=== PATIENT | female | born 1975 | race Caucasian/White ===

== ENCOUNTER 2020-04-20 11:13 | Outpatient (REF) | payer SELFPAY ==
--- NOTE | 2020-04-20 | MM_ITS ---
EXAMINATION: MM DIAGNOSTIC DIGITAL BREAST TOMOSYNTHESIS, BILATERAL US DIAGNOSTIC ULTRASOUND BREAST, RIGHT CLINICAL INFORMATION: 44-year-old with recent history right breast pain and imaging and transient redness. Symptoms have markedly improved following recent course of antibiotics. Family history breast cancer, mother, grandmother, aunt. The lifetime risk of breast cancer based on the Tyrer-Cuzick Model is 19%. COMPARISON: Mammography: 02/01/2018, 05/14/2013 (baseline) TECHNIQUE: Digital breast tomosynthesis is performed in both the craniocaudal and mediolateral oblique views along with computer-aided detection (CAD). Synthesized 2D images are generated from the tomosynthesis. Additional right CC view is provided. Ultrasound right breast is targeted to the areas of clinical concern. Patient is able to point to the areas of recent concern at time of imaging. Grayscale imaging and color Doppler are performed without and with harmonics. FINDINGS: There are scattered areas of fibroglandular density (ACR BI-RADS breast composition Category b). Parenchymal pattern is similar to prior studies. There is no developing density or interval mass or architectural abnormality. No skin thickening or coarsening of the Chaz's ligaments. No focal duct ectasia. No abnormal calcifications. The axilla are unremarkable. Ultrasound demonstrates no cystic or solid mass, architectural abnormality, or focal duct ectasia. No skin thickening or edema tracking in the soft tissue planes. Results are discussed with the patient at time of visit. MM/MM tomosynthesis diagnostic BI IMPRESSION: No mammographic evidence of malignancy or inflammatory changes. Unremarkable targeted right breast ultrasound. ASSESSMENT: BI-RADS 1: Negative RECOMMENDATION: 1. Patient should be managed based on the clinical impression. 2. Otherwise, routine annual screening mammography. This patient's information was entered into a reminder system with a target due date for their next mammogram.
== END 2020-04-20 11:14 | disposition home or self-care (01) ==
LOC: HO.MAMMO 11:13
PROVIDERS: PCP Family Medicine; Visit Provider Registered Nurse Community Health
DX: N64.4 Mastodynia (principal)
CPT/HCPCS: 76642; 77062; 77066

== ENCOUNTER 2020-10-19 13:06 | Emergency (ER) | payer MEDICAID, SELFPAY ==
[2020-10-19] VITALS (9 sets, daily range): BP systolic 107–128; BP diastolic 50–77; PULSE 69–90; RESP 14–18; TEMP 36.9–37.1; O2SAT 99–100; BMI 34.3
--- NOTE | 2020-10-19 13:39 | ED.RECABL ---
HPI - Recheck/Abnormal Lab/Rx General Chief Complaint: Recheck/Abnormal Lab/Rx Stated Complaint: BLOOD TRANSFUSION Time Seen by Provider: 10/19/20 13:30 Source: patient Mode of arrival: ambulatory Limitations: no limitations History of Present Illness HPI narrative: 44 yo female with past medical history of GENESIS secondary to heavy vaginal bleeding here with low blood counts. Patient was at her PCP yesterday and had annual labs drawn which showed a hgb 6.5. Not available here. H.o multiple blood transfusions last in April. Followed by INVESTIGATOR [employer]ARC[employer] for heavy vaginal bleeding. No current vaginal bleeding. Denies weakness, dizziness, chest pain or SOB. Does feel tired but states I have 8 kids so thats not abnormal. Here seeking blood transfusion. Patient tells me she normally received 2 units of blood and is discharged home. Related Data Allergies Allergy/AdvReac Type Severity Reaction Status Date / Time No Known Allergies Allergy Unverified 02/12/20 15:10 Review of Systems Review of Systems: Yes all other systems are reviewed and are negative Constitutional: Constitutional: Reports no additional constitutional complaints, Denies body ache(s), Denies chills, Denies fever(s), Denies headache(s), Reports lethargy and Denies weakness Eyes: Eyes: Reports no additional eye complaints and Denies change in vision ENT: Reports system reviewed and no additional complaints, except as documented, Denies dizziness, Denies headache(s), Denies nasal congestion, Denies nasal discharge and Denies neck pain Cardiovascular: Cardiovascular: Reports no additional cardiovascular complaints, Denies chest pain, Denies leg edema and Denies dyspnea Respiratory: Respiratory: Reports no additional respiratory complaints, Denies cough and Denies dyspnea Gastrointestinal: Gastrointestinal: Reports no additional gastrointestinal complaints, Denies abdominal pain, Denies diarrhea, Denies nausea and Denies vomiting Genitourinary: Genitourinary: Reports no additional female genitourinary complaints and Denies urinary incontinence Musculoskeletal: Musculoskeletal: Reports no additional musculoskeletal complaints, Denies back pain, Denies arthralgias, Denies joint swelling, Denies neck pain, Denies numbness and Denies tingling Integumentary/Breasts: Skin/Breast: Reports system reviewed and no additional complaints, except as docu and Denies rash Neurologic: Reports system reviewed and no additional complaints, except as documented, Denies Abnormal speech present, Denies dizziness, Denies headache(s), Denies numbness, Denies tingling and Denies weakness PMFSH Past Medical History Medical History Anemia Social History Social History Alcohol intake: never Smoking Status: Never smoker Use of substances other than those prescribed or required for medical reasons: No Advance Directives: No Advance Directives Information Provided: No Patient : No Physical Exam Vital Signs: Vital Signs: Last Vital Signs Temp 98.4 F 10/19/20 16:47 Pulse 73 10/19/20 16:47 Resp 16 10/19/20 16:47 BP 113/70 10/19/20 16:47 Pulse Ox 100 10/19/20 15:58 Body Mass Index 34.3 Const: General: cooperative, healthy appearing, comfortable and no acute distress Orientation/consciousness: patient oriented x3 Limitations: no limitations HENMT: Head: Yes normal to inspection Ears: hearing grossly normal bilaterally General nose exam: Normal external nose present Face and sinus: Yes normal facial exam Mouth: Normal oral and palatal mucosa present Throat: Yes posterior oropharynx normal Eyes: General: appearance normal, both eyes and all related structures Conjunctivae: conjunctival abnormal (pale conjunctivae ) bilateral Pupils: Equal, round and reactive pupils present Neck: Neck: Yes normal visual inspection Chest: Chest palpation & inspection: normal inspection of the chest Resp: Effort & Inspection: normal respiratory effort Auscultation: clear to auscultation bilaterally Cardio: Rate: regular rate Rhythm: regular rhythm Peripheral pulses: Peripheral pulses 2+ throughout GI: Inspection: Yes normal to inspection Palpation (GI): Soft to palpation and nontender Auscultation: normal bowel sounds Back/Spine/Pelvis: Thoracic/Lumbar Spine: thoracic and lumbar spine normal to inspection Skin: General skin exam: no rashes or lesions noted Neuro: General: patient oriented x3, no focal motor deficits and normal sensation to monofilament Cranial nerves: Yes Equal, round and reactive pupils present Cognition (Neuro): normal cognition Speech: No Abnormal speech present Gait exam (Neuro): Normal gait present Motor exam (neuro): 5/5 motor strength present throughout Extrem: General: Yes normal to inspection Course Course Course Narrative: 44 yo female with past medical history of chronic anemia secondary to vag bleeding here with complaints of annual labs done yesterday which showed hgb 6.5. No current bleeding. Asymptomatic with exception of fatigue. Will repeat labs, UA, ur preg. 1430-hgb 6.3. Patient consented for PRBC. 2 units PRBC ordered. Recommended checking pelvic exam but the patient declined this. She denies any active vaginal bleeding. She tells me she does have heavy periods and this has been the reason for her anemia in the past. She will follow-up with her powder line repairer.. Offered admission for the patient but she declined this. 1700-sign out to Mayur MCLEAN pending blood, repeat CBC and discharge home MDM - Recheck/Abnormal Lab/Rx Medical Records Attestation: I reviewed the patient's medical records. Lab Data Attestation: I reviewed the patient's lab results. Result diagrams: 10/19/20 14:05 10/19/20 14:05 Labs: Lab Results 10/19/20 10/19/20 10/19/20 Range/Units 14:05 14:05 14:05 WBC 4.1 L (4.8-10.8) X10*3/uL RBC 3.75 L (4.20-5.50) X10*6/uL Hgb 6.3 L* (12.0-16.0) g/dl Hct 24.4 L (37-47) % MCV 65.1 L (80-98) fL MCH 16.8 L (27.0-33.0) pg MCHC 25.8 L (31.0-35.0) g/dl RDW 18.6 H (11.0-16.0) % Plt Count 246 (160-400) X10*3/uL MPV 8.7 L (9.4-12.3) fL Immature Gran % (Auto) 0.2 (0.0-0.4) % Neut % (Auto) 48.9 (45-73) % Lymph % (Auto) 38.6 (20-40) % Roberts % (Auto) 9.9 (2-11) % Eos % (Auto) 1.2 (0-4) % Baso % (Auto) 1.2 (0-2) % Lymph # (Auto) 1.6 (1.2-4.9) X10*3/uL Roberts # (Auto) 0.4 (0.1-1.2) X10*3/uL Eos # (Auto) 0.1 (0.0-0.4) X10*3/uL Baso # (Auto) 0.1 (0.0-0.2) X10*3/uL Abs Immat Gran (auto) 0.01 (0.00-0.03) X10*3/uL Absolute Neuts (auto) 2.0 (2.0-8.3) X10*3/uL Absolute Nucleated RBC 0.000 (0.0-0.012) X10*3/uL Nucleated RBC % (auto) 0.0 (0.0-0.2) /100WBC PT 12.6 (10.8-13.0) SEC INR 1.1 (0.9-1.1) Sodium 134 L (135-145) mmol/L Potassium 3.7 (3.3-5.1) mmol/L Chloride 104 (96-108) mmol/L Carbon Dioxide 24 (22-29) mmol/L Anion Gap 10 L (12-20) BUN 13 (9-16) mg/dL Creatinine 0.68 (0.5-1.4) mg/dL Estim Creat Clear Calc 113.3 Estimated GFR > 60 Random Glucose 148 H (60-115) mg/dL Calcium 8.5 (8.4-10.2) mg/dL Blood Type Antibody Screen Crossmatch 10/19/20 Range/Units 14:42 WBC (4.8-10.8) X10*3/uL RBC (4.20-5.50) X10*6/uL Hgb (12.0-16.0) g/dl Hct (37-47) % MCV (80-98) fL MCH (27.0-33.0) pg MCHC (31.0-35.0) g/dl RDW (11.0-16.0) % Plt Count (160-400) X10*3/uL MPV (9.4-12.3) fL Immature Gran % (Auto) (0.0-0.4) % Neut % (Auto) (45-73) % Lymph % (Auto) (20-40) % Roberts % (Auto) (2-11) % Eos % (Auto) (0-4) % Baso % (Auto) (0-2) % Lymph # (Auto) (1.2-4.9) X10*3/uL Roberts # (Auto) (0.1-1.2) X10*3/uL Eos # (Auto) (0.0-0.4) X10*3/uL Baso # (Auto) (0.0-0.2) X10*3/uL Abs Immat Gran (auto) (0.00-0.03) X10*3/uL Absolute Neuts (auto) (2.0-8.3) X10*3/uL Absolute Nucleated RBC (0.0-0.012) X10*3/uL Nucleated RBC % (auto) (0.0-0.2) /100WBC PT (10.8-13.0) SEC INR (0.9-1.1) Sodium (135-145) mmol/L Potassium (3.3-5.1) mmol/L Chloride (96-108) mmol/L Carbon Dioxide (22-29) mmol/L Anion Gap (12-20) BUN (9-16) mg/dL Creatinine (0.5-1.4) mg/dL Estim Creat Clear Calc Estimated GFR Random Glucose (60-115) mg/dL Calcium (8.4-10.2) mg/dL Blood Type O Positive Antibody Screen NEGATIVE Crossmatch See Detail Discharge Plan Discharge Clinical Impression: GENESIS (iron deficiency anemia) Qualifiers: Iron deficiency anemia type: chronic blood loss Qualified Code(s): D50.0 - Iron deficiency anemia secondary to blood loss (chronic) Patient Disposition: Home, Self-Care Instructions: Iron Deficiency Anemia (ED) Additional Instructions: Continue your iron supplements Follow-up with your powder line repairer in regard to her vaginal bleeding Referrals: Leesa Mcintosh MD [Primary Care Provider] - 2 days
[2020-10-19 14:09] LABS: MANUAL DIFF FLAG NO
[2020-10-19 14:13] LABS: Basophils Absolute Auto 0.1 X10*3/uL (0.0-0.2); Basophils Percent Auto 1.2 % (0-2); Eosinophils Absolute Auto 0.1 X10*3/uL (0.0-0.4); Eosinophils Percent Auto 1.2 % (0-4); Hematocrit 24.4 % (37-47); Imm Gran Abs Auto 0.01 X10*3/uL (0.00-0.03); Imm Gran Pct Auto 0.2 % (0.0-0.4); Lymphocytes Absolute Auto 1.6 X10*3/uL (1.2-4.9); Lymphocytes Percent Auto 38.6 % (20-40); Mean Corpuscular HGB Conc 25.8 g/dl (31.0-35.0); Mean Corpuscular Hemoglobin 16.8 pg (27.0-33.0); Mean Corpuscular Volume 65.1 fL (80-98); Mean Platelet Volume 8.7 fL (9.4-12.3); Monocytes Absolute Auto 0.4 X10*3/uL (0.1-1.2); Monocytes Percent Auto 9.9 % (2-11); Neutrophils Percent Auto 48.9 % (45-73); Platelet Count 246 X10*3/uL (160-400); Red Blood Count 3.75 X10*6/uL (4.20-5.50); Red Cell Distribution Width 18.6 % (11.0-16.0); White Blood Count 4.1 X10*3/uL (4.8-10.8)
[2020-10-19 14:21] LABS: INTERNATIONAL NORM RATIO 1.1 (0.9-1.1); Prothrombin Time 12.6 SEC (10.8-13.0)
[2020-10-19 14:25] LABS: Hemoglobin 6.3 g/dl (12.0-16.0)
[2020-10-19 14:32] LABS: Anion Gap 10 (12-20); Blood Urea Nitrogen 13 mg/dL (9-16); Calcium 8.5 mg/dL (8.4-10.2); Carbon Dioxide 24 mmol/L (22-29); Chloride 104 mmol/L (96-108); Creatinine Clr Calc Pharmacy 113.3; Estimated Glomerular Filt Rate > 60; Glucose Random 148 mg/dL (60-115); Potassium 3.7 mmol/L (3.3-5.1); Sodium 134 mmol/L (135-145)
[2020-10-19 17:59] LABS: Glucose Urine UA NEG (NEG); Leukocyte Esterase Urine NEG (NEG); Nitrite Urine NEG (NEG); Specific Gravity - Urine 1.015 (1.005-1.025); Urine Blood NEG (NEG); Urine Ketones NEG (NEG); Urine Protein NEG (NEG-TRACE)
[2020-10-19 18:00] LABS: Appearance Urine CLEAR; Color Urine YELLOW
[2020-10-19 18:02] LABS: UPreg QC Valid YES; Urine Pregnancy NEGATIVE (NEGATIVE)
[2020-10-19 19:24] LABS: Hematocrit 31.2 % (37-47); Mean Corpuscular HGB Conc 28.8 g/dl (31.0-35.0); Mean Corpuscular Hemoglobin 20.7 pg (27.0-33.0); Mean Corpuscular Volume 71.7 fL (80-98); Mean Platelet Volume 9.1 fL (9.4-12.3); Platelet Count 224 X10*3/uL (160-400); Red Blood Count 4.35 X10*6/uL (4.20-5.50); Red Cell Distribution Width 24.5 % (11.0-16.0); White Blood Count 4.5 X10*3/uL (4.8-10.8)
== END 2020-10-19 20:08 | disposition home or self-care (01) ==
PROVIDERS: Nurse Practitioner Family; Emergency Provider Emergency Medicine; PCP Family Medicine
DX: D50.0 Iron deficiency anemia secondary to blood loss (chronic) (principal); N93.9 Abnormal uterine and vaginal bleeding, unspecified
CPT/HCPCS: 36415; 36430; 80048; 81003; 81025; 85025; 85027; 85610; 86850; 86900; 86901; 86923; 99284; 99285; P9016

== ENCOUNTER 2021-02-18 08:35 | Outpatient (REF) | payer MEDICAID, SELFPAY | END 2021-02-18 08:36 | disposition home or self-care (01) | LOC: HO.MDS 08:35 | PROVIDERS: PCP Family Medicine; Visit Provider Internal Medicine Medical Oncology | DX: D50.9 Iron deficiency anemia, unspecified (principal) | CPT/HCPCS: 96365; J2916 ==

== ENCOUNTER 2021-03-11 08:34 | Outpatient (REF) | payer MEDICAID, SELFPAY | END 2021-03-11 08:35 | disposition home or self-care (01) | LOC: HO.MDS 08:34 | PROVIDERS: PCP Internal Medicine; Visit Provider Internal Medicine Medical Oncology | DX: D50.9 Iron deficiency anemia, unspecified (principal) | CPT/HCPCS: 96365; J2916 ==

== ENCOUNTER 2021-05-27 08:46 | Outpatient (REF) | payer MEDICAID, SELFPAY ==
[2021-05-27 10:12] LABS: Binax Internal Control QC Valid; Binax Lot number: 9864; Binax Now Covid-19 Ag Negative (Negative)
== END 2021-05-27 08:47 | disposition home or self-care (01) ==
LOC: HO.LAB 08:46
PROVIDERS: Visit Provider Internal Medicine
DX: Z20.822 Contact with and (suspected) exposure to COVID-19 (principal)
CPT/HCPCS: 36415; C9803

== ENCOUNTER 2022-02-03 22:44 | Emergency (ER) | payer MEDICAID, SELFPAY ==
[2022-02-03 22:47] VITALS: BP 115/66; PULSE 78; RESP 18; TEMP 36.6; O2SAT 100; BMI 33.6
[2022-02-03 23:02] LABS: MANUAL DIFF FLAG NO
[2022-02-03 23:04] LABS: Basophils Percent Auto 0.8 % (0-2); Eosinophils Percent Auto 1.1 % (0-4); Imm Gran Abs Auto 0.01 X10*3/uL (0.00-0.03); Imm Gran Pct Auto 0.3 % (0.0-0.4); Lymphocytes Absolute Auto 1.3 X10*3/uL (1.2-4.9); Lymphocytes Percent Auto 34.7 % (20-40); Mean Corpuscular HGB Conc 24.5 g/dl (31.0-35.0); Mean Corpuscular Hemoglobin 15.1 pg (27.0-33.0); Mean Platelet Volume 8.7 fL (9.4-12.3); Monocytes Absolute Auto 0.4 X10*3/uL (0.1-1.2); Monocytes Percent Auto 11.3 % (2-11); Neutrophils Percent Auto 51.8 % (45-73); Platelet Count 305 X10*3/uL (160-400); Red Blood Count 3.57 X10*6/uL (4.20-5.50); Red Cell Distribution Width 19.9 % (11.0-16.0); White Blood Count 3.8 X10*3/uL (4.8-10.8)
[2022-02-03 23:08] LABS: Mean Corpuscular Volume 61.6 fL (80.0-98.0)
[2022-02-03 23:09] LABS: Hemoglobin 5.4 g/dl (12.0-16.0)
[2022-02-03 23:31] LABS: Alanine Aminotransferase 11 U/L (0-31); Albumin Level 4.3 g/dL (3.5-5.0); Alkaline Phosphatase 81 U/L (39-117); Anion Gap 16 (12-20); Aspartate Amino Transferase 19 U/L (5-31); Bilirubin Total 0.4 mg/dL (0.0-1.0); Blood Urea Nitrogen 11 mg/dL (9-16); Calcium 8.6 mg/dL (8.4-10.2); Carbon Dioxide 20 mmol/L (22-29); Chloride 106 mmol/L (96-108); Creatinine Clr Calc Pharmacy 116.7; Estimated Glomerular Filt Rate > 60; Glucose Random 107 mg/dL (60-115); Potassium 4.4 mmol/L (3.3-5.1); Sodium 138 mmol/L (135-145); Total Protein 7.6 g/dL (6.5-8.0)
--- NOTE | 2022-02-03 23:38 | ED_ITS ---
HPI - Recheck/Abnormal Lab/Rx General Chief Complaint: Recheck/Abnormal Lab/Rx Stated Complaint: need blood transfusion per DR. Mcintosh Time Seen by Provider: 02/03/22 22:51 Source: patient Mode of arrival: ambulatory Limitations: no limitations History of Present Illness HPI narrative: Patient comes to the emergency room complaining of low hemoglobin level. Patient states that she has been feeling very tired lately, no dizziness, no chest pain or shortness of breath. Patient states that when she started feeling tired, she goes to her PCP to get her hemoglobin checked because it usually means her hemoglobin is on the lower side. Patient was told that her hemoglobin is low and needed a transfusion. Patient has had multiple transfusions in the past. Other than fatigue, patient has no other symptoms. Patient states that she gets iron transfusions twice a year. Patient has history of heavy menstrual periods, patient is not currently menstruating. Reviewing patient's previous notes, seems that celiac disease was suspected at some point. Patient was never evaluated for celiac disease. Related Data Home Medications Medication Instructions Recorded Confirmed ferrous sulfate 325 mg (65 mg 325 mg PO DAILY 10/22/20 10/22/20 iron) tablet (Iron (ferrous sulfate)) Allergies Allergy/AdvReac Type Severity Reaction Status Date / Time No Known Allergies Allergy Unverified 02/12/20 15:10 Review of Systems Review of Systems: , Constitutional : No Weight loss, No Fever, No Chills, No Night Sweats, complaining of Fatigue, No Malaise ENT/Mouth : No Hearing loss, No Ear Pain, No Nasal Congestion, No Sinus Pain, No Hoarseness, No sore throat, No Rhinorrhea, No Swallowing Difficulty Eyes: No Eye Pain, No Swelling, No Redness, No Foreign Body, No Discharge, No Vision Changes Cardiovascular : No Chest Pain, No SOB, No Dyspnea on Exertion, No Orthopnea, No Edema, No Palpitations Respiratory : No Cough, No Sputum, No Wheezing, No Smoke Exposure, No Dyspnea Gastrointestinal : No Nausea, No Vomiting, No Diarrhea, No Constipation, No abdominal Pain, No Hematochezia, No Melena Genitourinary : no irregular bleeding, No Dysuria, No Urinary Frequency, No Hematuria, No Urinary Incontinence, No Urgency, No Flank Pain, No Urinary Flow Changes, No Hesitancy Musculoskeletal : No joint pain, No Myalgias, No Joint Swelling Skin : No Skin Lesions, No rash Neuro : No Weakness, No Numbness, No Paresthesias, No Loss of Consciousness, No Dizziness, No Headache Psych : No Anxiety/Panic, No Depression, No SI/HI/AH/VH, No Social Issues, Heme/Lymph: No Bruising, No Bleeding,No Lymphadenopathy Endocrine : No Polyuria, No Polydipsia, No Temperature Intolerance [facility] Past Medical History Medical History Anemia Family History Family History (Updated 10/22/20 @ 15:41 by Eda Christianson) Mother Breast cancer Maternal Aunt Breast cancer Maternal Grandmother Breast cancer Maternal Grandfather Skin cancer Social History Social History (Updated 10/22/20 @ 15:40 by Eda Christianson) Alcohol intake: never Patient Tobacco Use Status: Never used Tobacco Advance Directives: No Advance Directives Information Provided: No Physical Exam Vital Signs: Vital Signs: Last Vital Signs Temp 98.3 F 02/04/22 00:40 Pulse 76 02/04/22 00:40 Resp 19 02/04/22 00:40 BP 111/54 L 02/04/22 00:40 Pulse Ox 100 02/03/22 22:47 O2 Del Method 02/03/22 22:47 BMI result Body Mass Index 33.6 Const: Other: Appearance: Alert. Oriented X3. No acute distress. Eyes: Pupils equal, round and reactive to light. Pale conjunctiva ENT: Pharynx normal. Neck: Normal inspection. Neck supple. No lymph nodes noted. No crepitus CVS: Normal heart rate and rhythm. Pulses normal. Normal S1 and S2 Respiratory: No respiratory distress. Breath sounds normal. No Wheezing. No rales Abdomen: Soft and nontender. No rigidity. No distention. Skin: Skin warm and dry. Pale skin color. Normal skin turgor. Extremities: No lower extremity edema. No Lacerations. No Rash Neuro: Oriented X 3. No motor deficit. No sensory deficit. Moving all extremities. No slurred speech. CN 2 through 12 grossly intact Psych: calm, cooperative, normal affect Course Course Course Narrative: Patient agrees to have a blood transfusion. Patient signed the consent, no in patient's chart. Patient will likely need 3 units of blood. 01:50, patient tolerating well the blood transfusion, so far they are still on the 1st unit of blood. H&H pending after the last unit of blood. Sign-out given to Dr. Platt MDM - Recheck/Abnormal Lab/Rx Lab Data Result diagrams: 02/03/22 22:56 02/03/22 22:56 Labs: Lab Results 02/03/22 02/03/22 02/03/22 Range/Units 22:56 22:56 22:56 WBC 3.8 L (4.8-10.8) X10*3/uL RBC 3.57 L (4.20-5.50) X10*6/uL Hgb 5.4 L* (12.0-16.0) g/dl Hct 22.0 L (37.0-47.0) % MCV 61.6 L (80.0-98.0) fL MCH 15.1 L (27.0-33.0) pg MCHC 24.5 L (31.0-35.0) g/dl RDW 19.9 H (11.0-16.0) % Plt Count 305 (160-400) X10*3/uL MPV 8.7 L (9.4-12.3) fL Immature Gran % (Auto) 0.3 (0.0-0.4) % Neut % (Auto) 51.8 (45-73) % Lymph % (Auto) 34.7 (20-40) % Storey % (Auto) 11.3 H (2-11) % Eos % (Auto) 1.1 (0-4) % Baso % (Auto) 0.8 (0-2) % Lymph # (Auto) 1.3 (1.2-4.9) X10*3/uL Storey # (Auto) 0.4 (0.1-1.2) X10*3/uL Eos # (Auto) 0.0 (0.0-0.4) X10*3/uL Baso # (Auto) 0.0 (0.0-0.2) X10*3/uL Abs Immat Gran (auto) 0.01 (0.00-0.03) X10*3/uL Absolute Neuts (auto) 2.0 (2.0-8.3) x10*3/uL Absolute Nucleated RBC 0.000 (0.0-0.012) X10*3/uL Nucleated RBC % (auto) 0.0 (0.0-0.2) /100WBC Sodium 138 (135-145) mmol/L Potassium 4.4 (3.3-5.1) mmol/L Chloride 106 (96-108) mmol/L Carbon Dioxide 20 L (22-29) mmol/L Anion Gap 16 (12-20) BUN 11 (9-16) mg/dL Creatinine 0.64 (0.5-1.4) mg/dL Estim Creat Clear Calc 116.7 Estimated GFR > 60 Random Glucose 107 (60-115) mg/dL Calcium 8.6 (8.4-10.2) mg/dL Total Bilirubin 0.4 (0.0-1.0) mg/dL AST 19 (5-31) U/L ALT 11 (0-31) U/L Alkaline Phosphatase 81 (39-117) U/L Total Protein 7.6 (6.5-8.0) g/dL Albumin 4.3 (3.5-5.0) g/dL Blood Type O Positive Antibody Screen NEGATIVE Crossmatch See Detail Critical Care Time Critical Care Time Critical Care Time: Yes Total Critical Care Time: 60 Attestation: I have personally provided critical care time. Time includes review of lab data, radiology results, discussion with consultants, and monitoring for potential decompensation. Intervention performed as documented. Discharge Plan Discharge Clinical Impression: Iron deficiency anemia Patient Disposition: Still a Patient Prescriptions: No Action ferrous sulfate [Iron (ferrous sulfate)] 325 mg (65 mg iron) Tablet 325 mg PO DAILY
[2022-02-04] VITALS (12 sets, daily range): BP systolic 109–130; BP diastolic 54–84; PULSE 69–87; RESP 12–19; TEMP 36.6–37.2; O2SAT 98–100
--- NOTE | 2022-02-04 00:44 | PC.NURSE ---
Pt blood transfusion started, 2nd set vital signs similar to 1st, no S&S of reaction, no resp distress, rash/hives/itchiness, call light within reach, this RN continues to monitor.
--- NOTE | 2022-02-04 02:58 | PC.NURSE ---
Blood was hung 20 minutes after scheduled time, blood was in cooler bag and Lab was called and they verified that blood was safe to hang.
[2022-02-04 08:04] LABS: Hematocrit 32.5 % (37.0-47.0); Hemoglobin 9.3 g/dl (12.0-16.0)
== END 2022-02-04 09:22 | disposition home or self-care (01) ==
PROVIDERS: Emergency Provider Emergency Medicine; PCP Family Medicine
DX: D50.9 Iron deficiency anemia, unspecified (principal); Z79.899 Other long term (current) drug therapy
CPT/HCPCS: 36415; 36430; 80053; 85014; 85018; 85025; 86850; 86900; 86901; 86923; 99284; 99285; P9016

== ENCOUNTER 2022-10-04 10:05 | Emergency (ER) | payer MEDICAID, SELFPAY ==
[2022-10-04 10:51] VITALS: BP 131/74; PULSE 78; RESP 16; TEMP 36.3; O2SAT 100; BMI 35.4
[2022-10-04 11:31] LABS: MANUAL DIFF FLAG NO
[2022-10-04 11:36] LABS: Basophils Percent Auto 1.1 % (0-2); Eosinophils Percent Auto 1.1 % (0-4); Hematocrit 33.3 % (37.0-47.0); Hemoglobin 9.4 g/dl (12.0-16.0); Imm Gran Abs Auto 0.01 X10*3/uL (0.00-0.03); Imm Gran Pct Auto 0.3 % (0.0-0.4); Lymphocytes Absolute Auto 1.4 X10*3/uL (1.2-4.9); Lymphocytes Percent Auto 37.6 % (20-40); Mean Corpuscular HGB Conc 28.2 g/dl (31.0-35.0); Mean Corpuscular Hemoglobin 19.5 pg (27.0-33.0); Mean Corpuscular Volume 69.2 fL (80.0-98.0); Mean Platelet Volume 8.5 fL (9.4-12.3); Monocytes Absolute Auto 0.5 X10*3/uL (0.1-1.2); Monocytes Percent Auto 13.1 % (2-11); Neutrophils Absolute Auto 1.8 x10*3/uL (2.0-8.3); Neutrophils Percent Auto 46.8 % (45-73); Platelet Count 298 X10*3/uL (160-400); Red Blood Count 4.81 X10*6/uL (4.20-5.50); Red Cell Distribution Width 17.3 % (11.0-16.0); White Blood Count 3.8 X10*3/uL (4.8-10.8)
[2022-10-04 11:50] LABS: IDNOW Serial# BCCEAD1C; Influenza A Negative (Negative); Influenza B2 Negative (Negative)
--- NOTE | 2022-10-04 12:01 | ED.GENADULT ---
HPI - General Adult General Chief complaint: General Medical Stated complaint: Low Iron Time Seen by Provider: 10/04/22 12:00 Source: patient Mode of arrival: ambulatory Limitations: no limitations History of Present Illness HPI narrative: 46-year-old female with a history of iron deficiency anemia here with complaints of several days of generalized weakness, body aches, feeling lightheaded. Patient was referred in to have her hemoglobin checked as she has been quite anemic in the past. She does report that she has had some intermittent spotting for the last few months but is on control pills and feels like her menses is not as heavy as it has been before. She denies any abdominal pain, vomiting, diarrhea, chest pain, difficulty breathing, headache, fevers, URI symptoms, urinary symptoms. Related Data Home Medications Medication Instructions Recorded Confirmed ferrous sulfate 325 mg (65 mg 325 mg PO DAILY 10/22/20 10/22/20 iron) tablet (Iron (ferrous sulfate)) Allergies Allergy/AdvReac Type Severity Reaction Status Date / Time No Known Allergies Allergy Unverified 02/12/20 15:10 Review of Systems Review of Systems: Yes all other systems are reviewed and are negative Constitutional: Constitutional: Reports no additional constitutional complaints, Reports body ache(s), Denies chills, Denies fever(s), Denies headache(s) and Reports weakness Eyes: Eyes: Reports no additional eye complaints and Denies change in vision ENT: Reports system reviewed and no additional complaints, except as documented, Denies dizziness, Denies headache(s), Denies nasal congestion, Denies nasal discharge and Denies neck pain Cardiovascular: Cardiovascular: Reports no additional cardiovascular complaints, Denies chest pain, Denies leg edema and Denies dyspnea Respiratory: Respiratory: Reports no additional respiratory complaints, Denies cough and Denies dyspnea Gastrointestinal: Gastrointestinal: Reports no additional gastrointestinal complaints, Denies abdominal pain, Denies diarrhea, Denies nausea and Denies vomiting Genitourinary: Genitourinary: Reports no additional female genitourinary complaints and Denies urinary incontinence Musculoskeletal: Musculoskeletal: Reports no additional musculoskeletal complaints, Denies back pain, Denies arthralgias, Denies joint swelling, Denies neck pain, Denies numbness and Denies tingling Integumentary/Breasts: Skin/Breast: Reports system reviewed and no additional complaints, except as docu and Denies rash Neurologic: Reports system reviewed and no additional complaints, except as documented, Denies dizziness, Denies headache(s), Denies numbness, Denies tingling and Reports weakness PMFSH Past Medical History Attestation statement: The following information was validated with the patient. Source: old records reviewed and nursing notes reviewed Medical History Anemia Family History Family History Mother Breast cancer Maternal Aunt Breast cancer Maternal Grandmother Breast cancer Maternal Grandfather Skin cancer Social History Social History Alcohol intake: never Patient Tobacco Use Status: Never used Tobacco Advance Directives: No Advance Directives Information Provided: Yes Physical Exam ED Vital Signs: Vital Signs - 24 hr 10/04/22 10:51 10/04/22 12:21 10/04/22 12:23 Temperature 97.4 F Pulse Rate 78 71 76 Respiratory Rate 16 Blood Pressure 131/74 113/72 120/68 Pulse Oximetry 100 Oxygen Delivery Method Room Air 10/04/22 12:25 Temperature Pulse Rate 74 Respiratory Rate Blood Pressure 126/74 Pulse Oximetry Oxygen Delivery Method BMI result Body Mass Index 35.4 Const General: cooperative, healthy appearing, comfortable and no acute distress Orientation/consciousness: patient oriented x3 Limitations: no limitations HENMT Head: Yes normal to inspection Ears: hearing grossly normal bilaterally and TM's normal bilaterally General nose exam: Normal external nose present Face and sinus: Yes normal facial exam Throat: Yes posterior oropharynx normal, Yes tonsils normal and Yes uvula midline Eyes General: appearance normal, both eyes and all related structures Pupils: Equal, round and reactive pupils present Neck Neck: Yes normal visual inspection, Yes full ROM, Yes no lymphadenopathy and Yes no meningeal signs Chest Chest palpation & inspection: normal inspection of the chest Resp Effort & Inspection: normal respiratory effort Auscultation: clear to auscultation bilaterally Cardio Rate: regular rate Rhythm: regular rhythm Peripheral pulses: Peripheral pulses 2+ throughout GI Inspection: Yes normal to inspection Palpation (GI): Soft to palpation and nontender Auscultation: normal bowel sounds Back/Spine/Pelvis Thoracic/Lumbar Spine: thoracic and lumbar spine normal to inspection Skin General skin exam: no rashes or lesions noted Neuro General: patient oriented x3, moves all extremities and no meningeal signs Cranial nerves: Yes Equal, round and reactive pupils present Cognition (Neuro): normal cognition Gait exam (Neuro): Normal gait present Extrem General: Yes normal to inspection, Yes no pedal edema and Yes no calf tenderness Course Course Course Narrative: Labs show mild iron deficiency anemia unchanged from previous. Additional labs, orthostatics, EKG and UA are all negative. Patient is well-appearing. I recommend she follow up with primary care doctor outpatient. Reviewed worrisome signs and symptoms when to return to the emergency room. Comfortable plan for discharge home Medical Decision Making Medical Decision Making [facility] Narrative: 46-year-old female here with several days of generalized weakness, body aches and feeling lightheaded. Patient was concerned that her hemoglobin was low. Patient had labs from triage as well as flu testing which was all unremarkable. She does have some mild are deficiency anemia but her hemoglobin is quite stable today. Therefore I will obtain EKG, orthostatics, COVID testing, UA and urine . Differential Diagnosis Differential Diagnoses: The differential diagnosis associated with the presentation includes Anemia, electrolyte abnormality, orthostatic hypotension, viral syndrome, Lab Data [facility] Lab Attestation statement: I reviewed the patient's lab results. 10/04/22 11:26 10/04/22 11:26 Labs: Lab Results 10/04/22 10/04/22 10/04/22 Range/Units 11:26 11:26 11:26 WBC 3.8 L (4.8-10.8) X10*3/uL RBC 4.81 D (4.20-5.50) X10*6/uL Hgb 9.4 L (12.0-16.0) g/dl Hct 33.3 L (37.0-47.0) % MCV 69.2 L (80.0-98.0) fL MCH 19.5 L (27.0-33.0) pg MCHC 28.2 L (31.0-35.0) g/dl RDW 17.3 H (11.0-16.0) % Plt Count 298 (160-400) X10*3/uL MPV 8.5 L (9.4-12.3) fL Immature Gran % (Auto) 0.3 (0.0-0.4) % Neut % (Auto) 46.8 (45-73) % Lymph % (Auto) 37.6 (20-40) % [place] % (Auto) 13.1 H (2-11) % Eos % (Auto) 1.1 (0-4) % Baso % (Auto) 1.1 (0-2) % Lymph # (Auto) 1.4 (1.2-4.9) X10*3/uL [place] # (Auto) 0.5 (0.1-1.2) X10*3/uL Eos # (Auto) 0.0 (0.0-0.4) X10*3/uL Baso # (Auto) 0.0 (0.0-0.2) X10*3/uL Abs Immat Gran (auto) 0.01 (0.00-0.03) X10*3/uL Absolute Neuts (auto) 1.8 L (2.0-8.3) x10*3/uL Absolute Nucleated RBC 0.000 (0.0-0.012) X10*3/uL Nucleated RBC % (auto) 0.0 (0.0-0.2) /100WBC Sodium 139 (135-145) mmol/L Potassium 4.6 (3.3-5.1) mmol/L Chloride 108 (96-108) mmol/L Carbon Dioxide 24 (22-29) mmol/L Anion Gap 12 (12-20) BUN 8 L (9-16) mg/dL Creatinine 0.66 (0.5-1.4) mg/dL Estim Creat Clear Calc 116.3 Estimated GFR > 60 Random Glucose 96 (60-115) mg/dL Calcium 8.9 (8.4-10.2) mg/dL Total Bilirubin 0.4 (0.0-1.0) mg/dL AST 13 (5-31) U/L ALT 10 (0-31) U/L Alkaline Phosphatase 60 (39-117) U/L Total Protein 6.9 (6.5-8.0) g/dL Albumin 3.5 (3.5-5.0) g/dL TSH 0.78 (0.32-4.0) uIU/mL Urine Color Urine Appearance Urine pH (5.0-9.0) Ur Specific [place] (1.005-1.025) Urine Protein (Neg-Trace) mg/dL Urine Glucose (UA) (Negative) mg/dL Urine Ketones (Negative) mg/dL Urine Blood (Negative) Urine Nitrite (Negative) Ur Leukocyte Esterase (Negative) Urine Test (NEGATIVE) COVID-19 (ANAMIKA) (Negative) COVID-19 Clin Com Influenza Type A (KENNEDI) Negative (Negative) Influenza Type B (KENNEDI) Negative (Negative) Influenza A & B Note See Note 10/04/22 10/04/22 10/04/22 Range/Units 12:25 13:50 13:50 WBC (4.8-10.8) X10*3/uL RBC (4.20-5.50) X10*6/uL Hgb (12.0-16.0) g/dl Hct (37.0-47.0) % MCV (80.0-98.0) fL MCH (27.0-33.0) pg MCHC (31.0-35.0) g/dl RDW (11.0-16.0) % Plt Count (160-400) X10*3/uL MPV (9.4-12.3) fL Immature Gran % (Auto) (0.0-0.4) % Neut % (Auto) (45-73) % Lymph % (Auto) (20-40) % [place] % (Auto) (2-11) % Eos % (Auto) (0-4) % Baso % (Auto) (0-2) % Lymph # (Auto) (1.2-4.9) X10*3/uL [place] # (Auto) (0.1-1.2) X10*3/uL Eos # (Auto) (0.0-0.4) X10*3/uL Baso # (Auto) (0.0-0.2) X10*3/uL Abs Immat Gran (auto) (0.00-0.03) X10*3/uL Absolute Neuts (auto) (2.0-8.3) x10*3/uL Absolute Nucleated RBC (0.0-0.012) X10*3/uL Nucleated RBC % (auto) (0.0-0.2) /100WBC Sodium (135-145) mmol/L Potassium (3.3-5.1) mmol/L Chloride (96-108) mmol/L Carbon Dioxide (22-29) mmol/L Anion Gap (12-20) BUN (9-16) mg/dL Creatinine (0.5-1.4) mg/dL Estim Creat Clear Calc Estimated GFR Random Glucose (60-115) mg/dL Calcium (8.4-10.2) mg/dL Total Bilirubin (0.0-1.0) mg/dL AST (5-31) U/L ALT (0-31) U/L Alkaline Phosphatase (39-117) U/L Total Protein (6.5-8.0) g/dL Albumin (3.5-5.0) g/dL TSH (0.32-4.0) uIU/mL Urine Color Yellow Urine Appearance Clear Urine pH 6.5 (5.0-9.0) Ur Specific [place] 1.025 (1.005-1.025) Urine Protein Negative (Neg-Trace) mg/dL Urine Glucose (UA) Negative (Negative) mg/dL Urine Ketones Negative (Negative) mg/dL Urine Blood Negative (Negative) Urine Nitrite Negative (Negative) Ur Leukocyte Esterase Negative (Negative) Urine Test NEGATIVE (NEGATIVE) COVID-19 (ANAMIKA) Negative (Negative) COVID-19 Clin Com See Note Influenza Type A (KENNEDI) (Negative) Influenza Type B (KENNEDI) (Negative) Influenza A & B Note Independent Interpretation I performed an independent interpretation of an: EKG Interpretation: I independently reviewed the EKG which was normal sinus rhythm with a rate of 69, normal MI, normal QRS, normal QT, T-wave inversions in leads V1 which is unchanged from previous EKG 2018. There is also a Q-wave in lead 3 which is unchanged from EKg 2018 Discharge Plan Discharge Clinical Impression: Iron deficiency anemia Patient Disposition: Home, Self-Care Instructions: Anemia (ED) Additional Instructions: Your hemoglobin today is 9.4, hematocrit 33.3 Your additional labs are all okay. Your EKG is normal Please follow-up with her outpatient provider Prescriptions: No Action ferrous sulfate [Iron (ferrous sulfate)] 325 mg (65 mg iron) Tablet 325 mg PO DAILY Referrals: Leesa Mcintosh MD [Primary Care Provider] - 1 week Interventions: ED Discharge Assessment Last Done: 10/04/22 13:54 Discharge Date/Time: 10/04/22 13:55
[2022-10-04 12:06] LABS: Alanine Aminotransferase 10 U/L (0-31); Albumin Level 3.5 g/dL (3.5-5.0); Alkaline Phosphatase 60 U/L (39-117); Anion Gap 12 (12-20); Aspartate Amino Transferase 13 U/L (5-31); Bilirubin Total 0.4 mg/dL (0.0-1.0); Blood Urea Nitrogen 8 mg/dL (9-16); Calcium 8.9 mg/dL (8.4-10.2); Carbon Dioxide 24 mmol/L (22-29); Chloride 108 mmol/L (96-108); Creatinine Clr Calc Pharmacy 116.3; Estimated Glomerular Filt Rate > 60; Glucose Random 96 mg/dL (60-115); Potassium 4.6 mmol/L (3.3-5.1); Sodium 139 mmol/L (135-145); Total Protein 6.9 g/dL (6.5-8.0)
--- NOTE | 2022-10-04 12:10 | ECG_ITS ---
Test Reason : dizziness Blood Pressure : / mmHG Vent. Rate : 069 BPM Atrial Rate : 069 BPM P-R Int : 122 ms QRS Dur : 082 ms QT Int : 390 ms P-R-T Axes : 075 028 031 degrees QTc Int : 417 ms Normal sinus rhythm Low voltage QRS Borderline ECG When compared with ECG of 09-MAY-2018 09:27, No significant change was found Referred By: Tiffany Villarreal Electronically Signed By:EZEKEIL TIMMONS
[2022-10-04 12:21] VITALS: BP 113/72; PULSE 71
[2022-10-04 12:23] VITALS: BP 120/68; PULSE 76
[2022-10-04 12:25] VITALS: BP 126/74; PULSE 74
[2022-10-04 12:46] LABS: COVID-19 Test Negative (Negative); IDNOW Serial# BCCEAD1C
[2022-10-04 13:00] LABS: TSH reflex Free T4 0.78 uIU/mL (0.32-4.0)
[2022-10-04 14:00] LABS: Appearance Urine Clear; Color Urine Yellow; Glucose Urine UA Negative (Negative); Leukocyte Esterase Urine Negative (Negative); Nitrite Urine Negative (Negative); PH 6.5 (5.0-9.0); Specific Gravity - Urine 1.025 (1.005-1.025); Urine Blood Negative (Negative); Urine Ketones Negative (Negative); Urine Protein Negative (Neg-Trace)
[2022-10-04 14:02] LABS: UPreg QC Valid YES; Urine Pregnancy NEGATIVE (NEGATIVE)
== END 2022-10-04 13:55 | disposition home or self-care (01) ==
PROVIDERS: Nurse Practitioner Family; Emergency Provider Emergency Medicine Emergency Medical Services; PCP Family Medicine
DX: D50.9 Iron deficiency anemia, unspecified (principal); Z20.822 Contact with and (suspected) exposure to COVID-19; R53.1 Weakness
CPT/HCPCS: 80053; 81003; 81025; 84443; 85025; 87502; 87635; 93005; 99283

== ENCOUNTER 2023-04-25 16:59 | Outpatient (REF) | payer MEDICAID, SELFPAY ==
[2023-04-25 17:34] LABS: MANUAL DIFF FLAG NO
[2023-04-25 17:47] LABS: Basophils Percent Auto 0.9 % (0-2); Eosinophils Absolute Auto 0.1 X10*3/uL (0.0-0.4); Eosinophils Percent Auto 1.1 % (0-4); Imm Gran Abs Auto 0.02 X10*3/uL (0.00-0.03); Imm Gran Pct Auto 0.4 % (0.0-0.4); Lymphocytes Absolute Auto 1.5 X10*3/uL (1.2-4.9); Lymphocytes Percent Auto 33.3 % (20-40); Mean Corpuscular HGB Conc 25.2 g/dl (31.0-35.0); Mean Platelet Volume 9.2 fL (9.4-12.3); Monocytes Absolute Auto 0.6 X10*3/uL (0.1-1.2); Monocytes Percent Auto 13.7 % (2-11); Neutrophils Absolute Auto 2.3 x10*3/uL (2.0-8.3); Neutrophils Percent Auto 50.6 % (45-73); Platelet Count 325 X10*3/uL (160-400); Red Blood Count 3.63 X10*6/uL (4.20-5.50); Red Cell Distribution Width 19.3 % (11.0-16.0); White Blood Count 4.6 X10*3/uL (4.8-10.8)
[2023-04-25 18:07] LABS: Mean Corpuscular Volume 63.4 fL (80.0-98.0)
[2023-04-25 18:09] LABS: Cholesterol 119 mg/dL (<200); HDL Cholesterol 39 mg/dL (>40); Hemoglobin 5.8 g/dl (12.0-16.0); Iron 15 mcg/dL (30-160); LDL Cholesterol Calculated 63 mg/dL (<100); Percent Iron Saturation 4 % (15-50); Total Iron Binding Capacity 416 mcg/dL (228-428); Triglycerides 87 mg/dL (<150); Unsaturated Iron Binding 401 ug/dL
[2023-04-25 18:26] LABS: Ferritin < 2 ng/mL (10-250); TSH reflex Free T4 0.66 uIU/mL (0.32-4.0)
[2023-04-25 18:35] LABS: Vitamin B12 484 pg/mL (200-900)
[2023-04-26 09:27] LABS: HIV AB/AG Nonreactive (Nonreactive); HIV Num 1 0.05 S/CO (0.00-0.99); ~HepC Num1 0.18 S/CO (0.00-0.79); ~Hepatitis C Antibody Nonreactive (Nonreactive)
== END 2023-04-25 17:00 | disposition home or self-care (01) ==
LOC: HO.HHCL 16:59
PROVIDERS: Visit Provider Family Medicine
DX: Z11.3 Encounter for screening for infections with a predominantly sexual mode of transmission (principal); Z13.220 Encounter for screening for lipoid disorders; Z11.4 Encounter for screening for human immunodeficiency virus [HIV]; D50.9 Iron deficiency anemia, unspecified
CPT/HCPCS: 36415; 80061; 82607; 82728; 82746; 83540; 84443; 85025; 86803; 87389

== ENCOUNTER 2023-04-26 10:01 | Emergency (ER) | payer MEDICAID, SELFPAY ==
[2023-04-26] VITALS (8 sets, daily range): BP systolic 104–145; BP diastolic 51–79; PULSE 72–89; RESP 16–18; TEMP 36.4–36.8; O2SAT 97–100; BMI 34.6
[2023-04-26 11:16] LABS: MANUAL DIFF FLAG NO
--- NOTE | 2023-04-26 11:16 | ED.GENADULT ---
HPI - General Adult General Chief complaint: Recheck/Abnormal Lab/Rx Stated complaint: abnormal labs Time Seen by Provider: 04/26/23 11:04 Source: patient Mode of arrival: ambulatory Limitations: no limitations History of Present Illness HPI narrative: Patient is a 47-year-old female with history of chronic anemia presenting to the emergency department stating that she had labs drawn at PCP office yesterday, was contacted today stating she needed to come to the emergency department for a blood transfusion. States hemoglobin is 5.8. Denies chest pain, palpitations, shortness of breath. Denies dizziness, lightheadedness, syncope. Denies headache or vision changes. States that she was at the PCP office with her child and the child mention to PCP that patient went to bed much earlier than normal the day before and requested that the patient's H&H be tested. She denies feeling fatigued at this time. Denies any hematuria, hematochezia, melena. Denies any abdominal pain. MD complaint: abnormal labs Onset (ago): day(s) Associated symptoms: denies other symptoms Treatments prior to arrival: none Related Data Home Medications Medication Instructions Recorded Confirmed ferrous sulfate 325 mg (65 mg 325 mg PO DAILY 10/22/20 10/22/20 iron) tablet (Iron (ferrous sulfate)) Allergies Allergy/AdvReac Type Severity Reaction Status Date / Time No Known Allergies Allergy Verified 04/26/23 10:20 Review of Systems Review of Systems: As per HPI Yes all other systems are reviewed and are negative Constitutional: Constitutional: Reports as per HPI PMFSH Past Medical History Medical History Anemia Family History Family History Mother Breast cancer Maternal Aunt Breast cancer Maternal Grandmother Breast cancer Maternal Grandfather Skin cancer Social History Social History Alcohol intake: never Patient Tobacco Use Status: Never used Tobacco Advance Directives: No Physical Exam ED Vital Signs: Vital Signs - 24 hr 04/26/23 10:20 04/26/23 13:18 04/26/23 13:42 Temperature 97.5 F 98.0 F 97.8 F Pulse Rate 85 84 85 Respiratory Rate 18 16 16 Blood Pressure 106/51 L 104/59 L 107/62 Pulse Oximetry 100 Oxygen Delivery Method Room Air 04/26/23 16:50 04/26/23 17:11 04/26/23 17:15 Temperature 97.7 F 98.3 F 98.3 F Pulse Rate 78 72 72 Respiratory Rate 16 16 16 Blood Pressure 108/69 105/62 106/64 Pulse Oximetry 97 Oxygen Delivery Method Room Air 04/26/23 17:27 04/26/23 17:27 Temperature 98.1 F 98.1 F Pulse Rate 74 74 Respiratory Rate 16 16 Blood Pressure 111/61 111/61 Pulse Oximetry Oxygen Delivery Method BMI result Body Mass Index 34.6 Vital signs have been reviewed and appear to be correct. Blood pressure normal. Heart rate normal. Respiratory rate normal. Temperature normal. Oxygen saturation normal. Const General: cooperative, healthy appearing and no acute distress Orientation/consciousness: oriented to person, oriented to place, oriented to time and patient oriented x3 Limitations: no limitations HENMT Head: Yes normocephalic and Yes atraumatic Ears: external ears normal General nose exam: Normal external nose present Face and sinus: Yes face symmetric Mouth: oropharynx normal and moist mucous membranes Throat: Yes uvula midline Eyes Pupils: Equal, round and reactive pupils present Neck Neck: Yes normal visual inspection and Yes supple Resp Effort & Inspection: normal respiratory effort and able to speak in complete sentences Auscultation: clear to auscultation bilaterally Cardio Rate: regular rate Rhythm: regular rhythm Heart sounds: S1 normal heart sound present and S2 normal heart sound present GI Palpation (GI): Soft to palpation and nontender Auscultation: normoactive bowel sounds General: Yes no CVA tenderness Back/Spine/Pelvis Back: no CVA tenderness Skin General skin exam: elasticity normal and turgor normal Neuro General: oriented to person, oriented to place, oriented to time, patient oriented x3, moves all extremities, no focal motor deficits and CN's II-XI intact bilaterally Cranial nerves: Yes Equal, round and reactive pupils present Cognition (Neuro): normal cognition Extrem General: Yes full ROM, Yes no pedal edema and Yes no calf tenderness Psych Mental Status: mental status grossly normal Affect: normal affect Thought process: Normal thought process present Course Reevaluation(s) Reevaluation #1: Patient has received 2 units of RBCs, denies any new symptoms or complaints. Hemodynamically stable. Patient to be discharged with instructions to follow up with PCP within two days for repeat labs. Return precautions discussed at bedside. Patient verbalized understanding of and agreement with plan. Time: 20:41 Medications Administered Discontinued Medications Generic Name Dose Route Start Last Admin Trade Name Cindy PRN Reason Stop Dose Admin Sodium Chloride 100 mls @ 100 mls/hr 04/26/23 11:58 04/26/23 16:35 Ns IV 04/26/23 12:57 Infused ONCE ONE Infusion Sodium Chloride 100 mls @ 100 mls/hr 04/26/23 11:58 04/26/23 13:32 Ns IV 04/26/23 12:57 100 mls/hr ONCE ONE Administration Medical Decision Making Medical Decision Making [facility] Narrative: Patient is a 47-year-old female with history of chronic anemia presenting to the emergency department stating that she had labs drawn at PCP office yesterday, was contacted today stating she needed to come to the emergency department for a blood transfusion. On exam patient is awake, A+Ox3, VS WNL, afebrile, normal neurological exam without focal deficits, physical exam findings as above. Given reported symptoms and physical exam findings, initial differential includes chronic anemia, fatigue, dehydration. Labs notable for anemia with H&H of 6.0/23.8. Results discussed with patient and discussed possible admission. Patient states that she is agreeable to transfusion of 2 units PRBCs but does not want to be admitted. Given that patient is normotensive, not tachycardic, currently asymptomatic, feel this is reasonable. Two units PRBCs ordered. Please refer to course for remaining clinical decision making. Differential Diagnosis Differential Diagnoses: The differential diagnosis associated with the presentation includes As per [facility] Admission/Observation Consideration of admission/observation: Escalation of care including admission/observation considered Offered admission which patient declined. Lab Data [facility] Lab Attestation statement: I reviewed the patient's lab results. As per [facility] 04/26/23 11:09 04/26/23 11:09 Labs: Lab Results 04/26/23 Range/Units 11:09 WBC 4.4 L (4.8-10.8) X10*3/uL RBC 3.75 L (4.20-5.50) X10*6/uL Hgb 6.0 L* (12.0-16.0) g/dl Hct 23.8 L (37.0-47.0) % MCV 63.5 L (80.0-98.0) fL MCH 16.0 L (27.0-33.0) pg MCHC 25.2 L (31.0-35.0) g/dl RDW 19.0 H (11.0-16.0) % Plt Count 314 (160-400) X10*3/uL MPV 9.1 L (9.4-12.3) fL Immature Gran % (Auto) 0.2 (0.0-0.4) % Neut % (Auto) 51.9 (45-73) % Lymph % (Auto) 31.8 (20-40) % [place] % (Auto) 14.3 H (2-11) % Eos % (Auto) 0.9 (0-4) % Baso % (Auto) 0.9 (0-2) % Lymph # (Auto) 1.4 (1.2-4.9) X10*3/uL [place] # (Auto) 0.6 (0.1-1.2) X10*3/uL Eos # (Auto) 0.0 (0.0-0.4) X10*3/uL Baso # (Auto) 0.0 (0.0-0.2) X10*3/uL Abs Immat Gran (auto) 0.01 (0.00-0.03) X10*3/uL Absolute Neuts (auto) 2.3 (2.0-8.3) x10*3/uL Absolute Nucleated RBC 0.000 (0.0-0.012) X10*3/uL Nucleated RBC % (auto) 0.0 (0.0-0.2) /100WBC Sodium 136 (135-145) mmol/L Potassium 4.1 (3.3-5.1) mmol/L Chloride 108 (96-108) mmol/L Carbon Dioxide 21 L (22-29) mmol/L Anion Gap 11 L (12-20) BUN 9 (9-16) mg/dL Creatinine 0.53 (0.5-1.4) mg/dL Estim Creat Clear Calc 141.4 Estimated GFR > 60 Random Glucose 93 (60-115) mg/dL Calcium 8.6 (8.4-10.2) mg/dL Blood Type O Positive Antibody Screen NEGATIVE Crossmatch See Detail External Record Review External record reviewed: Inpatient record, Office record and Outpatient record Chronic Conditions Patient?s care impacted by: Other (anemia) Critical Care Time Critical Care Time Critical Care Time: Yes Total Critical Care Time: 45 Attestation: I have personally provided critical care time exclusive of time spent on separately billable procedures. Time includes review of lab data, radiology results, discussion with consultants, and monitoring for potential decompensation. Intervention performed as documented. Discharge Plan Discharge Clinical Impression: Chronic anemia Patient Disposition: Home, Self-Care Instructions: Anemia (ED) Additional Instructions: You were evaluated in the emergency department today for abnormal labs. Your hemoglobin and hematocrit were low. You were given 2 units of red blood cells in the emergency department today. Please follow up with your primary care provider within 2 days for recheck of labs. Return to the emergency department if you develop chest pain, palpitations, shortness of breath, dizziness, lightheadedness, blood in your urine or stool, dark tarry stool, fainting or any other concerning symptoms. Prescriptions: No Action ferrous sulfate [Iron (ferrous sulfate)] 325 mg (65 mg iron) Tablet 325 mg PO DAILY
--- NOTE | 2023-04-26 11:16 | PC.NURSE ---
history of chronic anemia per patient, lab work yesterday showed low hemoglobin and was told to come in today. patient asymptomatic and offering no complaints at this time. IV established, labs drawn and sent.
[2023-04-26 11:18] LABS: Basophils Percent Auto 0.9 % (0-2); Eosinophils Percent Auto 0.9 % (0-4); Hematocrit 23.8 % (37.0-47.0); Imm Gran Abs Auto 0.01 X10*3/uL (0.00-0.03); Imm Gran Pct Auto 0.2 % (0.0-0.4); Lymphocytes Absolute Auto 1.4 X10*3/uL (1.2-4.9); Lymphocytes Percent Auto 31.8 % (20-40); Mean Corpuscular HGB Conc 25.2 g/dl (31.0-35.0); Mean Platelet Volume 9.1 fL (9.4-12.3); Monocytes Absolute Auto 0.6 X10*3/uL (0.1-1.2); Monocytes Percent Auto 14.3 % (2-11); Neutrophils Absolute Auto 2.3 x10*3/uL (2.0-8.3); Neutrophils Percent Auto 51.9 % (45-73); Platelet Count 314 X10*3/uL (160-400); Red Blood Count 3.75 X10*6/uL (4.20-5.50); White Blood Count 4.4 X10*3/uL (4.8-10.8)
[2023-04-26 11:33] LABS: Anion Gap 11 (12-20); Blood Urea Nitrogen 9 mg/dL (9-16); Calcium 8.6 mg/dL (8.4-10.2); Carbon Dioxide 21 mmol/L (22-29); Chloride 108 mmol/L (96-108); Creatinine Clr Calc Pharmacy 141.4; Estimated Glomerular Filt Rate > 60; Glucose Random 93 mg/dL (60-115); Potassium 4.1 mmol/L (3.3-5.1); Sodium 136 mmol/L (135-145)
[2023-04-26 11:41] LABS: Mean Corpuscular Volume 63.5 fL (80.0-98.0)
--- NOTE | 2023-04-26 13:27 | PC.NURSE ---
Addendum entered by Zoraida Lira 04/26/23 13:41: continues to show no signs/symptoms of distress within first 15 minutes of infusion, tolerating well. continues to rest comfortably in room with even and unlabored respirations. Original Note: first unit of blood infusing at this time. patient with bilateral iv in each AC
--- NOTE | 2023-04-26 17:16 | PC.NURSE ---
second liter of blood infusing, continues to offer no complaints at this time
--- NOTE | 2023-04-26 19:35 | PC.NURSE ---
this rn assumed care of pt. pt receiving blood transfusion at this time, pt tolerating well.
--- NOTE | 2023-04-26 20:47 | PC.NURSE ---
pt blood completed at this time, saline open and flowing. pt denies SOB and chest pain. pt states she feels well
== END 2023-04-26 21:31 | disposition home or self-care (01) ==
PROVIDERS: Emergency Provider Emergency Medicine Emergency Medical Services; PCP Family Medicine
DX: D64.9 Anemia, unspecified (principal); Z79.899 Other long term (current) drug therapy
CPT/HCPCS: 36415; 36430; 80048; 85025; 86850; 86900; 86901; 86923; 96360; 96361; 99284; 99285; P9016

== ENCOUNTER 2023-08-31 07:36 | Emergency (ER) | payer MEDICAID, SELFPAY ==
[2023-08-31 07:44] VITALS: BP 121/70; PULSE 70; RESP 16; TEMP 36.3; O2SAT 98; BMI 14947.4
[2023-08-31 08:27] LABS: MANUAL DIFF FLAG NO
[2023-08-31 08:32] LABS: Basophils Percent Auto 0.6 % (0-2); Eosinophils Absolute Auto 0.1 X10*3/uL (0.0-0.4); Eosinophils Percent Auto 1.3 % (0-4); Hemoglobin 7.2 g/dl (12.0-16.0); Imm Gran Abs Auto 0.01 X10*3/uL (0.00-0.03); Imm Gran Pct Auto 0.2 % (0.0-0.4); Lymphocytes Absolute Auto 1.2 X10*3/uL (1.2-4.9); Mean Corpuscular HGB Conc 26.7 g/dl (31.0-35.0); Mean Platelet Volume 9.3 fL (9.4-12.3); Monocytes Absolute Auto 0.3 X10*3/uL (0.1-1.2); Neutrophils Percent Auto 64.9 % (45-73); Platelet Count 214 X10*3/uL (160-400); Red Blood Count 4.24 X10*6/uL (4.20-5.50); Red Cell Distribution Width 18.2 % (11.0-16.0); White Blood Count 4.7 X10*3/uL (4.8-10.8)
[2023-08-31 08:33] LABS: Mean Corpuscular Volume 63.7 fL (80.0-98.0)
[2023-08-31 08:41] LABS: Alanine Aminotransferase 9 U/L (0-31); Albumin Level 3.8 g/dL (3.5-5.0); Alkaline Phosphatase 75 U/L (39-117); Anion Gap 11 (12-20); Aspartate Amino Transferase 16 U/L (5-31); Bilirubin Total 0.4 mg/dL (0.0-1.0); Blood Urea Nitrogen 11 mg/dL (9-16); Calcium 8.5 mg/dL (8.4-10.2); Carbon Dioxide 23 mmol/L (22-29); Chloride 110 mmol/L (96-108); Estimated Glomerular Filt Rate > 60; Glucose Random 101 mg/dL (60-115); Potassium 3.7 mmol/L (3.3-5.1); Sodium 140 mmol/L (135-145); Total Protein 7.1 g/dL (6.5-8.0)
--- NOTE | 2023-08-31 09:28 | ED_ITS ---
HPI - General Adult General Chief complaint: Dizziness Stated complaint: Weak Headache Cough Time Seen by Provider: 08/31/23 09:01 Source: patient Mode of arrival: ambulatory Limitations: no limitations History of Present Illness HPI narrative: patient is a 47-year-old female who presents emergency department for evaluation of fatigue, lightheadedness, intermittent headache, intermittent cough. Symptom onset over the past few weeks with progression. She does admit to having heavy menstrual periods and chronic iron-deficiency anemia. Reports that she typically receives a blood transfusion every 3-4 months. She does not recall the exact date of her last transfusion but she states it has been a few months. She reports that her children have been ill recently with upper respiratory type symptoms. denies fevers, chills, neck pain, neck stiffness, confusion, chest pain, shortness of breath, difficulty breathing, nausea, vomiting, abdominal pain. Related Data Home Medications ?Medication ?Instructions ?Recorded ?Confirmed ferrous sulfate 325 mg (65 mg 325 mg PO DAILY 10/22/20 10/22/20 iron) tablet (Iron (ferrous sulfate)) Allergies Allergy/AdvReac Type Severity Reaction Status Date / Time No Known Allergies Allergy Verified 08/31/23 07:50 Review of Systems 2 Review of Systems: Yes all other systems are reviewed and are negative PMFSH Past Medical History Attestation statement: The following information was validated with the patient. Source: old records reviewed Medical History Anemia Family History Family History Mother Breast cancer Maternal Aunt Breast cancer Maternal Grandmother Breast cancer Maternal Grandfather Skin cancer Social History Social History Alcohol intake: never Patient Tobacco Use Status: Never used Tobacco Advance Directives: No Advance Directives Information Provided: No Physical Exam ED Vital Signs: Vital Signs - 24 hr 08/31/23 07:44 Temperature 97.4 F Pulse Rate 70 Respiratory Rate 16 Blood Pressure 121/70 Pulse Oximetry 98 Oxygen Delivery Method Room Air BMI result Body Mass Index 96014.4 Appearance: Alert.?Oriented to person, place and time. No acute distress.?Normal affect. Eyes: Pupils equal, round and reactive to light.? ENT: Pharynx normal.?? Neck: Normal inspection.? Neck supple.?? CVS: Heart sounds normal. Normal heart rate and rhythm.? Pulses normal.?? Respiratory: No respiratory distress.? Lung sounds clear to auscultation bilaterally?? Abdomen: Soft and non-tender. Normoactive bowel sounds. Skin: Skin warm and dry.? Pale for ethnicity.? Extremities: No lower extremity edema.? No calf ttp? Neuro: Moves all extremities spontaneously. Sensation intact bilaterally. Ambulates with normal steady gait. Medical Decision Making Medical Decision Making [facility] Narrative: patient is a 47-year-old female with past medical history of iron-deficiency anemia presenting to emergency department today for evaluation of weakness fatigue headaches and lightheadedness intermittently. No focal neurological deficits. Reports symptoms have been experienced in the past with her anemia, but she would also like to exclude any viral type illnesses. Upon review of her labs today she does have a microcytic anemia however hemoglobin and hematocrit of 7.2/27.0. Patient was made aware of this, advised that she should follow-up closely outpatient with her diesel engine tester and schedule routine outpatient transfusion, at this time do not feel that she requires emergent transfusion of PRBCs. CMP is overall unremarkable. Viral panel reveals Negative findings. TSH within normal range. Stable for discharge home, discussed worrisome signs and symptoms that would warrant re-evaluation in the emergency department. Differential Diagnosis Differential Diagnoses: The differential diagnosis associated with the presentation includes ( anemia, viral syndrome, thyroid dysfunction. not consistent with meningitis) Admission/Observation Consideration of admission/observation: Escalation of care including admission/observation considered ( see narrative above) Lab Data MDM Lab Attestation statement: I reviewed the patient's lab results. ( see narrative above) 08/31/23 08:22 08/31/23 08:22 Labs: Lab Results 08/31/23 08/31/23 Range/Units 08:22 09:12 WBC 4.7 L (4.8-10.8) X10*3/uL RBC 4.24 (4.20-5.50) X10*6/uL Hgb 7.2 L (12.0-16.0) g/dl Hct 27.0 L (37.0-47.0) % MCV 63.7 L (80.0-98.0) fL MCH 17.0 L (27.0-33.0) pg MCHC 26.7 L (31.0-35.0) g/dl RDW 18.2 H (11.0-16.0) % Plt Count 214 D (160-400) X10*3/uL MPV 9.3 L (9.4-12.3) fL Immature Gran % (Auto) 0.2 (0.0-0.4) % Neut % (Auto) 64.9 (45-73) % Lymph % (Auto) 26.0 (20-40) % [place] % (Auto) 7.0 (2-11) % Eos % (Auto) 1.3 (0-4) % Baso % (Auto) 0.6 (0-2) % Lymph # (Auto) 1.2 (1.2-4.9) X10*3/uL [place] # (Auto) 0.3 (0.1-1.2) X10*3/uL Eos # (Auto) 0.1 (0.0-0.4) X10*3/uL Baso # (Auto) 0.0 (0.0-0.2) X10*3/uL Abs Immat Gran (auto) 0.01 (0.00-0.03) X10*3/uL Absolute Neuts (auto) 3.0 (2.0-8.3) x10*3/uL Absolute Nucleated RBC 0.000 (0.0-0.012) X10*3/uL Nucleated RBC % (auto) 0.0 (0.0-0.2) /100WBC Sodium 140 (135-145) mmol/L Potassium 3.7 (3.3-5.1) mmol/L Chloride 110 H (96-108) mmol/L Carbon Dioxide 23 (22-29) mmol/L Anion Gap 11 L (12-20) BUN 11 (9-16) mg/dL Creatinine 0.60 (0.5-1.4) mg/dL Estim Creat Clear Calc -31.0 Estimated GFR > 60 Random Glucose 101 (60-115) mg/dL Calcium 8.5 (8.4-10.2) mg/dL Total Bilirubin 0.4 (0.0-1.0) mg/dL AST 16 (5-31) U/L ALT 9 (0-31) U/L Alkaline Phosphatase 75 (39-117) U/L Total Protein 7.1 (6.5-8.0) g/dL Albumin 3.8 (3.5-5.0) g/dL TSH 0.49 (0.32-4.0) uIU/mL Influenza Type A (PCR) NEGATIVE (Negative) Influenza Type B (PCR) NEGATIVE (Negative) RSV RNA Qual (PCR) NEGATIVE (Negative) SARS-CoV-2 RNA (RT-PCR) NEGATIVE (Negative) External Record Review External record reviewed: Outpatient record Discharge Plan Discharge Clinical Impression: Iron deficiency anemia Patient Disposition: Home, Self-Care Additional Instructions: as discussed continue taking your iron supplementation daily as recommended. Follow-up closely with your diesel engine tester. Return back to emergency department any new or worsening symptoms or concerns. Prescriptions: No Action ferrous sulfate [Iron (ferrous sulfate)] 325 mg (65 mg iron) Tablet 325 mg PO DAILY Referrals: Leesa Mcintosh MD [Primary Care Provider] - Print Language: Persian
[2023-08-31 09:59] LABS: Influenza A PCR NEGATIVE (Negative); Influenza B PCR NEGATIVE (Negative); Resp Syncy Virus RNA Qual PCR NEGATIVE (Negative); SARS COV2 PCR INHOUSE NEGATIVE (Negative)
--- NOTE | 2023-08-31 10:14 | PC.NURSE ---
pt has been sitting upright in bed in no distress while in tx area. pt has been speaking in full clear sentences and moving all ext = and briskly. awaiting lab results.
[2023-08-31 10:28] LABS: TSH reflex Free T4 0.49 uIU/mL (0.32-4.0)
[2023-08-31 10:55] VITALS: BP 120/83; PULSE 74; RESP 16; TEMP 36.9; O2SAT 98
== END 2023-08-31 10:56 | disposition home or self-care (01) ==
PROVIDERS: Nurse Practitioner Family; Emergency Provider Emergency Medicine; PCP Family Medicine
DX: D50.9 Iron deficiency anemia, unspecified (principal)
CPT/HCPCS: 0241U; 36415; 80053; 84443; 85025; 99282; 99283

== ENCOUNTER → 2023-11-21 11:00 | Outpatient (BNV) | payer MEDICAID, SELFPAY | PROVIDERS: PCP Family Medicine; Visit Provider Radiology Diagnostic Radiology | DX: Z12.31 Encounter for screening mammogram for malignant neoplasm of breast (principal) | CPT/HCPCS: 77063; 77067 ==

== ENCOUNTER 2023-11-21 11:01 | Outpatient (REF) | payer MEDICAID, SELFPAY | END 2023-11-21 11:02 | disposition home or self-care (01) | LOC: HO.MAMMO 11:01 | PROVIDERS: PCP Family Medicine; Visit Provider Family Medicine | DX: Z12.31 Encounter for screening mammogram for malignant neoplasm of breast (principal) | CPT/HCPCS: 77063; 77067 ==

== ENCOUNTER 2023-12-03 12:01 | Outpatient (REF) | payer MEDICAID, SELFPAY ==
[2023-12-03 13:50] LABS: MANUAL DIFF FLAG NO
[2023-12-03 14:07] LABS: Basophils Percent Auto 1.2 % (0-2); Eosinophils Percent Auto 0.6 % (0-4); Hematocrit 23.5 % (37.0-47.0); Lymphocytes Absolute Auto 1.3 X10*3/uL (1.2-4.9); Lymphocytes Percent Auto 38.7 % (20-40); Mean Corpuscular HGB Conc 25.5 g/dl (31.0-35.0); Mean Platelet Volume 9.5 fL (9.4-12.3); Monocytes Absolute Auto 0.5 X10*3/uL (0.1-1.2); Monocytes Percent Auto 15.2 % (2-11); Neutrophils Absolute Auto 1.4 x10*3/uL (2.0-8.3); Neutrophils Percent Auto 44.3 % (45-73); Platelet Count 282 X10*3/uL (160-400); Red Blood Count 3.74 X10*6/uL (4.20-5.50); White Blood Count 3.2 X10*3/uL (4.8-10.8)
[2023-12-03 14:37] LABS: Mean Corpuscular Volume 62.8 fL (80.0-98.0)
[2023-12-03 15:06] LABS: Iron 16 mcg/dL (30-160); Percent Iron Saturation 4 % (15-50); Total Iron Binding Capacity 402 mcg/dL (228-428); Unsaturated Iron Binding 386 ug/dL
[2023-12-03 15:16] LABS: Vitamin B12 524 pg/mL (200-900)
== END 2023-12-03 12:02 | disposition home or self-care (01) ==
LOC: HO.HHCL 12:01
PROVIDERS: Visit Provider Family Medicine
DX: D50.9 Iron deficiency anemia, unspecified (principal)
CPT/HCPCS: 36415; 82607; 83540; 85025

== ENCOUNTER 2023-12-04 06:57 | Emergency (ER) | payer MEDICAID, SELFPAY ==
[2023-12-04] VITALS (14 sets, daily range): BP systolic 101–110; BP diastolic 54–70; PULSE 64–83; RESP 14–19; TEMP 36.6–37; O2SAT 100; BMI 33.1
[2023-12-04 07:37] LABS: Hematocrit 23.4 % (37.0-47.0); Mean Corpuscular HGB Conc 25.6 g/dl (31.0-35.0); Mean Corpuscular Hemoglobin 15.9 pg (27.0-33.0); Mean Platelet Volume 9.1 fL (9.4-12.3); Platelet Count 249 X10*3/uL (160-400); Red Blood Count 3.78 X10*6/uL (4.20-5.50); Red Cell Distribution Width 18.6 % (11.0-16.0)
[2023-12-04 07:38] LABS: Mean Corpuscular Volume 61.9 fL (80.0-98.0); White Blood Count 2.5 X10*3/uL (4.8-10.8)
[2023-12-04 07:51] LABS: Anion Gap 8 (12-20); Blood Urea Nitrogen 7 mg/dL (9-16); Calcium 8.9 mg/dL (8.4-10.2); Carbon Dioxide 22 mmol/L (22-29); Chloride 111 mmol/L (96-108); Creatinine Clr Calc Pharmacy 116.9; Estimated Glomerular Filt Rate > 60; Glucose Random 97 mg/dL (60-115); Potassium 4.4 mmol/L (3.3-5.1); Sodium 137 mmol/L (135-145)
--- NOTE | 2023-12-04 08:00 | ED.RECABL ---
HPI - Recheck/Abnormal Lab/Rx General Chief Complaint: Recheck/Abnormal Lab/Rx Stated Complaint: blood transfusion Time Seen by Provider: 12/04/23 07:43 Source: patient Mode of arrival: ambulatory Limitations: no limitations History of Present Illness ED Provider: Marcus HOYT HPI narrative: 48 year old female hx of iron deficiency anemia requiring iron transfusions in the past and blood transfusions presents w/ fatigue , and concerns she needs a blood transfusion as her PCP told her that her hemaglobin was 6.0 and she needed one. Reports last transfusion was a few months ago and last iron infusion was about a year ago which she did not tolerate well due to joint pain and swelling. Patient reports overall she is feeling well at times she gets lightheaded if she changes positions rapidly, and she has been sleeping more than usual. She reports she has iron pills but does not take them regularly. Denies chest pain, shortness breath, fevers, chills, recent illness, vaginal bleeding, rectal bleeding headache, vision changes, dizziness. Related Data Home Medications ?Medication ?Instructions ?Recorded ?Confirmed ferrous sulfate 325 mg (65 mg 325 mg PO DAILY 10/22/20 10/22/20 iron) tablet (Iron (ferrous sulfate)) Allergies Allergy/AdvReac Type Severity Reaction Status Date / Time No Known Allergies Allergy Verified 12/04/23 07:21 Review of Systems Review of Systems: Yes all other systems are reviewed and are negative PMFSH Past Medical History Attestation statement: The following information was validated with the patient. Source: old records reviewed and nursing notes reviewed Medical History Anemia Family History Family History Mother Breast cancer Maternal Aunt Breast cancer Maternal Grandmother Breast cancer Maternal Grandfather Skin cancer Social History Social History Alcohol intake: never Patient Tobacco Use Status: Never used Tobacco Physical Exam Vital Signs: Vital Signs: Last Vital Signs Temp 98.1 F 12/04/23 10:50 Pulse 75 12/04/23 10:50 Resp 19 12/04/23 10:50 BP 109/60 12/04/23 10:50 Pulse Ox 100 12/04/23 10:50 O2 Del Method Room Air 12/04/23 10:50 BMI result Body Mass Index 33.1 vss Appearance: Alert.? Oriented X3.? No acute distress.? Head: Normocephalic, atraumatic, no step-offs or deformities Eyes: Pupils equal, round and reactive to light.? Neck: Normal inspection.? Neck supple.? CVS: Normal heart rate and rhythm.? Pulses normal.? Respiratory: No respiratory distress.? Breath sounds normal.? Abdomen: Soft and nontender.? Skin: Skin warm and dry.? Normal skin color.? Normal skin turgor.? Extremities: No lower extremity edema.? No calf ttp. 5/5 strength to bilateral upper and lower extremities Neuro: Oriented X 3.? No motor deficit.? No sensory deficit. CN 2-12 intact Rectal exam: refused for this reason unable to obtain OBS Course Reevaluation(s) Reevaluation #1: CBC with baseline leukopenia and with a microcytic anemia that appears to be lower than patient's baseline. Patient's chemistry unremarkable. Patient refusing occult blood per rectum sample. She states she has had multiple in the past all of which have been negative. I did obtain verbal and written consent for blood transfusion. 2 units of packed red blood cells are ordered. Will repeat labs after she receives blood. Time: 08:09 Reevaluation #2: Patient doing well with blood. Repeat labs pending. Time: 10:37 Reevaluation #3: Orthostatic vital signs negative. Patient feeling better. Repeat hemoglobin 7.1. This is after the 1st unit of blood. This is around patient's baseline. No signs of hemodynamic instability. Patient to be discharged home advised to follow up with PCP. Educated patient on diagnosis and treatment plan, answered all question, patient verbalizes understanding. At this time patient will be discharged home, advised to return with new or worsening symptoms. Educated on worrisome signs and symptoms and when to return. At this time I feel comfortable discharge home. Time: 12:04 Medications Administered Discontinued Medications Generic Name Dose Route Start Last Admin Trade Name Freq PRN Reason Stop Dose Admin Sodium Chloride 100 mls @ 100 mls/hr 12/04/23 08:04 12/04/23 10:18 Ns IV 12/04/23 09:03 Infused ONCE ONE Infusion Medical Decision Making Medical Decision Making [facility] Narrative: 48 year old female presents w/ concerns that she needs a transfusion, per PCP low H&H PE benign. Rectal refused. Likely chronic anemia needing a transfusion. Unlikley lower or upper gi bleed. No signs of hemodynamic instability. Plan- labs, type and screen, OBS ( ordered but patient refusing) Differential Diagnosis Differential Diagnoses: The differential diagnosis associated with the presentation includes Likely chronic anemia needing a transfusion. Unlikley lower or upper gi bleed. No signs of hemodynamic instability. Admission/Observation Consideration of admission/observation: Escalation of care including admission/observation considered possible Lab Data [facility] Lab Attestation statement: I reviewed the patient's lab results. 12/04/23 11:39 12/04/23 07:29 Labs: Lab Results 12/04/23 12/04/23 Range/Units 07:29 11:39 WBC 2.5 L 3.9 L (4.8-10.8) X10*3/uL RBC 3.78 L 4.04 L (4.20-5.50) X10*6/uL Hgb 6.0 L* 7.1 L (12.0-16.0) g/dl Hct 23.4 L 26.1 L (37.0-47.0) % MCV 61.9 L 64.6 L (80.0-98.0) fL MCH 15.9 L 17.6 L (27.0-33.0) pg MCHC 25.6 L 27.2 L (31.0-35.0) g/dl RDW 18.6 H 21.2 H (11.0-16.0) % Plt Count 249 245 (160-400) X10*3/uL MPV 9.1 L 8.7 L (9.4-12.3) fL Immature Gran % (Auto) Cancelled 0.3 Neut % (Auto) Cancelled 46.4 Lymph % (Auto) Cancelled 36.6 [place] % (Auto) Cancelled 14.1 H Eos % (Auto) Cancelled 1.3 Baso % (Auto) Cancelled 1.3 Lymph # (Auto) Cancelled 1.4 [place] # (Auto) Cancelled 0.6 Eos # (Auto) Cancelled 0.1 Baso # (Auto) Cancelled 0.1 Abs Immat Gran (auto) Cancelled 0.01 Absolute Neuts (auto) Cancelled 1.8 L Absolute Nucleated RBC 0.000 0.000 (0.0-0.012) X10*3/uL Nucleated RBC % (auto) 0.0 0.0 (0.0-0.2) /100WBC Neutrophils % (Manual) 31 L (45-73) % Band Neutrophils % 1 L (3-5) % Lymphocytes % (Manual) 45 H (20-40) % Atypical Lymphs % (Man) 1 (0-6) % Monocytes % (Manual) 19 H (2-11) % Eosinophils % (Manual) 2 (0-4) % Basophils % (Manual) 1 (0-2) % Abs Neuts (Manual) 0.8 L (2.0-8.3) X10*3/uL Lymphocytes # (Manual) 1.1 L (1.2-4.9) X10*3/uL Monocytes # (Manual) 0.5 (0.1-1.2) X10*3/uL Eosinophils # (Manual) 0.1 (0.0-0.4) X10*3/uL Toxic Vacuolation PRESENT Platelet Estimate NORMAL (NORMAL) Plt Morphology Comment NORMAL RBC Morphology NOTED Hypochromasia 2+ (15-30) /OIF Microcytosis 2+ (15-30) /OIF Ovalocytes 1+ (5-14) /OIF Stomatocytes 1+ (5-14) /OIF Smear Path Review SEE NOTE Sodium 137 (135-145) mmol/L Potassium 4.4 (3.3-5.1) mmol/L Chloride 111 H (96-108) mmol/L Carbon Dioxide 22 (22-29) mmol/L Anion Gap 8 L (12-20) BUN 7 L (9-16) mg/dL Creatinine 0.62 (0.5-1.4) mg/dL Estim Creat Clear Calc 116.9 Estimated GFR > 60 Random Glucose 97 (60-115) mg/dL Calcium 8.9 (8.4-10.2) mg/dL Blood Type O Positive Antibody Screen NEGATIVE Crossmatch See Detail External Record Review External record reviewed: Inpatient record, Office record, Outpatient record, Prior outpatient labs, Prior outpatient radiology, Primary care record and Outside ED record Chronic Conditions Patient?s care impacted by: Other (iron deficiency anemia ) Critical Care Time Critical Care Time Critical Care Time: Yes Total Critical Care Time: 35 Attestation: I attest to this time spent taking care of the patient, obtaining history, physical, reviewing labs, transfusion and monitoring Discharge Plan Discharge Clinical Impression: Iron deficiency anemia Patient Disposition: Home, Self-Care Instructions: Anemia (ED) Additional Instructions: Take your medications as prescribed. If you were prescribed antibiotics today, it is important that you take your medication to their entirety, do not skip any doses, do not finish them early. Follow-up with your primary care provider this week. Return to the emergency department with new or worsening symptoms. Such as fevers, chills, chest pain, shortness of breath, nausea, vomiting, dizziness, headache, vision changes, lethargy In case of emergency call 911 Please continue to take your iron pills as prescribed. Follow up with PCP for repeat labs in 2-3 days. Prescriptions: No Action ferrous sulfate [Iron (ferrous sulfate)] 325 mg (65 mg iron) Tablet 325 mg PO DAILY Referrals: [facility] [place] Oncology/Hematology [Provider Group] - 2 days Leesa Mcintosh MD [Primary Care Provider] - 2 days Stand Alone Forms: Work/School Release Print Language: Armenian
[2023-12-04 08:17] LABS: Atypical Lymphs Percent Manual 1 % (0-6); Band Neutrophils Percent 1 % (3-5); Basophils Percent Manual 1 % (0-2); Eosinophils Absolute Manual 0.1 X10*3/uL (0.0-0.4); Eosinophils Percent Manual 2 % (0-4); Lymphocytes Absolute Manual 1.1 X10*3/uL (1.2-4.9); Lymphocytes Percent Manual 45 % (20-40); Monocytes Absolute Manual 0.5 X10*3/uL (0.1-1.2); Monocytes Percent Manual 19 % (2-11); Neutrophils Absolute Manual 0.8 X10*3/uL (2.0-8.3); Neutrophils Percent Manual 31 % (45-73)
[2023-12-04 08:18] LABS: Microcytosis 2+ (15-30) /OIF; Platelet Estimate NORMAL (NORMAL); Platelet Morphology Comment NORMAL; RBC Morphology NOTED
[2023-12-04 08:19] LABS: Hypochromasia 2+ (15-30) /OIF; Ovalocytes 1+ (5-14) /OIF; Stomatocytes 1+ (5-14) /OIF; Toxic Vacuolation PRESENT
--- NOTE | 2023-12-04 09:39 | PC.NURSE ---
Addendum entered by Melissa Blanchard 12/04/23 09:41: NSR on monitor. Breathing even/unlabored Original Note: IV 20g to right AC established, PRBC started per order. VSS. Pt offers no complaints other than feeling sl more tired than usual. Skin is midly pale, warm and dry.
[2023-12-04 11:42] LABS: MANUAL DIFF FLAG NO
[2023-12-04 11:47] LABS: Basophils Absolute Auto 0.1 X10*3/uL (0.0-0.2); Basophils Percent Auto 1.3 % (0-2); Eosinophils Absolute Auto 0.1 X10*3/uL (0.0-0.4); Eosinophils Percent Auto 1.3 % (0-4); Hematocrit 26.1 % (37.0-47.0); Hemoglobin 7.1 g/dl (12.0-16.0); Imm Gran Abs Auto 0.01 X10*3/uL (0.00-0.03); Imm Gran Pct Auto 0.3 % (0.0-0.4); Lymphocytes Absolute Auto 1.4 X10*3/uL (1.2-4.9); Lymphocytes Percent Auto 36.6 % (20-40); Mean Corpuscular HGB Conc 27.2 g/dl (31.0-35.0); Mean Corpuscular Hemoglobin 17.6 pg (27.0-33.0); Mean Platelet Volume 8.7 fL (9.4-12.3); Monocytes Absolute Auto 0.6 X10*3/uL (0.1-1.2); Monocytes Percent Auto 14.1 % (2-11); Neutrophils Absolute Auto 1.8 x10*3/uL (2.0-8.3); Neutrophils Percent Auto 46.4 % (45-73); Platelet Count 245 X10*3/uL (160-400); Red Blood Count 4.04 X10*6/uL (4.20-5.50); Red Cell Distribution Width 21.2 % (11.0-16.0); White Blood Count 3.9 X10*3/uL (4.8-10.8)
[2023-12-04 11:50] LABS: Mean Corpuscular Volume 64.6 fL (80.0-98.0)
[2023-12-04 12:24] LABS: Iron 9 mcg/dL (30-160); Percent Iron Saturation 2 % (15-50); Total Iron Binding Capacity 378 mcg/dL (228-428); Unsaturated Iron Binding 369 ug/dL
--- NOTE | 2023-12-04 12:28 | PC.NURSE ---
Second transfusion initiated. VSS, will re-asses VS at 12:37p. Pt with no complaints at this time.
== END 2023-12-04 15:14 | disposition home or self-care (01) ==
PROVIDERS: Physician Assistant; Emergency Provider Emergency Medicine; PCP Family Medicine
DX: D50.9 Iron deficiency anemia, unspecified (principal); R42 Dizziness and giddiness; D72.819 Decreased white blood cell count, unspecified
CPT/HCPCS: 36415; 36430; 80048; 83540; 85007; 85025; 85027; 86850; 86900; 86901; 86923; 96360; 96361; 99284; 99285; P9016

== ENCOUNTER → 2023-12-17 08:01 | Outpatient (REF) | payer MEDICAID, SELFPAY ==
--- NOTE | 2023-12-17 08:05 | CA_ITS ---
Transthoracic Echocardiogram Patient (Last, First, Middle): Tana Barriga, Gender: Female Date of : 1975 Age: 48 Procedure Date: 12/17/2023 Procedure Type: Transthoracic Echocardiogram Location: OP Height: 160.02 cm Weight: 86.18 kg BSA: 1.89 m2 Heart Rate: 65 bpm BP: 110 / 70 mmHg Steam Pipe Fitter: JOSE Referring MD: Leesa Mcintosh MD Symptoms: MURMUR Z86.79 Study Quality: Fair ECG Rhythm: Sinus Conclusions: - The left ventricular systolic function is normal. The calculated ejection fraction is 68% by biplane method. - No obvious valvular pathology seen on this study. Findings Left Ventricle Normal left ventricular cavity size. There is normal left ventricular wall thickness. The left ventricular systolic function is normal. The calculated ejection fraction is 68% by biplane method. There is no evidence of regional wall motion abnormalities. Diastolic function is normal for age. Right Ventricle Normal right ventricular cavity size and systolic function. Atria Both atria are normal in size. Aortic Valve There is a normal trileaflet aortic valve. There is no aortic valve stenosis. There is trace (trivial) aortic valve regurgitation. Mitral Valve The mitral valve appears normal. There is trace mitral valve regurgitation. There is no mitral valve stenosis. Pulmonic Valve The pulmonic valve is likely normal. Tricuspid Valve Normal tricuspid valve structure. There is trace tricuspid valve regurgitation. There is no evidence of pulmonary hypertension. Great Vessels The asc aorta is normal in size. Venous The inferior vena cava is normal in size and collapses greater than 50% with inspiration. Pericardium/Pleural There is no evidence of pericardial effusion. Prior Study Comparison No prior study available for comparison. Recommendations, Care & Conclusions No obvious valvular pathology seen on this study. Measurements 2D Linear Measurements IVSd: 0.72 0.6-0.9/0.6-1.0 cm LVIDd: 4.29 3.9-5.3/4.2-5.9 cm LVIDd Index: 2.27 2.4-3.2/2.2-3.1 cm/m2 LVIDs: 2.54 2.0-3.6 cm LVPWd: 0.89 0.7-1.1 cm LA Diam: 3.20 2.7-3.8/3.0-4.0 cm LAIDs Index: 1.69 1.5-2.3 cm/m2 LV Mass: 131.48 67-162/88-224 g LV Mass Index: 69.57 43-95/49-115 g/m2 LVOT Diam: 1.80 3.0+(-)1.3 cm 2D Systolic Function EF 4C: 70.10 >55% EF 2C: 64.60 >55% EF BiP: 67.60 >55% Mitral Valve MV Pk E: 1.05 MV PK A: 0.80 MV Decel Time: 187.00 E/A: 1.30 E'Lateral: 12.30 E'Medial: 9.25 E/E' Med: 11.40 E/E' Lat: 8.50 PHT: 55.00 MVA PHT: 4.00 Decel [place]: 5.60 Aortic Valve AoV Pk Abe: 1.73 AoV Mn Abe: 1.12 AoV VTI: 0.39 AoV Pk Grad: 12.00 Aov Mn Grad: 6.00 DIMITRI Cont.VTI: 2.20 LVOT LVOT Pk Abe: 1.71 LVOT Mn Abe: 1.03 LVOT VTI: 0.34 LVOT Pk Grad: 12.00 LVOT Mn Grad: 5.00 LVOT Diam: 1.80 LVOT Area: 2.54 Diastolic Function MV Pk E: 1.05 MV Pk A: 0.80 E/A: 1.30 E'Medial: 9.25 E/E' Med: 11.40 E' Laterial: 12.30 E/E' Lat: 8.50 Right Ventricle TAPSE (mm): 25.20 TVS' Abe: 13.30 Tricuspid Valve TR Pk Abe: 2.10 TR Pk Grad: 18.00 RA Press: 3.00 RVSP: 21.00 Great Vessels Aorta Sinus of Valsalva: 2.80 2.0-3.5 cm Ao Asc: 2.90 2.1-3.4 cm Pulmonary Valve PV Pk Abe: 0.96 Peak PV Grad: 4.00 Updated in Other Vendor System with Status of Final Rupesh Blankenship MD electronically signed on 12/17/2023 10:38:06 AM with status of Final
== END ==
LOC: HO.CARD 08:01
PROVIDERS: PCP Family Medicine; Visit Provider Family Medicine
DX: Z86.79 Personal history of other diseases of the circulatory system (principal)
CPT/HCPCS: 93306

== ENCOUNTER → 2023-12-17 08:05 | Outpatient (BNV) | payer MEDICAID, SELFPAY | PROVIDERS: PCP Family Medicine; Visit Provider Internal Medicine | DX: I35.1 Nonrheumatic aortic (valve) insufficiency (principal); R01.1 Cardiac murmur, unspecified | CPT/HCPCS: 93306 ==

== ENCOUNTER → 2024-01-31 14:00 | Outpatient (RCR) | payer MEDICAID, SELFPAY ==
--- NOTE | 2020-10-22 15:48 | P.PNHO_ITS ---
Medical Summary - Medical Summary Date of Service: 10/22/20 Chief complaint: Follow-up for: Iron deficiency anemia. Medical Summary: DIAGNOSIS: IRON DEFICIENCY ANEMIA. CURRENT THERAPY: BLOOD TRANSFUSION on Sunday. In April 2020. Previously on April. She received Ferrlecit between 04/28/19 through 06/30/2019. Interval History Interval history: This is a 44 year-old lady, here for a follow-up visit, after a long hiatus. She tells me she had a physical and labs done, last week. Her hemoglobin was noted to be down to 6.5. She received 2 units of blood, on Sunday. Hemoglobin was 6.3 then. She had actually not been feeling too tired. She has dizziness no headache. She denies shortness of breath. Denies chest pain. No abdominal pain nausea vomiting heartburn indigestion. Bowels are working without any gross blood in it. She enjoys a good appetite. She has gained weight. Her periods are really heavy. They occur every month however last 7 days, with heavy blood clots the 1st 3 days. She is in good spirits. Rest of the review of systems is unremarkable. Review of Systems - Constitutional Reports system reviewed and no additional complaints, except as documented - Eyes Reports system reviewed and no additional complaints, except as documented - ENT Reports system reviewed and no additional complaints, except as documented - Cardiovascular Reports system reviewed and no additional complaints, except as documented - Respiratory Reports no additional respiratory complaints - Gastrointestinal Reports system reviewed and no additional complaints, except as documented - Genitourinary Reports no additional female genitourinary complaints - Musculoskeletal Reports system reviewed and no additional complaints, except as documented - Integumentary/Breasts Skin/Breast: Reports no additional skin complaints - Neurologic Reports system reviewed and no additional complaints, except as documented - Psychiatric Reports system reviewed and no additional complaints, except as documented - Endocrine Reports no additional endocrine complaints - Hematologic/Lymphatic Reports system reviewed and no additional complaints, except as documented - Allergic/Immunologic Reports system reviewed and no additional complaints, except as documented PMFSH Medical History: Medical History (Last Reviewed 10/19/20 @ 13:46 by Tiffany Davis NP) Anemia Functional capacity: independent ambulation Patient : No Family History: Family History (Last Updated 10/22/20 @ 15:41 by Eda Christianson) Mother Breast cancer Maternal Aunt Breast cancer Maternal Grandmother Breast cancer Maternal Grandfather Skin cancer Social History: Social History (Last Updated 10/22/20 @ 15:40 by Eda Christianson) Alcohol History: Alcohol intake: never Alcohol History Details: Alcohol intake frequency: does not drink Tobacco History: Patient Tobacco Use Status: Never used Tobacco Substance Use History: Use of substances other than those prescribed or required for medical reasons : No Nutrition Assessment: Patient : No Oncology Screenings - ECOG Performance Status ECOG Performance Status: 0 Home Medications and Allergies Home Medications Medication Instructions Recorded Confirmed Type ferrous sulfate [Iron (ferrous 325 mg PO DAILY 10/22/20 10/22/20 History sulfate)] Allergies Allergy/AdvReac Type Severity Reaction Status Date / Time No Known Allergies Allergy Unverified 02/12/20 15:10 Exam - Constitutional Present: no acute distress - Routine HEENT Exam Head: Present: normal inspection Eye: Present: normal appearance ENT: Present: mucous membranes moist - Routine Neck Exam Present: full ROM - Routine Respiratory Exam Present: CTAB - Routine Cardiovascular Exam Cardiovascular: Present: RRR, S1, S2 - Routine Abdominal Exam Present: soft, nontender - Routine Rectal Exam Patient deferred: digital exam - Routine Extremities Exam Present: nontender - Routine Back/Spine/Pelvis Exam Back/Spine: Present: full ROM - Routine Skin Exam Present: intact - Routine Neurological Exam Present: alert, oriented X3 - Routine Psychiatric Exam Present: normal affect Data - Labs CBC & Chem 7: 10/22/20 15:47 10/22/20 15:47 Progress Note: A/P (1) Iron deficiency anemia Status: Acute Assessment and plan: This is a pleasant 44 year-old lady, with a history of microcytic anemia. Her iron studies revealed iron deficiency anemia. She does have a heavy period. So anemia is most likely related to chronic blood loss. DIFFERENTIAL DIAGNOSIS: 2. Iron deficiency related to malabsorption, from something like celiac disease. 3. Hemolytic anemia: Could be congenital, i.e Thalassemia, however previous normal MCVs, rules it out. 4. ACD. I proceeded with further evaluation. Her iron studies from 05/15: 12/498/2/<1. l checked B12 folate levels: 399/17.1. Checked celiac profile, to rule out multiple mineral malabsorptions related to celiac disease, this was normal. l checked a hemolytic screen: Retic: 0.9. She received a blood transfusion on Sunday. Prior to that was in April. Her hemoglobin has come up to 9.1, after the transfusion, however it has not normalized, so will arrange for IV Ferrlecit. PLAN: I will arrange for IV Ferrlecit once a week. Will set up an appointment with salesperson sewing machines to cure her underlying problem. She will return in 3 months for a follow up. Thanks, CC: Dr. Mcintosh. Dr. Horan. - Time Spent With Patient Total time spent is greater than 50% in coordination of care (as documented) at patient's floor/unit and/or counseling patient: 25 - 35 minutes
--- NOTE | 2020-10-22 15:48 | MHC.HEMONCMA ---
Pt presents to f/u on anemia. History reviewed and labs drawn.
[2020-10-22 15:49] LABS: MANUAL DIFF FLAG NO
[2020-10-22 15:57] LABS: Basophils Absolute Auto 0.1 X10*3/uL (0.0-0.2); Eosinophils Absolute Auto 0.1 X10*3/uL (0.0-0.4); Eosinophils Percent Auto 1.3 % (0-4); Hematocrit 31.9 % (37-47); Hemoglobin 9.1 g/dl (12.0-16.0); Imm Gran Abs Auto 0.01 X10*3/uL (0.00-0.03); Imm Gran Pct Auto 0.2 % (0.0-0.4); Lymphocytes Percent Auto 33.7 % (20-40); Mean Corpuscular HGB Conc 28.5 g/dl (31.0-35.0); Mean Corpuscular Hemoglobin 20.1 pg (27.0-33.0); Mean Corpuscular Volume 70.6 fL (80-98); Mean Platelet Volume 9.1 fL (9.4-12.3); Monocytes Absolute Auto 0.6 X10*3/uL (0.1-1.2); Monocytes Percent Auto 9.9 % (2-11); Neutrophils Absolute Auto 3.2 X10*3/uL (2.0-8.3); Neutrophils Percent Auto 53.9 % (45-73); Platelet Count 248 X10*3/uL (160-400); Red Blood Count 4.52 X10*6/uL (4.20-5.50); Red Cell Distribution Width 24.3 % (11.0-16.0)
[2020-10-22 16:21] LABS: Alanine Aminotransferase 12 U/L (0-31); Albumin Level 4.3 g/dL (3.5-5.0); Alkaline Phosphatase 78 U/L (39-117); Anion Gap 12 (12-20); Aspartate Amino Transferase 15 U/L (5-31); Bilirubin Total 0.4 mg/dL (0.0-1.0); Blood Urea Nitrogen 10 mg/dL (9-16); Carbon Dioxide 24 mmol/L (22-29); Chloride 105 mmol/L (96-108); Estimated Glomerular Filt Rate > 60; Glucose Random 86 mg/dL (60-115); Potassium 4.1 mmol/L (3.3-5.1); Sodium 137 mmol/L (135-145); Total Protein 7.3 g/dL (6.5-8.0)
[2020-10-22 16:41] LABS: Ferritin 4 ng/mL (10-250)
--- NOTE | 2020-11-23 11:18 | MHC.HEMONC ---
pt no show twice for iron. Spoke to pt - she states summer is crazy at her job and she will call when she can reschedule. Soraya in [facility] notified.
--- NOTE | 2021-02-04 11:37 | MHC.HEMONC ---
Received call from Soraya in [facility]. States pt was a no show for second time for Ferralicit infusion. Dr Rosen notified.
== END | disposition home or self-care (01) ==
LOC: HO.ONC 10-22 15:31
PROVIDERS: PCP Family Medicine; Visit Provider Internal Medicine Medical Oncology
DX: D50.9 Iron deficiency anemia, unspecified (principal)
CPT/HCPCS: 36415; 80053; 82728; 85025; 99214

== ENCOUNTER 2024-04-02 11:53 | Outpatient (REF) | payer MEDICAID, SELFPAY ==
[2024-04-02 13:18] LABS: MANUAL DIFF FLAG NO
[2024-04-02 13:25] LABS: Basophils Percent Auto 0.4 % (0-2); Eosinophils Percent Auto 0.1 % (0-4); Hematocrit 26.2 % (37.0-47.0); Hemoglobin 7.3 g/dl (12.0-16.0); Imm Gran Abs Auto 0.05 X10*3/uL (0.00-0.03); Imm Gran Pct Auto 0.5 % (0.0-0.4); Lymphocytes Absolute Auto 1.1 X10*3/uL (1.2-4.9); Lymphocytes Percent Auto 11.9 % (20-40); Mean Corpuscular HGB Conc 27.9 g/dl (31.0-35.0); Mean Corpuscular Hemoglobin 18.2 pg (27.0-33.0); Mean Corpuscular Volume 65.2 fL (80.0-98.0); Mean Platelet Volume 9.6 fL (9.4-12.3); Monocytes Absolute Auto 0.9 X10*3/uL (0.1-1.2); Monocytes Percent Auto 8.9 % (2-11); Neutrophils Absolute Auto 7.5 x10*3/uL (2.0-8.3); Neutrophils Percent Auto 78.2 % (45-73); Platelet Count 288 X10*3/uL (160-400); Red Blood Count 4.02 X10*6/uL (4.20-5.50); Red Cell Distribution Width 23.1 % (11.0-16.0); White Blood Count 9.6 X10*3/uL (4.8-10.8)
[2024-04-02 14:11] LABS: Alanine Aminotransferase 10 U/L (0-31); Albumin Level 3.9 g/dL (3.5-5.0); Alkaline Phosphatase 72 U/L (39-117); Anion Gap 13 (12-20); Aspartate Amino Transferase 19 U/L (5-31); Bilirubin Direct 0.3 mg/dL (0.0-0.5); Bilirubin Total 0.8 mg/dL (0.0-1.0); Blood Urea Nitrogen 7 mg/dL (9-16); Calcium 8.9 mg/dL (8.4-10.2); Carbon Dioxide 21 mmol/L (22-29); Chloride 105 mmol/L (96-108); Estimated Glomerular Filt Rate > 60; Glucose Random 97 mg/dL (60-115); Iron 14 mcg/dL (30-160); Percent Iron Saturation 4 % (15-50); Potassium 3.6 mmol/L (3.3-5.1); Sodium 135 mmol/L (135-145); Total Iron Binding Capacity 346 mcg/dL (228-428); Total Protein 7.8 g/dL (6.5-8.0); Unsaturated Iron Binding 332 ug/dL
[2024-04-02 14:17] LABS: Ferritin 29 ng/mL (10-250); TSH reflex Free T4 0.49 uIU/mL (0.32-4.0)
[2024-04-02 14:32] LABS: Folate 14.6 ng/mL (> or = 4.0); Vitamin B12 450 pg/mL (200-900)
== END 2024-04-02 11:54 | disposition home or self-care (01) ==
LOC: HO.HHCL 11:53
PROVIDERS: Visit Provider Family Medicine
DX: D50.9 Iron deficiency anemia, unspecified (principal)
CPT/HCPCS: 36415; 80048; 80076; 82607; 82728; 82746; 83540; 84443; 85025

== ENCOUNTER 2024-04-03 17:49 | Outpatient (REF) | payer MEDICAID, SELFPAY ==
[2024-04-04 11:43] LABS: Adenovirus PCR Not Detected (Not Detect.); Bordetella parapertussis PCR Not Detected (Not Detect.); Bordetella pertussis PCR Not Detected (Not Detect.); Chlamydia pneumoniae PCR Not Detected (Not Detect.); Coronavirus 229E PCR Not Detected (Not Detect.); Coronavirus HKU1 PCR Not Detected (Not Detect.); Coronavirus NL63 PCR Not Detected (Not Detect.); Coronavirus OC43 PCR Not Detected (Not Detect.); Human metapneumovirus PCR Not Detected (Not Detect.); Influenza A PCR Not Detected (Not Detect.); Influenza B PCR Not Detected (Not Detect.); Mycoplasma pneumoniae PCR Not Detected (Not Detect.); Parainfluenza 1 PCR Not Detected (Not Detect.); Parainfluenza 2 PCR Not Detected (Not Detect.); Parainfluenza 3 PCR Not Detected (Not Detect.); Parainfluenza 4 PCR Not Detected (Not Detect.); RSV PCR Not Detected (Not Detect.); Rhino/Enterovirus PCR Not Detected (Not Detect.)
[2024-04-04 12:05] LABS: SARS-CoV-2 PCR Not Detected (Not Detect.)
== END 2024-04-03 17:50 | disposition home or self-care (01) ==
LOC: HO.HHCLNP 17:49
PROVIDERS: Visit Provider Family Medicine
DX: J06.9 Acute upper respiratory infection, unspecified (principal)
CPT/HCPCS: 87633

== ENCOUNTER 2024-05-29 14:17 | Emergency (ER) | payer MEDICAID, SELFPAY ==
[2024-05-29] VITALS (13 sets, daily range): BP systolic 100–120; BP diastolic 51–68; PULSE 70–94; RESP 16–19; TEMP 36.4–37.1; O2SAT 98–100; BMI 32.8
--- NOTE | ~2024-05-29 | US_ITS ---
CLINICAL HISTORY: profuse vaginal bleeding. fibroids ovarian rupture US pelvis transabdominal Comparison: None Findings: Transabdominal scanning performed. Anteverted uterus is 10.4 cm length. Normal myometrium. No endometrial lesion, 13 mm thickness. Right ovary 4.2 x 3.4 x 2.4 cm. Left ovary 3.3 x 2.8 x 2.5 cm. Normal color Doppler of both ovaries. No free fluid. IMPRESSION: 1. Nonspecific endometrial prominence. If patient is postmenopausal, appropriate follow-up if patient has true dysfunctional uterine bleeding, likely in consultation with gynecology. This document has been electronically signed by: Shon Epperson MD on 05/29/2024 20:38:49
--- NOTE | 2024-05-29 14:53 | ECG_ITS ---
Test Reason : SOB Blood Pressure : / mmHG Vent. Rate : 082 BPM Atrial Rate : 082 BPM P-R Int : 126 ms QRS Dur : 086 ms QT Int : 376 ms P-R-T Axes : 054 010 025 degrees QTc Int : 439 ms Normal sinus rhythm Cannot rule out Anterior infarct , age undetermined , probably lead placement Abnormal ECG When compared with ECG of 04-OCT-2022 12:27, No significant change was found Referred By: Mayur Almeida Electronically Signed By:SUNDAY BOUCHER MD
--- NOTE | 2024-05-29 14:54 | ED.GENADULT ---
HPI - General Adult General Chief complaint: General Medical Stated complaint: blood transfusion Time Seen by Provider: 05/29/24 18:02 Source: patient, RN notes reviewed and old records reviewed Mode of arrival: ambulatory Limitations: no limitations History of Present Illness ED Provider: Marli ROBERTS narrative: 48-year-old female with past medical history significant for iron-deficiency anemia related to menstrual flow presents for evaluation of weakness and shortness of breath on exertion. Patient believes that she needs a blood transfusion due to her symptoms as she has experienced these in the past She has no pain. She reports her menstrual cycle has been present for about 4 weeks. She takes iron supplementation but did not do well with iron infusions so no longer does these. She has no other bleeding, denies any rectal bleeding, black or bloody stool She is not on any anticoagulation Related Data Home Medications ?Medication ?Instructions ?Recorded ?Confirmed ferrous sulfate 325 mg (65 mg 325 mg PO DAILY 10/22/20 10/22/20 iron) tablet (Iron (ferrous sulfate)) Previous Rx's ?Medication ?Instructions ?Recorded medroxyprogesterone 10 mg tablet 10 mg PO DAILY #30 tabs 05/29/24 (Provera) Allergies Allergy/AdvReac Type Severity Reaction Status Date / Time No Known Allergies Allergy Verified 05/29/24 14:53 Review of Systems Constitutional: Constitutional: Denies body ache(s), Denies chills, Denies fever(s), Reports lethargy and Reports weakness Eyes: Eyes: Denies blurry vision ENT: Denies vertigo Cardiovascular: Cardiovascular: Denies chest pain and Denies dyspnea Respiratory: Respiratory: Denies cough and Denies dyspnea Gastrointestinal: Gastrointestinal: Denies abdominal pain, Denies nausea and Denies vomiting Genitourinary: Comments: Heavy vaginal bleeding Musculoskeletal: Musculoskeletal: Denies back pain Integumentary/Breasts: Skin/Breast: Denies rash Neurologic: Denies vertigo and Reports weakness PMFSH Past Medical History Medical History Anemia Family History Family History Mother Breast cancer Maternal Aunt Breast cancer Maternal Grandmother Breast cancer Maternal Grandfather Skin cancer Social History Social History Alcohol intake: never Patient Tobacco Use Status: Never used Tobacco Physical Exam ED Vital Signs: Vital Signs - 24 hr 05/29/24 14:48 05/29/24 17:15 05/29/24 17:15 Temperature 98 F Pulse Rate 90 80 88 Respiratory Rate 19 Blood Pressure 100/57 L 104/62 Pulse Oximetry 99 Oxygen Delivery Method Room Air 05/29/24 17:15 05/29/24 17:16 05/29/24 18:06 Temperature 98.1 F 98.1 F Pulse Rate 94 87 73 Respiratory Rate 16 17 Blood Pressure 109/62 103/52 L 120/58 L Pulse Oximetry 100 Oxygen Delivery Method Room Air 05/29/24 18:23 05/29/24 20:13 05/29/24 20:34 Temperature 98.0 F 98.4 F 98.7 F Pulse Rate 78 70 87 Respiratory Rate 16 16 16 Blood Pressure 106/64 110/68 111/64 Pulse Oximetry 100 Oxygen Delivery Method Room Air 05/29/24 20:54 05/29/24 21:10 05/29/24 21:11 Temperature 97.5 F 98.3 F 98.3 F Pulse Rate 93 84 84 Respiratory Rate 16 16 16 Blood Pressure 115/67 101/51 L 101/57 L Pulse Oximetry Oxygen Delivery Method 05/29/24 22:11 05/29/24 23:14 05/29/24 23:17 Temperature 98.5 F 98.3 F 98.3 F Pulse Rate 91 83 83 Respiratory Rate 16 16 16 Blood Pressure 105/57 L 105/61 105/61 Pulse Oximetry 100 98 Oxygen Delivery Method Room Air Room Air BMI result Body Mass Index 32.8 Const General: healthy appearing, comfortable, no acute distress, alert and awake Nutritional Appearance: well nourished Orientation/consciousness: patient oriented x3 HENMT Head: Yes normocephalic and Yes atraumatic Eyes Eyelids: Yes eyelids normal Conjunctivae: conjunctivae normal Sclerae: sclerae normal Corneas: corneas normal Pupils: Equal, round and reactive pupils present EOM: EOMs intact bilaterally Neck Neck: Yes full ROM Resp Effort & Inspection: normal respiratory effort, able to speak in complete sentences and not labored Cardio Rate: regular rate Rhythm: regular rhythm GI Inspection: No distended Palpation (GI): Soft to palpation, not firm, nontender, no guarding and not rigid Skin General skin exam: elasticity normal Neuro General: patient oriented x3 Cranial nerves: Yes Equal, round and reactive pupils present and Yes Bilaterally intact EOM present Cognition (Neuro): normal cognition Extrem Other: Moving all extremities well without any obvious deformities Course Course Course Narrative: RME: 48-year-old female presents to ED for 4 weeks of vaginal bleeding and thinking her blood count is low. Patient has history of anemia and recurrent blood transfusion. Patient feel shortness of breath and fatigue. Patient's skin is pale labs type and screen ordered. 3:22pm: Patient's H&H 6.08/16. Patient to be brought back to the ED immediately. Blood ordered. Blood consent to be obtained by ED staff. Procedures Procedure Narrative Procedure Narrative: I was asked to assist with IV access. I was able to place a 20 gauge 2.75 in peripheral ultrasound in the left upper arm using ultrasound guidance. There was good blood return in the line flushed well postprocedure. There were no complications Medical Decision Making Medical Decision Making MDM Narrative: 48-year-old female presents for evaluation of heavy menstrual flow. She was found to be anemic with a hemoglobin of 6.3 and a hematocrit 22.2. This is a chronic issue, she is not hypotensive or tachycardic. No active bleeding. An ultrasound was ordered to evaluate for a mass versus endometriosis. Differential Diagnosis Differential Diagnoses: The differential diagnosis associated with the presentation includes Dysmenorrhea Menorrhagia Perimenopausal bleeding Dysfunctional uterine bleeding Cervical mass Endometriosis Consult Healthcare Provider Management of the patient was discussed with: Industrial Relations Representative (OBGYN) Discussed with Dr. Horan who recommends close outpatient follow-up for the patient, but she can be started on Provera #30 10 mg daily until she is evaluated by OBGYN for definitive treatment Lab Data [facility] Lab Attestation statement: I reviewed the patient's lab results. No leukocytosis. The patient has significant iron-deficiency anemia with a hemoglobin of 6.3 hematocrit 22.2. MCV of 74.5. These are below the patient's baseline blood counts. Can chemistry abnormalities warranting intervention. The patient is not 05/29/24 15:07 05/29/24 15:07 Labs: Lab Results 05/29/24 05/29/24 05/29/24 Range/Units 15:07 15:35 15:36 WBC 5.4 (4.8-10.8) X10*3/uL RBC 2.98 L D (4.20-5.50) X10*6/uL Hgb 6.3 L* (12.0-16.0) g/dl Hct 22.2 L (37.0-47.0) % MCV 74.5 L (80.0-98.0) fL MCH 21.1 L (27.0-33.0) pg MCHC 28.4 L (31.0-35.0) g/dl RDW 22.5 H (11.0-16.0) % Plt Count 237 (160-400) X10*3/uL MPV 9.6 (9.4-12.3) fL Immature Gran % (Auto) 0.2 (0.0-0.4) % Neut % (Auto) 55.0 (45-73) % Lymph % (Auto) 33.2 (20-40) % [place] % (Auto) 9.6 (2-11) % Eos % (Auto) 1.1 (0-4) % Baso % (Auto) 0.9 (0-2) % Lymph # (Auto) 1.8 (1.2-4.9) X10*3/uL [place] # (Auto) 0.5 (0.1-1.2) X10*3/uL Eos # (Auto) 0.1 (0.0-0.4) X10*3/uL Baso # (Auto) 0.1 (0.0-0.2) X10*3/uL Abs Immat Gran (auto) 0.01 (0.00-0.03) X10*3/uL Absolute Neuts (auto) 3.0 (2.0-8.3) x10*3/uL Absolute Nucleated RBC 0.000 (0.0-0.012) X10*3/uL Nucleated RBC % (auto) 0.0 (0.0-0.2) /100WBC PT 11.4 (10.9-12.4) SEC INR 1.0 (0.9-1.1) APTT 20.7 L (26.0-36.8) SEC Sodium 138 (135-145) mmol/L Potassium 3.9 (3.3-5.1) mmol/L Chloride 109 H (96-108) mmol/L Carbon Dioxide 22 (22-29) mmol/L Anion Gap 11 L (12-20) BUN 9 (9-16) mg/dL Creatinine 0.65 (0.5-1.4) mg/dL Estim Creat Clear Calc 110.9 Estimated GFR > 60 Random Glucose 103 (60-115) mg/dL Calcium 8.8 (8.4-10.2) mg/dL Total Bilirubin 0.3 (0.0-1.0) mg/dL AST 20 (5-31) U/L ALT 10 (0-31) U/L Alkaline Phosphatase 74 (39-117) U/L Troponin I High Sens < 2.7 (<3.5-17.0) ng/L Total Protein 6.9 (6.5-8.0) g/dL Albumin 3.7 (3.5-5.0) g/dL Beta HCG, Quant < 2 mIU/mL Urine Color Yellow Urine Appearance Clear Urine pH 5.0 (5.0-9.0) Ur Specific [place] 1.025 (1.005-1.025) Urine Protein Negative (Neg-Trace) mg/dL Urine Glucose (UA) Negative (Negative) mg/dL Urine Ketones Trace (Negative) mg/dL Urine Blood Moderate (2+) H (Negative) Urine Nitrite Negative (Negative) Ur Leukocyte Esterase Negative (Negative) Urine RBC 11-20 H (0-2) /HPF Urine WBC 0-5 (0-5) /HPF Ur Squamous Epith Cells 0-2 (0-2) /HPF Urine Bacteria None Seen (None Seen) Hyaline Casts 0-2 (0-2) /LPF Blood Type O Positive Antibody Screen NEGATIVE Crossmatch See Detail Radiology Impression Discussion of test interpretation with radiology: I have reviewed the radiologist's reading. Radiologist Impression: Findings: Transabdominal scanning performed. Anteverted uterus is 10.4 cm length. Normal myometrium. No endometrial lesion, 13 mm thickness. Right ovary 4.2 x 3.4 x 2.4 cm. Left ovary 3.3 x 2.8 x 2.5 cm. Normal color Doppler of both ovaries. No free fluid. IMPRESSION: 1. Nonspecific endometrial prominence. If patient is postmenopausal, appropriate follow-up if patient has true dysfunctional uterine bleeding, likely in consultation with gynecology. This document has been electronically signed by: Shon Epperson MD on 05/29/2024 20:38:49 Discharge Plan Discharge Clinical Impression: Iron deficiency anemia Patient Disposition: Home, Self-Care Instructions: Dysfunctional Uterine Bleeding (ED), Anemia (ED) Additional Instructions: You continue to have iron-deficiency anemia likely related to heavy menstrual cycle. You have a thickened endometrium on your ultrasound but no masses seen. It is important that you have very close follow-up with OBGYN. In the meantime, you may take Provera 10 mg daily to help with the dysfunctional uterine bleeding Return for new or worsening symptoms Prescriptions: New medroxyprogesterone [Provera] 10 mg tablet 10 mg PO DAILY Qty: 30 0RF No Action ferrous sulfate [Iron (ferrous sulfate)] 325 mg (65 mg iron) Tablet 325 mg PO DAILY Interventions: ED Discharge Assessment Last Done: 05/29/24 23:17 Discharge Date/Time: 05/30/24 00:22 Print Language: Slovenian
[2024-05-29 15:15] LABS: MANUAL DIFF FLAG NO
[2024-05-29 15:17] LABS: Basophils Absolute Auto 0.1 X10*3/uL (0.0-0.2); Basophils Percent Auto 0.9 % (0-2); Eosinophils Absolute Auto 0.1 X10*3/uL (0.0-0.4); Eosinophils Percent Auto 1.1 % (0-4); Hematocrit 22.2 % (37.0-47.0); Imm Gran Abs Auto 0.01 X10*3/uL (0.00-0.03); Imm Gran Pct Auto 0.2 % (0.0-0.4); Lymphocytes Absolute Auto 1.8 X10*3/uL (1.2-4.9); Lymphocytes Percent Auto 33.2 % (20-40); Mean Corpuscular HGB Conc 28.4 g/dl (31.0-35.0); Mean Corpuscular Hemoglobin 21.1 pg (27.0-33.0); Mean Corpuscular Volume 74.5 fL (80.0-98.0); Mean Platelet Volume 9.6 fL (9.4-12.3); Monocytes Absolute Auto 0.5 X10*3/uL (0.1-1.2); Monocytes Percent Auto 9.6 % (2-11); Platelet Count 237 X10*3/uL (160-400); Red Blood Count 2.98 X10*6/uL (4.20-5.50); Red Cell Distribution Width 22.5 % (11.0-16.0); White Blood Count 5.4 X10*3/uL (4.8-10.8)
[2024-05-29 15:18] LABS: Hemoglobin 6.3 g/dl (12.0-16.0)
[2024-05-29 15:33] LABS: Alanine Aminotransferase 10 U/L (0-31); Albumin Level 3.7 g/dL (3.5-5.0); Anion Gap 11 (12-20); Aspartate Amino Transferase 20 U/L (5-31); Bilirubin Total 0.3 mg/dL (0.0-1.0); Blood Urea Nitrogen 9 mg/dL (9-16); Calcium 8.8 mg/dL (8.4-10.2); Carbon Dioxide 22 mmol/L (22-29); Chloride 109 mmol/L (96-108); Creatinine Clr Calc Pharmacy 110.9; Estimated Glomerular Filt Rate > 60; Glucose Random 103 mg/dL (60-115); Potassium 3.9 mmol/L (3.3-5.1); Sodium 138 mmol/L (135-145); Total Protein 6.9 g/dL (6.5-8.0)
[2024-05-29 15:36] LABS: Prothrombin Time 11.4 SEC (10.9-12.4)
[2024-05-29 15:40] LABS: HCG Quantitative < 2 mIU/mL; Partial Thromboplastin Time 20.7 SEC (26.0-36.8); Troponin-I High Sensitivity < 2.7 ng/L (<3.5-17.0)
[2024-05-29 15:46] LABS: Appearance Urine Clear; Color Urine Yellow; Glucose Urine UA Negative (Negative); Leukocyte Esterase Urine Negative (Negative); Nitrite Urine Negative (Negative); Specific Gravity - Urine 1.025 (1.005-1.025); UMIC TRIGGER UACC YES; Urine Blood Moderate (2+) (Negative); Urine Ketones Trace mg/dL (Negative); Urine Protein Negative (Neg-Trace)
[2024-05-29 15:49] LABS: Bacteria Urine None Seen (None Seen); Hyaline Casts Urine 0-2 /LPF (0-2); Squamous Epithelial Cell Urine 0-2 /HPF (0-2); WBC Urine 0-5 /HPF (0-5)
[2024-05-29 15:50] LABS: Alkaline Phosphatase 74 U/L (39-117)
--- NOTE | 2024-05-29 19:10 | PC.NURSE ---
Sepsis alert cancelled by CARIDAD Hernandez. No sepsis fluids/abx ordered.
--- NOTE | 2024-05-29 19:28 | P.CONOB_ITS ---
AND [employer] TROLLEY - CN: HPI Data of Consult Consult date: 05/29/24 Primary Care Provider: Leesa Mcintosh MD Consult Narrative Narrative: I was consulted on Tana Barriga who is a 48 year old female with history of heavy menstrual cycles, chronic anemia, presented emergency room with weakness and exertional dyspnea, no pelvic pain or any other symptoms, no history of heavy vaginal bleeding currently. The patient has been on menstrual cycle for the last 4 weeks Patient believes that she needs a blood transfusion due to her symptoms as she has experienced these in the past and has received blood transfusions in the past. Last mammogram was in 11/18 BI-RADS 1 No recent pelvic ultrasound and no co testing results available cc:: CC: OB [facility] Past Medical History Medical History Anemia Family History Family History Mother Breast cancer Maternal Aunt Breast cancer Maternal Grandmother Breast cancer Maternal Grandfather Skin cancer Social History Social History Alcohol intake: never Patient Tobacco Use Status: Never used Tobacco Smoked in Last 30 Days: No Use of substances other than those prescribed or required for medical reasons: No Advance Directives: No Advance Directives Information Provided: No Do you have a plan to hurt others: No Plan Patient : No Meds Allergies Allergy/AdvReac Type Severity Reaction Status Date / Time No Known Allergies Allergy Verified 05/29/24 14:53 Home Medications ?Medication ?Instructions ?Recorded ?Confirmed ?Last Taken ?Type ferrous sulfate 325 mg (65 mg 325 mg PO DAILY 10/22/20 10/22/20 Unknown History iron) tablet (Iron (ferrous sulfate)) AND [employer] Physical Exam Vitals Vital signs: Temp Pulse Resp BP Pulse Ox O2 Del Method 98.0 F 78 16 106/64 100 Room Air 05/29/24 18:23 05/29/24 18:23 05/29/24 18:23 05/29/24 18:23 05/29/24 17:16 05/29/24 17:16 BMI result Body Mass Index 32.8 Additional Comments: Reported by Tavo obrien: No evidence of active vaginal bleeding AND [employer] - Results Labs 05/29/24 15:07 05/29/24 15:07 Labs: Short CBC 05/29/24 Range/Units 15:07 WBC 5.4 (4.8-10.8) X10*3/uL Hgb 6.3 L* (12.0-16.0) g/dl Hct 22.2 L (37.0-47.0) % Plt Count 237 (160-400) X10*3/uL BMP 05/29/24 15:07 Sodium 138 Potassium 3.9 Chloride 109 H Carbon Dioxide 22 BUN 9 Creatinine 0.65 Calcium 8.8 Liver Function 05/29/24 Range/Units 15:07 Total Bilirubin 0.3 (0.0-1.0) mg/dL AST 20 (5-31) U/L ALT 10 (0-31) U/L Alkaline Phosphatase 74 (39-117) U/L Albumin 3.7 (3.5-5.0) g/dL Urine 05/29/24 Range/Units 15:36 Urine Color Yellow Urine Appearance Clear Urine pH 5.0 (5.0-9.0) Ur Specific [place] 1.025 (1.005-1.025) Urine Protein Negative (Neg-Trace) mg/dL Urine Glucose (UA) Negative (Negative) mg/dL Antibody Screen Antibody Screen NEGATIVE 05/29/24 15:35 Assessment and Plan (1) Iron deficiency anemia: Status: Acute Transfuse 2 units of packed RBCs, assess the patient for hemodynamic stability and lack of evidence of active vaginal bleeding prior to discharge Iron sulfate 325 mg p.o. t.i.d. Close follow-up with the patient'is OBGYN and PCP (2) Abnormal uterine bleeding (AUB): Status: Acute Recommended to Tavo obrien the following: Pelvic ultrasound, GC/CT, Provera 10 mg p.o. q.d. #30, close follow-up with the patient is OBGYN [place] The patient needs outpatient co testing, TSH, endometrial sampling to rule out endometrial pathology including endometrial hyperplasia and/or malignancy Depending on the ultrasound finding, other options of treatment include but not limited to: Levo norgestrel IUD, endometrial ablation, hysterectomy. The patient is to come back to the emergency in case of persistence or recurrence heavy vaginal bleeding I spent a total of 20 minutes reviewing the chart, communicating with the emergency room provider and documenting in the medical record.
--- NOTE | 2024-05-29 19:50 | PC.NURSE ---
Took over care from RN Althea pt having bedside ultra sound.
--- NOTE | 2024-05-29 21:12 | PC.NURSE ---
pt oob to bathroom with a steady gait, denies any dizziness or lightheadedness, second unit of blood started, provider into discuss plan of care
--- NOTE | 2024-05-29 23:16 | PC.NURSE ---
pt completed second unit of RBC, pt tolerated well, no sign of distress, pt oob to bathroom with a steady gait, reviewed discharge instructions with pt. pt verbalized understanding.
== END 2024-05-30 00:22 | disposition home or self-care (01) ==
PROVIDERS: Physician Assistant; Emergency Provider Emergency Medicine; PCP Family Medicine
DX: D50.9 Iron deficiency anemia, unspecified (principal); N93.9 Abnormal uterine and vaginal bleeding, unspecified; R06.02 Shortness of breath; R94.31 Abnormal electrocardiogram [ECG] [EKG]; R10.2 Pelvic and perineal pain; Z79.899 Other long term (current) drug therapy
CPT/HCPCS: 36415; 36430; 76856; 80053; 81001; 84484; 84702; 85025; 85610; 85730; 86850; 86900; 86901; 86923; 93005; 99285; P9016

== ENCOUNTER → 2024-05-29 14:53 | Outpatient (BNV) | payer MEDICAID, SELFPAY | PROVIDERS: PCP Family Medicine; Visit Provider Internal Medicine Cardiovascular Disease | DX: R94.31 Abnormal electrocardiogram [ECG] [EKG] (principal) | CPT/HCPCS: 93010 ==

== ENCOUNTER → 2024-05-29 15:10 | Outpatient (BNV) | payer MEDICAID, SELFPAY | PROVIDERS: Emergency Provider Emergency Medicine; PCP Family Medicine; Visit Provider Obstetrics & Gynecology | DX: D50.9 Iron deficiency anemia, unspecified (principal); N93.9 Abnormal uterine and vaginal bleeding, unspecified | CPT/HCPCS: 99283 ==

== ENCOUNTER 2024-07-02 20:08 | Emergency (ER) | payer MEDICAID, SELFPAY ==
--- NOTE | ~2024-07-02 | XR_ITS ---
CLINICAL HISTORY: cough, weakness 2 view chest x-ray Comparison: Chest x-ray from 01/06/2016 Findings: Mild opacities partly obscure right heart border. No lobar consolidation. Mild emphysematous changes. No pneumothorax or pleural effusion. Imaged mediastinum and osseous structures appear unchanged. IMPRESSION: Mild atelectasis and/or pneumonitis of the right heart border.. This document has been electronically signed by: Jaylan Delgadillo MD on 07/02/2024 21:07:52
[2024-07-02 20:21] VITALS: BP 114/76; PULSE 80; O2SAT 100
[2024-07-02 20:28] VITALS: BP 117/93; PULSE 85; RESP 16; TEMP 36.9; O2SAT 100; BMI 33.3
--- OUTSIDE RECORDS SUMMARY | 2024-07-02 21:03 | XMS_ITS | Encounter Summary ---
Author Organization [employer] Address [address] [place] [address] Care Team Providers Care Shadowgraph Scale Operator Name Role Phone Leesa Mcintosh MD Primary Care Provider [phone] Patricio Rosen MD Unavailable [phone] Oniel Palacios MD Unavailable [phone] Encounter Details Date Type Department Care Team (Late st Contact Info) Description 05/05/2022 Abstract [facility] [address] [place] [address] Provider, MD Steven Social History Tobacco Use Types Packs/Day Years Used Date Smoking Tobacco: Never Smokeless Tobacco: Never Alcohol Use Standard Drinks/Week Comments Never 0 (1 standard drink = 0.6 oz pur e alcohol) Comments Unknown Sex and Gender Information Value Date Recorded Sex Assigned at Female 03/27/2022 10:20 AM EDT Legal Sex Female 10:20 AM EDT Gender Identity Female 03/27/2022 10:20 AM EDT Sexual Orientation Straight 03/27/2022 10 :20 AM EDT COVID-19 Exposure Response Date Recorded In the last 10 days, have yo u been in contact with someone who was confirmed or suspected to have Coronavirus/COVID-19? No / Unsure 05/05/2022 1:00 PM EST documented as of this encounter Plan of Treatment Not on file documented as of this encounter Procedures Procedure Name Priority Date/Time Associated Diagnosis Comments MAMMOGRAPHY Routine 04/20/2020 documented in this encounter Results * Mammography (04/20/2020) Mammogram normal Anatomical Region Laterality Modality Other us Historical Provider HEALTH MAINTENANCE Final Result documented in this encounter Visit Diagnoses Not on filedocumented in this encounter Care Teams Shadowgraph Scale Operator Relationship Specialty Start Date End Date Leesa Mcintosh MD [address] [place] [address] PCP - General Family Medicine 06/04/17 Patricio Rosen MD [address] [place] [id number] Hematology and Oncology 05/14/24 Oniel Palacios MD [address] [place] [address] [address] [place] [address] Gastroenterology 05/14/24 documented as of this encounter
--- OUTSIDE RECORDS SUMMARY | 2024-07-02 21:03 | XMS_ITS | Encounter Summary ---
Author Organization [employer] Address [address] [facility] [address] [place] [address] Care Team Providers Care Pharmaceutical Compounding Supervisor Name Role Phone Leesa Mcintosh MD Primary Care Provider [phone] Patricio Rosen MD Unavailable [phone] Oniel Palacios MD Unavailable [phone] Encounter Details Date Type Department Care Team (Late st Contact Info) Description 04/25/2023 Orders Only [facility] MEDICINE [address], [place] [phone] Leesa Mcintosh MD [address], [place] [phone] Iron deficiency anemia, unspecified iron deficiency anemia type (Primary Dx) Social History Tobacco Use Types Packs/Day Years [...] Orientation Straight 03/27/2022 10 :20 AM EDT documented as of this encounter Plan of Treatment Not on file documented as of this encounter Procedures Procedure Name Priority Date/Time Associated Diagnosis Comments TSH W/REFLEX TO FT4 Routine 04/25/2023 5 :09 PM EST Iron deficiency anemia, unspecified iron deficiency anemia type CBC WITH AUTO DIFFERENTIAL Routine 04/25/2023 5:09 PM EST Iron deficiency anemia, unspecified iron deficiency anemia type IRON AND TOTAL IRON BINDING CAPACITY Routine 04/25/2023 5:09 PM EST Iron deficiency anemia, unspecified iron deficiency anemia type FOLATE, SERUM Routine 04/25/2023 5:09 PM EST Iron deficiency anemia, unspecified iron deficiency anemia type FERRITIN Routine 04/25/2023 5:09 PM EST Iron deficiency anemia, unspecified iron deficiency anemia type VITAMIN B12 Routine 04/25/2023 5:09 PM EST Iron deficiency anemia, unspecified iron deficiency anemia type documented in this encounter Results * Folate, Serum (04/25/2023 5:09 PM EST) Folate 15.0 > or = 4.0 ng/mL [facility] Comment:Reference Values:> o r = 4.0 ng/mL< 4.0 ng/mL suggests folate deficiency Methotrexate, aminopterin and folinic acid(leucovorin) are chemotherapeutic agents whose molecularstructures are similar to folate; therefore, the Architectfolate assay cannot be used for patients using these drugs. Blood Venous blood specimen / Unknown 04/25/2023 5:09 PM EST 04/25/2023 5:28 PM EST Leesa Mcintosh MD LAB BLOOD ORDERABLES Final Result [facility] [address] [place] [address] [phone] * Vitamin B12 (04/25/2023 5:09 PM EST) Vitamin B12 484 200 - 900 pg/mL [facility] Comment:NORMAL 200-900 PG/ML INDETERMINATE 160-199 PG/ML DEFICIENT < 160 PG/ML Blood Venous blood specimen / Unknown 04/25/2023 5:09 PM EST 04/25/2023 5:28 PM EST Leesa Mcintosh MD LAB BLOOD ORDERABLES Final Result Performing Organization Address [facility] de Phone Number [facility] [address] [place] [phone] * TSH W/Reflex to FT4 (04/25/2023 5:09 PM EST) Pathologist [facility] TSH reflex Free T4 0.66 0.32 - 4.0 uIU/mL [facility] Blood 04/25/2023 5:09 PM EST 04/25/2023 5:28 PM EST Leesa Mcintosh MD LAB BLOOD ORDERABLES Final Result Performing Organization Address [facility] Phone Number [facility] [address] [place] [phone] * (ABNORMAL) Iron And Total Iron Binding Capacity (04/25/2023 5:09 PM EST) [facility] Iron 15(L) 30 - 160 mcg/dL [facility] Total Iron Binding Capacity 416 228 - 428 mcg/dL [facility] Percent Iron Saturation 4(L) 15 - 50 % [facility] Unsaturated Iron Binding 401 ug/dL [facility] Blood Venous blood specimen / Unknown 04/25/2023 5:09 PM EST 04/25/2023 5:28 PM EST Leesa Mcintosh MD LAB BLOOD ORDERABLES Final Result Performing Organization Address [facility] [[email or web address]] Co de Phone Number [facility] [address] [place] [phone] * (ABNORMAL) CBC auto differential (04/25/2023 5:09 PM EST) Pathologist [facility] White Blood Count 4.6(L) 4.8 - 10.8 X10*3/uL [facility] Red Blood Count 3.63(L) 4.20 - 5.50 X10*6/uL [facility] Hemoglobin 5.8(LL) 12.0 - 16.0 g/dl [facility] Comment:Results of HGB valenzuela d to and read back by ASHLEY Coffmanon 04/25/23 at 1808 by NIK. Hematocrit 23.0(L) 37.0 - 47.0 % [facility] Mean Corpuscular Volume 63.4(L) 80.0 - 98.0 fL [facility] Mean Corpuscular Hemoglobin 16.0(L) 27.0 - 33.0 pg [facility] Mean Corpuscular HGB Conc 25.2(L) 31.0 - 35.0 g/dl [facility] Red Cell Distribution Width 19.3(H) 11.0 - 16.0 % [facility] Platelet Count 325 160 - 400 X10*3/uL [facility] Mean Platelet Volume 9.2(L) 9.4 - 12.3 fL [facility] Neutrophils Percent Auto 50.6 45 - 73 % [facility] Imm Gran Pct Auto 0.4 0.0 - 0.4 % [facility] Lymphocytes Percent Auto 33.3 20 - 40 % [facility] Monocytes Percent Auto 13.7(H) 2 - 11 % [facility] Eosinophils Percent Auto 1.1 0 - 4 % [facility] Basophils Percent Auto 0.9 0 - 2 % [facility] NRBC Pct Auto 0.0 0.0 - 0.2 /100WBC [facility] Neutrophils Absolute Auto 2.3 2.0 - 8.3 x10*3/uL [facility] Imm Gran Abs Auto 0.02 0.00 - 0.03 X10*3/uL [facility] Lymphocytes Absolute Auto 1.5 1.2 - 4.9 X10*3/uL [facility] Monocytes Absolute Auto 0.6 0.1 - 1.2 X10*3/uL [facility] Eosinophils Absolute Auto 0.1 0.0 - 0.4 X10*3/uL [facility] Basophils Absolute Auto 0.0 0.0 - 0.2 X10*3/uL [facility] NRBC Abs Auto 0.000 0.0 - 0.012 X10*3/uL [facility] Blood Venous blood specimen / Unknown 04/25/2023 5:09 PM EST 04/25/2023 5:28 PM EST Leesa Mcintosh MD LAB BLOOD ORDERABLES Final Result Performing Organization Address City/[facility]/ZIP Co de Phone Number [facility] [address] [place] [phone] * (ABNORMAL) Ferritin (04/25/2023 5:09 PM EST) Ferritin <2(L) 10 - 250 ng/mL [facility] Blood Venous blood specimen / Unknown 04/25/2023 5:09 PM EST 04/25/2023 5:28 PM EST Leesa Mcintosh MD LAB BLOOD ORDERABLES Final Result Performing Organization Address City/[facility]/ZIP Co de Phone Number [facility] [address] [place] [phone] documented in this encounter Visit Diagnoses Diagnosis Iron deficiency anemia, unspecified iron deficiency anemia type- Primary documented in this encounter Care Teams Pharmaceutical Compounding Supervisor Relationship Specialty Start Date End Date Leesa Mcintosh MD [address] [place] [phone] PCP - General Family Medicine 06/04/17 Patricio Rosen MD [address] [place] [phone] Hematology and Oncology 05/14/24 Oniel Palacios MD [address] [place] [address] Gastroenterology 05/14/24 documented as of this encounter
--- OUTSIDE RECORDS SUMMARY | 2024-07-02 21:03 | XMS_ITS | Encounter Summary ---
Author Organization [employer] [facility] Address [address] [address] Care Team Providers Care Pencil Maker Name Role Phone Leesa Mcintosh MD Primary Care Provider [phone] Patricio Rosen MD Unavailable [phone] Oniel Palacios MD Unavailable [phone] Reason for Referral * Consultation (Routine) - Closed Specialty Diagnoses / Procedures Referred By Contac t Referred To Contact Obstetrics and Gynecology Diagnoses Iron deficiency anemia, unspecified iron deficiency anemia type Leesa Mcintosh MD [address] [place] [address] Phone: tel: fax: [address] Phone: tel: fax: Referral ID Status Reason Start Date Expiration Date V isits Requested Visits Authorized [id number] Closed Specialty Services Required 03/13/2024 03/13/2025 9 9 Encounter Details Date Type Department Care Team (Late st Contact Info) Description 03/13/2024 Orders Only [facility] MEDICINE [address] [place], [place] [phone] Leesa Mcintosh MD [address], [place] [phone] Iron deficiency anemia, unspecified iron deficiency anemia type (Primary Dx) Social History Tobacco Use Types Packs/Day Years Used Date Smoking Tobacco: Never Smokeless Tobacco: Never Alcohol Use Standard Drinks/Week Comments Never 0 (1 standard drink = 0.6 oz pur e alcohol) Depression Answer Date Recorded Patient Health Questionnaire-9 Score 0 03/13/2024 Patient Health Questionnaire-9 Score 0 03/13/2024 Last PHQ-9: Questionnaire Data Not on file 1 Housing Stability Answer Date Recorded What is your housing situation today? I have whit lanza 03/13/[address] you li ve. Do you have problems with any of the following? None of the above 03/13/2024 Food Insecurity Answer Date Recorded Within the past 12 months, y ou worried that your food would run out before you got money to buy more: Never True 03/13/2024 Within the past 12 months,th e food you bought just didn't last and you didn't have enough money to get more: Never True Transportation Answer Date Recorded In the past 12 months, has l ack of transportation kept you from medical appts, meetings, work or from getting things needed for daily living? No 03/13/2024 Utilities Answer Date Recorded In the past 12 months, has t he electric, gas, oil or water company threatened to shut off services in your home? No 03/13/2024 Depression Answer Date Recorded Patient Health Questionnaire-2 Score 0 03/13/2024 Internet Access Answer Date Recorded Internet Access Q1 Yes 03/13/2024 Internet Access Q2 Not on file 03/13/2024 Comments Unknown Sex and Gender Information Value Date Recorded Sex Assigned at Female 03/27/2022 10:20 AM EDT Legal Sex Female 10:20 AM EDT Gender Identity Female 03/27/2022 10:20 AM EDT Sexual Orientation Straight 03/27/2022 10 :20 AM EDT documented as of this encounter Plan of Treatment Scheduled Referrals Name Type Priority Associated Diagnoses Orde r Schedule Referral to Obstetrics / Gynecology Outpatient Referral Routine Iron deficiency anemia, unspecified iron deficiency anemia type Expected: 03/13/2024 (Approximate), Expires: 03/13/2025 documented as of this encounter Visit Diagnoses Diagnosis Iron deficiency anemia, unspecified iron deficiency anemia type- Primary documented in this encounter Additional Health Concerns Assessment Noted Time PHQ-9 Depression Total Score: 0 03/13/20 11:01 AM EDT documented as of this encounter Care Teams Pencil Maker Relationship Specialty Start Date End Date Leesa Mcintosh MD [address] [place] [address] PCP - General Family Medicine 06/04/17 Patricio Rosen MD [address] [place] [phone] Hematology and Oncology 05/14/24 Oniel Palacios MD [address]rd [place] [address] Gastroenterology 05/14/24 documented as of this encounter
--- OUTSIDE RECORDS SUMMARY | 2024-07-02 21:03 | XMS_ITS | Clinical Summary ---
Author Organization [employer] Address [address] [facility] [address] [place] [address] Care Team Providers Care Biomedical Photographer Name Role Phone Leesa Mcintosh MD Primary Care Provider [phone] Patricio Rosen MD Unavailable [phone] Oniel Palacios MD Unavailable [phone] Allergies No known active allergies Medications norgestimate-et hinyl estradiol (Ortho-Cyclen) 0.25-35 MG-MCG tabletIndicatio ns:Heavy Menstrual Bleeding,Therap eutic Amenorrhea,plea se allow pt to leaf size picker every 2 months as she is taking continuous active pill Take 1 tablet by mouth in the morning. 84 tablet 11 2 04/19/20 25 Active carbamide peroxide (Debrox) 6.5 % otic solutionIndicat ions:Impacted cerumen of right ear Administer 5 drops into the right ear 2 times daily. 15 mL 4 Active Active Problems Problem Noted Date Diagnosed Date Cervical cancer screening 04/03/2024 Overview (04/03/2024): -pap scheduled Apr 2024 History of cardiac murmur 12/17/2023 Overview (12/17/2023): -echo 12/17/23 - The left ventricular systolic function is normal. The calculated ejection fraction is 68% by biplane method. - No obvious valvular pathology seen on this study. Colon cancer screening 07/05/2023 Overview (04/03/2024): -referral placed to Dr. Palacios 04/16/2023 -GI scheduled for Jun 2024 Excessive and frequent menstruation 04/05/2023 04/05/2023 Overview (05/30/2024): -US 05/29/23 in ER 1. Nonspecific endometrial prominence. If patient is postmenopausal, appropriate follow-up if patient has true dysfunctional uterine bleeding,likely in consultation with gynecology. Fibroid uterus 04/05/2023 04/05/2023 Iron deficiency anemia 04/05/2023 Overview (05/15/2024): Lab Results Component Value Date FERRITIN 29 04/02/2024 FERRITIN <2 (L) 04/25/2023 HGB 7.3 (L) 04/02/2024 HGB 7.1 (L) 12/04/2023 HGB 5.4 (L) 02/03/2022 HGB 8.7 (L) 12/17/2020 HEMATOCRIT 21.9 (L) 02/03/2022 HEMATOCRIT 30.1 (L) 12/17/2020 Multiparous female with severe iron deficient anemia thought to be due to abnormal uterine bleeding who has not followed up with conference manager or hematology in the past year due to the pandemic. Multiple transfusions in past with Hgb of 5.8. Seen by [facility] Applier and hematology. Referral to GI 04/16/23 -agrees to call hematology and Lute Packer [facility] Applier 03/2023, referred again 01/17/24 -rereferred to CORPORATE COORDINATOR 03/13/24 Other specified health status 04/05/2023 Overview (04/05/2023): -next physical exam due after -eye care facilitated by -dental home is Herniation of intervertebral disc between L5 and S1 10/10/2022 Assessment & Plan (10/10/2022 8:37 AM EDT): ?? Acute low back pain associated with LLE numbness/weakness evaluated in [facility] ED 10/06/22 ?? Explained pathophysiology of condition, answered all questions ?? Denies hx of chronic back pain, known injury ?? No red flag symptoms ?? Strict ED precautions reviewed ?? Referral to [facility] and PT for further eval and tx. Pt in agreement with plan ?? 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 Reschedule with Hematology, Dr Dejesus Continue iron supplements Start continuous OCPs for menstrual suppression Encounters Date Type Department Care Team Description 05/29/2024 Orders Only [facility] [address] [place] [phone] Leesa Mcintosh MD Iron deficiency anemia, unspecified iron deficiency anemia type (Primary Dx); Excessive and frequent menstruation 05/29/2024 Telephone [facility] [address] [place] [phone] Leesa Mcintosh MD Nurse Triage 05/16/[address] [address] Leesa Mcintosh MD No Show 04/08/[address] [address] Leesa Mcintosh MD 04/03/2024 1:00 PM EST Office Visit [facility] [address] [place] [phone] Leesa Mcintosh MD Acute URI (Primary Dx); Dietary counseling; Exercise counseling; Impacted cerumen of right ear; Colon cancer screening; Cervical cancer screening; Iron deficiency anemia, unspecified iron deficiency anemia type 04/02/2024 Travel 04/02/2024 Orders Only [facility] [address] [place] [phone] Leesa Mcintosh MD Iron deficiency anemia, unspecified iron deficiency anemia type (Primary Dx) from Last 3 Months Immunizations Name Administration Dates Next Due Hep B, adult 03/13/2024 Influenza, Split (incl. purified surface antigen ) 06/04/2012 Tdap 03/13/2024 Family History Medical History Relation Name Comments Anemia Daughter Autism Son Relation Name Status Comments Daughter Son Social History Tobacco Use Types Packs/Day Years Used Date Smoking Tobacco: Never Smokeless Tobacco: Never Tobacco Cessation:Counseling Given: Not Answered Alcohol Use Standard Drinks/Week Comments Never 0 [...] Orientation Straight 03/27/2022 10 :20 AM EDT Last Filed Vital Signs Vital Sign Reading Time Taken Comments Blood Pressure 124/82 04/03/2024 1:06 PM EST Pulse 84 04/03/2024 1:06 PM EST Temperature 36.7 ??C (98.1 ??F) 04/03/2024 1:06 PM ES T Respiratory Rate 16 04/03/2024 1:06 PM EST Oxygen Saturation 99% 04/03/2024 1:06 PM EST Inhaled Oxygen Concentration - - Weight 83.6 kg (184 lb 3.2 oz) 04/03/2024 1:06 P M EST Height 160 cm (5' 3 ) 03/13/2024 10:54 AM EDT Body Mass Index 32.63 03/13/2024 10:54 AM EDT Plan of Treatment Health Maintenance Due Date Last Done Comments CT Colonography 1975 Colonoscopy 1977 FIT DNA/Cologuard 1977 FIT 1977 Sigmoidoscopy 1977 Alcohol/Substance Use Screening 1989 Family Planning (PISQ) 1992 Pap Smear 1998 Colorectal Cancer Screening 04/28/2020 FOBT 04/28/2020 04/28/2019 Cervical Cancer Screening 02/01/2023 HPV/Cotest 02/01/2023 02/01/2018 COVID-19 Vaccine ( season) 2024 05/05/2021, 09/18/2020, 08/21/2020 Influenza Vaccine (#1) 2024 06/04/2012 Hepatitis B Vaccines (2 of 3 - 19+ 3-dose series) 04/10/2024 03/13/2024 Depression Screening 03/13/2025 03/13/2024, 03/13/20 24 SDOH Screening 03/13/2025 03/13/2024 Tobacco Screening 04/03/2025 04/03/2024 Mammogram 11/20/2025 11/21/2023, 03/29, 04/20/2020, Additional history exists Zoster Vaccines (1 of 2) 10/31/2027 DTaP/Tdap/Td Vaccines (2 - Td or Tdap) 03/13/2034 03/13/2024 RSV Patients and Patients Aged 60 years or older (1 - 1-dose 75+ series) 2052 HIV Screening Completed 04/25/2023 Hepatitis C Screening Completed 04/25/2023 HIB Vaccines Aged Out No longer eligi ble based on patient's age to complete this topic HPV Vaccines Aged Out No longer eligi ble based on patient's age to complete this topic Hepatitis A Vaccines Aged Out No long er eligible based on patient's age to complete this topic IPV Vaccines Aged Out No longer eligi ble based on patient's age to complete this topic Meningococcal Vaccine Aged Out No luann [place] eligible based on patient's age to complete this topic Pneumococcal Vaccine: Pediatrics (0 to 5 Years) and At-Risk Patients (6 to 49) Years) Aged Out No longer eligible based on patient's age to complete this topic RSV under 20 months Aged Out No longe r eligible based on patient's age to complete this topic Rotavirus Vaccines Aged Out No longer eligible based on patient's age to complete this topic Procedures Procedure Name Priority Date/Time Associated Diagnosis Comments US PELVIS COMPLETE Routine 05/29/2024 8: 38 PM EST URINALYSIS, COMPLETE, WITH REFLEX TO CULTURE Routine 05/29/2024 3:36 PM EST Iron deficiency anemia, unspecified iron deficiency anemia type RED BLOOD COUNT Routine 05/29/2024 3:35 PM EST Iron deficiency anemia, unspecified iron deficiency anemia type TYPE AND SCREEN Routine 05/29/2024 3:35 PM EST Iron deficiency anemia, unspecified iron deficiency anemia type HIGH SENSITIVITY TROPONIN I Routine 05/29/2024 3:07 PM EST Iron deficiency anemia, unspecified iron deficiency anemia type HCG, TOTAL, QN Routine 05/29/2024 3:07 PM EST Iron deficiency anemia, unspecified iron deficiency anemia type APTT Routine 05/29/2024 3:07 PM EST Iron deficiency anemia, unspecified iron deficiency anemia type PROTHROMBIN TIME-INR Routine 05/29/2024 3:07 PM EST Iron deficiency anemia, unspecified iron deficiency anemia type COMPREHENSIVE METABOLIC PANEL Routine 05/29/2024 3:07 PM EST Iron deficiency anemia, unspecified iron deficiency anemia type CBC WITH AUTO DIFFERENTIAL Routine 05/29/2024 3:07 PM EST Iron deficiency anemia, unspecified iron deficiency anemia type RESPIRATORY VIRAL PANEL PCR Routine 04/03/2024 12:00 AM EST Acute URI HEPATIC FUNCTION PANEL Routine 11:55 AM EST Iron deficiency anemia, unspecified iron deficiency anemia type BASIC METABOLIC PANEL Routine 04/02/2024 11:55 AM EST Iron deficiency anemia, unspecified iron deficiency anemia type IRON AND TOTAL IRON BINDING CAPACITY Routine 04/02/2024 11:55 AM EST Iron deficiency anemia, unspecified iron deficiency anemia type FERRITIN Routine 04/02/2024 11:55 AM EST Iron deficiency anemia, unspecified iron deficiency anemia type FOLATE, SERUM Routine 04/02/2024 11:55 AM EST Iron deficiency anemia, unspecified iron deficiency anemia type VITAMIN B12 Routine 04/02/2024 11:55 AM EST Iron deficiency anemia, unspecified iron deficiency anemia type TSH W/REFLEX TO FT4 Routine 04/02/2024 1 1:55 AM EST Iron deficiency anemia, unspecified iron deficiency anemia type CBC WITH AUTO DIFFERENTIAL Routine 04/02/2024 11:55 AM EST Iron deficiency anemia, unspecified iron deficiency anemia type BI MAMMOGRAM SCREENING TOMOSYNTHESIS BILATERAL Routine 11/21/2023 11:20 AM EDT HEPATITIS C AB W/REFL TO HCV RNA, QN, PCR Routine 04/25/2023 5:09 PM EST Routine screening for STI (sexually transmitted infection) HIV 1/2 ANTIGEN/ANTIBODY, FOURTH GENERATION W/RFL Routine 04/25/2023 5:09 PM EST Routine screening for STI (sexually transmitted infection) OCCULT BLOOD, FECAL, IMMUNOASSAY Routine 04/28/2019 7:02 PM EST JUSTEN HISTORICAL HPV E6/E7 RFLX RUFUS 16 18/45 Routine 02/01/2018 9:10 AM EDT from Last 3 Months or Most Recently Relevant to Health Maintenance Results * Us Pelvis complete (05/29/2024 8:38 PM EST) Anatomical Region Laterality Modality Pelvis Ultrasound 05/29/2024 8:38 PM EST Narrative 05/29/2024 8:41 PM EST ? [facility] ?[address] ?[place] [address] ? Ultrasound Report ? Signed ? Patient: Linus,Tana ?MR#: [id number] ?? [id number] ? : 1975 ?Acct:[id number] ? Age/Sex: 48 / F ?ADM Date: 05/29/24 ? Loc: HO.ED ? Attending Dr: ? Ordering Physician: Mayur Almeida ?? Date of Service: 05/29/24 ?? Procedure(s): US pelvic complete ?? Accession Number(s): [id number] ? cc: Mayur Almeida; Leesa Mcintosh MD ? CLINICAL HISTORY: profuse vaginal bleeding. fibroids ovarian rupture ? US pelvis transabdominal ? Comparison: None ? Findings: ?? Transabdominal scanning performed. ? Anteverted uterus is 10.4 cm length. ?? Normal myometrium. ?? No endometrial lesion, 13 mm thickness. ? Right ovary 4.2 x 3.4 x 2.4 cm. ?? Left ovary 3.3 x 2.8 x 2.5 cm. ?? Normal color Doppler of both ovaries. ? No free fluid. ? IMPRESSION: ?? 1. Nonspecific endometrial prominence. If patient is postmenopausal, ?? appropriate follow-up if patient has true dysfunctional uterine bleeding, ?? likely in consultation with gynecology. ? This document has been electronically signed by: Shon Epperson MD on ?? 05/29/2024 20:38:49 ? Dictated By: ?Shon Epperson MD ? Signed By: ?<Electronically signed by Shon Epperson MD in OV> ?05/29/242039 ? DD/ 37 ? TD/TT: 05/29/242037 ? Head Piece Assembler: ? Procedure Note Donpamela, Image - 05/29/[address] [address] Ultrasound Report Signed Patient: Tana BarrigaMR#: [id number] : 1975Acct:[id number] Age/Sex: 48 / FADM Date: 05/29/24 Loc: HO.ED Attending Dr: Ordering Physician: Mayur Almeida Date of Service: 05/29/24 Procedure(s): US pelvic complete Accession Number(s): [id number] cc: Mayur Almeida; Leesa Mcintosh MD CLINICAL HISTORY: profuse vaginal bleeding. fibroids ovarian rupture US pelvis transabdominal Comparison: None Findings: Transabdominal scanning performed. Anteverted uterus is 10.4 cm length. Normal myometrium. No endometrial lesion, 13 mm thickness. Right ovary 4.2 x 3.4 x 2.4 cm. Left ovary 3.3 x 2.8 x 2.5 cm. Normal color Doppler of both ovaries. No free fluid. IMPRESSION: 1. Nonspecific endometrial prominence. If patient is postmenopausal, appropriate follow-up if patient has true dysfunctional uterine bleeding, likely in consultation with gynecology. This document has been electronically signed by: Shon Epperson MD on 05/29/2024 20:38:49 Dictated By: Shon Epperson MD Signed By: <Electronically signed by Shon Epperson MD in OV> 05/29/242039 DD/ 37 TD/TT: 05/29/242037 Head Piece Assembler: us [facility] External Provider IMG US PROCEDURES Edited Result - Final * (ABNORMAL) Urinalysis, Complete, with Reflex to Culture (05/29/2024 3:36 PM EST) Color Urine Yellow [facility] Appearance Urine Clear [facility] PH 5.0 5.0 - 9.0 [facility] Glucose Urine UA Negative Negative mg/dL [facility] Urine Blood Moderate (2+)(A) Negative [facility] Specific [place] - Urine 1.025 1.005 - 1.025 [facility] Urine Protein Negative Neg-Trace mg/dL [facility] Urine Ketones Trace Negative mg/dL [facility] Nitrite Urine Negative Negative [facility] Leukocyte Esterase Urine Negative Negative [facility] RBC Urine 11-20(A) 0 - 2 /HPF [facility] Urine WBC 0-5 0 - 5 /HPF [facility] Urine Squamous Epithelial Cell 0-2 0 - 2 /HPF [facility] Urine Bacteria None Seen None Seen [facility] Hyaline Casts, Urine 0-2 0 - 2 /LPF [facility] 05/29/2024 3:36 PM EST 05/29/2024 3:42 PM EST Narrative [facility] - 05/29/2024 3:50 PM EST [id number], Clean Catch us Generic External Data Provider LAB URINE ORDERAB LES Final Result Performing Organization Address City/[facility]/ZIP Co de Phone Number [facility] [address] [place] [phone] * Red blood count (05/29/2024 3:35 PM EST) [facility] Red Blood Cells: [id number] OP RC TRANSFUSED 05/29/24 1755 [id number] OP RC TRANSFUSED 05/29/246 [facility] 05/29/2024 3:35 PM EST 05/29/2024 3:45 PM EST us Generic External Data Provider LAB BLOOD ORDERAB LES Final Result Performing Organization Address City/[facility]/ZIP Co de Phone Number [facility] [address] [place] [phone] * Type and screen (05/29/2024 3:35 PM EST) Blood Type OP [facility] Antibody Screen NEGATIVE [facility] 05/29/2024 3:35 PM EST 05/29/2024 3:45 PM EST Narrative [facility] - 05/29/2024 11:15 PM EST BB band not scanned by JOHNNIE Results at Issue Units as of 05/29/24 1756 ...Test View Group: Most Recent HGB ?? HCT Results ?LABORATORYDate ?Time Test ?Result ?Flag Normal Range05/29/24 1507 HGB ?6.3 ?*L ?? 12.0-16.0 g/dlResults of HGB called to and read back by Tan 05/29/24 at 1517 by ALFREDO05/29/24 1507 HCT ?22.2 ?L ?? 37.0-47.0 % Results at Issue Units as of 05/29/247 ...Test View Group: Most Recent HGB ?? HCT Results ?LABORATORYDate ?Time Test ?Result ?Flag Normal Range05/29/24 1507 HGB ?6.3 ?*L ?? 12.0-16.0 g/dlResults of HGB called to and read back by Tan 05/29/24 at 1517 by JORGEODEcho05/29/24 1507 HCT ?22.2 ?L ?? 37.0-47.0 % Hgb < 7 gmNo Generic External Data Provider LAB BLOOD BANK TE ST ORDERABLES Final Result Performing Organization Address [facility] de Phone Number [facility] [address] [place] [address] [phone] * High Sensitivity Troponin I (05/29/2024 3:07 PM EST) [facility] TROPONIN I HIGH SENSITIVITY <2.7 <3.5 - 17.0 ng/L [facility] Comment:The [place] high sens itivity Troponin-I results should beused in conjunction with other diagnostic information suchas ECG, clinical observations and information, and patientsymptoms to aid in the diagnosis of NM. 05/29/2024 3:07 PM EST 05/29/2024 3:14 PM EST Generic External Data Provider LAB BLOOD ORDERAB LES Final Result Performing Organization Address [facility] Phone Number [facility] [address] [place] [address] [phone] * (ABNORMAL) CBC auto differential (05/29/2024 3:07 PM EST) Only the most recent of2 resultswithin the time period is included. [facility] White Blood Count 5.4 4.8 - 10.8 X10*3/uL [facility] Red Blood Count 2.98(L) 4.20 - 5.50 X10*6/uL [facility] Hemoglobin 6.3(LL) 12.0 - 16.0 g/dl [facility] Comment:Results of HGB valenzuela d to and read back by Tan 05/29/24 at 1517 by FELTON. Hematocrit 22.2(L) 37.0 - 47.0 % [facility] Mean Corpuscular Volume 74.5(L) 80.0 - 98.0 fL [facility] Mean Corpuscular Hemoglobin 21.1(L) 27.0 - 33.0 pg [facility] Mean Corpuscular HGB Conc 28.4(L) 31.0 - 35.0 g/dl [facility] Red Cell Distribution Width 22.5(H) 11.0 - 16.0 % [facility] Platelet Count 237 160 - 400 X10*3/uL [facility] Mean Platelet Volume 9.6 9.4 - 12.3 fL [facility] Neutrophils Percent Auto 55.0 45 - 73 % [facility] Imm Gran Pct Auto 0.2 0.0 - 0.4 % [facility] Lymphocytes Percent Auto 33.2 20 - 40 % [facility] Monocytes Percent Auto 9.6 2 - 11 % [facility] Eosinophils Percent Auto 1.1 0 - 4 % [facility] Basophils Percent Auto 0.9 0 - 2 % [facility] NRBC Pct Auto 0.0 0.0 - 0.2 /100WBC [facility] Neutrophils Absolute Auto 3.0 2.0 - 8.3 x10*3/uL [facility] Imm Gran Abs Auto 0.01 0.00 - 0.03 X10*3/uL [facility] Lymphocytes Absolute Auto 1.8 1.2 - 4.9 X10*3/uL [facility] Monocytes Absolute Auto 0.5 0.1 - 1.2 X10*3/uL [facility] Eosinophils Absolute Auto 0.1 0.0 - 0.4 X10*3/uL [facility] Basophils Absolute Auto 0.1 0.0 - 0.2 X10*3/uL [facility] NRBC Abs Auto 0.000 0.0 - 0.012 X10*3/uL [facility] 05/29/2024 3:07 PM EST 05/29/2024 3:14 PM EST us Generic External Data Provider LAB BLOOD ORDERAB LES Final Result Performing Organization Address [facility] Co de Phone Number [facility] [address] [place] [phone] * (ABNORMAL) Partial Thromboplastin Time, Activated (APTT) (05/29/2024 3:07 PM EST) Partial Thromboplastin Time 20.7(L) 26.0 - 36.8 SEC [facility] Comment:For information rega rding the monitoring of direct thrombininhibitors, please refer to Pharmacy. 05/29/2024 3:07 PM EST 05/29/2024 3:14 PM EST Generic External Data Provider LAB BLOOD ORDERAB LES Final Result Performing Organization Address [facility] de Phone Number [facility] [address] [place] [phone] * Prothrombin Time-INR (05/29/2024 3:07 PM EST) Prothrombin Time 11.4 10.9 - 12.4 SEC [facility] INTERNATIONAL NORM RATIO 1.0 0.9 - 1.1 [facility] Comment:INTERNATIONAL NORMAL IZED RATIO (INR) REFERENCE RANGES Reference RangeFor patients not on anticoagulant therapy: 0.9 - 1.1INR ranges for oral anticoagulanttherapy:For prevention and treatment of venous thrombosis and pulmonary embolism: 2.0 - 3.0For acute myocardial infarction with aspirin therapy: 2.0 - 3.0For acute myocardial infarction without aspirin therapy: 3.0 - 4.0For patients with mechanical prosthetic heart valves: 2.5 - 3.5 05/29/2024 3:07 PM EST 05/29/2024 3:14 PM EST Generic External Data Provider LAB BLOOD ORDERAB LES Final Result Performing Organization Address [facility] Co de Phone Number [facility] [address] [place] [phone] * hCG, Total, Quantitative (05/29/2024 3:07 PM EST) HCG Quantitative <2 mIU/mL [facility] Comment:Weeks post LMP Appro ximate hCG(Last Menstrual Period) Range (mIU/ml)3 - 4 weeks 9 - 1304 - 5 weeks 75 - 2,6005 - 6 weeks 850 - 20,8006 - 7 weeks 4000 - 100,2007 - 12 weeks 11,500 - 289,62411 - 16 weeks 18,300 - 137,50458 - 29 weeks (2nd trimester) 1,400 - 53,67011 - 41 weeks (3rd trimester) 940 - 60,000The [place] B- hCG assay is used for the early detection ofpregnancy; it cannot be used to diagnose any conditionunrelated to . If a B-hCG level is not supportedby the clinical evidence, results should be confirmed by analternative method (qualitative urine hCG, for example). 05/29/2024 3:07 PM EST 05/29/2024 3:14 PM EST us Generic External Data Provider LAB BLOOD ORDERAB LES Final Result [facility] [address] [place] [address] [phone] * (ABNORMAL) Comprehensive Metabolic Panel (05/29/2024 3:07 PM EST) Sodium 138 135 - 145 mmol/L [facility] Potassium 3.9 3.3 - 5.1 mmol/L [facility] Chloride 109(H) 96 - 108 mmol/L [facility] Carbon Dioxide 22 22 - 29 mmol/L [facility] Anion Gap 11(L) 12 - 20 [facility] Urea Nitrogen (BUN) 9 9 - 16 mg/dL [facility] Creatinine, Serum 0.65 0.5 - 1.4 mg/dL [facility] Creatinine Clr Calc Pharmacy 110.9 [facility] Comment:Provided height and weight: 160.02 cm,83.915 kg.eGFR (calculated from the MDRD study equation) and eCrCl(calculated from the Cockcroft-Gault equation) are based ondifferent parameters and may not yield comparable results.If eCrCl result is absurd, please check patient'sheight/weight. Estimated Glomerular Filt Rate >60 [facility] Comment:Chronic Kidney Disea se: Estimated GFR < 60 mL/min/1.63p5Upgikw Kidney Disease: Estimated GFR < 15 mL/min/1.73m2 Glucose 103 60 - 115 mg/dL [facility] Calcium 8.8 8.4 - 10.2 mg/dL [facility] Bilirubin, Total 0.3 0.0 - 1.0 mg/dL [facility] Aspartate Amino Transferase 20 5 - 31 U/L [facility] Alanine Aminotransferase 10 0 - 31 U/L [facility] Total Protein 6.9 6.5 - 8.0 g/dL [facility] Albumin Level 3.7 3.5 - 5.0 g/dL [facility] Alkaline Phosphatase 74 39 - 117 U/L [facility] 05/29/2024 3:07 PM EST 05/29/2024 3:14 PM EST us Generic External Data Provider LAB BLOOD ORDERAB LES Final Result [facility] [address] [place] [phone] * Respiratory Viral Panel PCR (04/03/2024 12:00 AM EST) Adenovirus PCR Not Detected Not Detect. [facility] Bordetella pertussis PCR Not Detected Not Detect. [facility] Comment:Interpret results wi th caution. If B. pertussis isspecifically suspected, additional testing using analternate method is recommended. Bordetella parapertussis PCR Not Detected Not Detect. [facility] Chlamydia pneumoniae PCR Not Detected Not Detect. [facility] Coronavirus 229E PCR Not Detected Not Detect. [facility] Coronavirus HKU1 PCR Not Detected Not Detect. [facility] Coronavirus NL63 PCR Not Detected Not Detect. [facility] Coronavirus OC43 PCR Not Detected Not Detect. [facility] SARS-CoV-2 PCR Not Detected Not Detect. [facility] Comment:SARS-CoV-2 not detec garth by real-time RT-PCR.Note: If clinical suspicion for Sars-CoV-2 is high, continueto maintain precautions and consider repeat testing.Test results should be interpreted in the context ofclinical findings and other laboratory data.Rare polymorphisms exist that could lead to false-negativeor false-positive results. If results do not match theclinical findings, additional testing should be considered.Results reported to [facility].This test has been authorized by the FDA under the EmergencyUse Authorization (EUA) for use by authorized laboratories. Influenza A PCR Not Detected Not Detect. [facility] Influenza B PCR Not Detected Not Detect. [facility] Human metapneumovirus PCR Not Detected Not Detect. [facility] Rhino/Enterovirus PCR Not Detected Not Detect. [facility] Mycoplasma pneumoniae PCR Not Detected Not Detect. [facility] Parainfluenza 1 PCR Not Detected Not Detect. [facility] Parainfluenza 2 PCR Not Detected Not Detect. [facility] Parainfluenza 3 PCR Not Detected Not Detect. [facility] Parainfluenza 4 PCR Not Detected Not Detect. [facility] RSV PCR Not Detected Not Detect. [facility] Resp Panel NA Note See Note H [facility] Comment:All results must be correlated with clinical findings.Negative results should not be used as the sole basis fordiagnosis, treatment, or other management decisions.A negative result does not exclude the possibility of viralor bacterial infection. Negative results may occur from thepresence of sequence variants in the region targeted by theassay, the presence of inhibitors, an infection caused by anorganism not detected by the panel, or lower respiratorytract infections that are not detected by a nasopharyngealswab specimen. Test results may also be affected byconcurrent antiviral/antibacterial therapy or levels oforganism in the specimen that are below the limit ofdetection for this test.This assay is performed by Multiplexed PCR, utilizing [employer]. 04/03/2024 04/03/2024 Leesa Mcintosh MD LAB BLOOD ORDERABLES Final Result Performing Organization Address [facility] Co de Phone Number [facility] [address] [place] [address] [phone] * TSH W/Reflex to FT4 (04/02/2024 11:55 AM EST) TSH reflex Free T4 0.49 0.32 - 4.0 uIU/mL [facility] Blood 04/02/2024 11:5 5 AM EST 04/02/2024 1:14 PM EST Leesa Mcintosh MD LAB BLOOD ORDERABLES Final Result Performing Organization Address [facility] Phone Number [facility] [address] [place] [address] [phone] * (ABNORMAL) Iron And Total Iron Binding Capacity (04/02/2024 11:55 AM EST) [facility] Iron 14(L) 30 - 160 mcg/dL [facility] Total Iron Binding Capacity 346 228 - 428 mcg/dL [facility] Percent Iron Saturation 4(L) 15 - 50 % [facility] Unsaturated Iron Binding 332 ug/dL [facility] Blood Venous blood specimen / Unknown 04/02/2024 11:55 AM EST 04/02/2024 1:14 PM EST Leesa Mcintosh MD LAB BLOOD ORDERABLES Final Result Performing Organization Address [facility] de Phone Number [facility] [address] [place] [address] [phone] * Folate, Serum (04/02/2024 11:55 AM EST) Folate 14.6 > or = 4.0 ng/mL [facility] Comment:Reference Values:> o r = 4.0 ng/mL< 4.0 ng/mL suggests folate deficiency Methotrexate, aminopterin and folinic acid(leucovorin) are chemotherapeutic agents whose molecularstructures are similar to folate; therefore, the Architectfolate assay cannot be used for patients using these drugs. Blood Venous blood specimen / Unknown 04/02/2024 11:55 AM EST 04/02/2024 1:14 PM EST Leesa Mcintosh MD LAB BLOOD ORDERABLES Final Result Performing Organization Address City/[facility]/ZIP Co de Phone Number [facility] [address] [place] [address] [phone] * Ferritin (04/02/2024 11:55 AM EST) Ferritin 29 10 - 250 ng/mL [facility] Blood Venous blood specimen / Unknown 04/02/2024 11:55 AM EST 04/02/2024 1:14 PM EST Leesa Mcintosh MD LAB BLOOD ORDERABLES Final Result Performing Organization Address [facility] Co de Phone Number [facility] [address] [place] [address] [phone] * Vitamin B12 (04/02/2024 11:55 AM EST) Vitamin B12 450 200 - 900 pg/mL [facility] Comment:NORMAL 200-900 PG/ML INDETERMINATE 160-199 PG/ML DEFICIENT < 160 PG/ML Blood Venous blood specimen / Unknown 04/02/2024 11:55 AM EST 04/02/2024 1:14 PM EST Leesa Mcintosh MD LAB BLOOD ORDERABLES Final Result Performing Organization Address [facility] Co de Phone Number [facility] [address] [place] [address] [phone] * Hepatic Function Panel (04/02/2024 11:55 AM EST) Bilirubin, Total 0.8 0.0 - 1.0 mg/dL [facility] Bilirubin, Direct 0.3 0.0 - 0.5 mg/dL [facility] Aspartate Amino Transferase 19 5 - 31 U/L [facility] Alanine Aminotransferase 10 0 - 31 U/L [facility] Total Protein 7.8 6.5 - 8.0 g/dL [facility] Albumin Level 3.9 3.5 - 5.0 g/dL [facility] Alkaline Phosphatase 72 39 - 117 U/L [facility] Blood Venous blood specimen / Unknown 04/02/2024 11:55 AM EST 04/02/2024 1:14 PM EST us Leesa Mcintosh MD LAB BLOOD ORDERABLES Final Result [facility] [address] [place] [address] [phone] * (ABNORMAL) Basic Metabolic Panel (04/02/2024 11:55 AM EST) Pathologist [facility] Sodium 135 135 - 145 mmol/L [facility] Potassium 3.6 3.3 - 5.1 mmol/L [facility] Chloride 105 96 - 108 mmol/L [facility] Carbon Dioxide 21(L) 22 - 29 mmol/L [facility] Anion Gap 13 12 - 20 [facility] Urea Nitrogen (BUN) 7(L) 9 - 16 mg/dL [facility] Creatinine, Serum 0.62 0.5 - 1.4 mg/dL [facility] Estimated Glomerular Filt Rate >60 [facility] Comment:NOTE: For -Am erican individuals, multiply the result by 1.210.Chronic Kidney Disease: Estimated GFR < 60 mL/min/1.53i6Pramzw Kidney Disease: Estimated GFR < 15 mL/min/1.73m2 Glucose 97 60 - 115 mg/dL [facility] Calcium 8.9 8.4 - 10.2 mg/dL [facility] Blood Venous blood specimen / Unknown 04/02/2024 11:55 AM EST 04/02/2024 1:14 PM EST us Leesa Mcintosh MD LAB BLOOD ORDERABLES Final Result [facility] [address] [place] [phone] * BI Mammogram Screening Tomosynthesis Bilateral (11/21/2023 11:20 AM EDT) Anatomical Region Laterality Modality Breast Bilateral Mammography 11/21/2023 11:2 0 AM EDT Narrative 12/20/2023 9:50 AM EDT ? [facility] ? [address] ?[place] [address] ? Mammography Report ? Signed ? Patient: Linus,Tana ?MR#: [id number] ?? [id number] ? : 1975 ?Acct:[id number] ? Age/Sex: 48 / F ?ADM Date: 11/21/23 ? Loc: HO.MAMMO ? Attending Dr: Leesa Mcintosh MD ? Ordering Physician: Leesa Mcintosh MD ?Results: 1N ?? egative ? Date of Service: 11/21/23 ?Follow Up: 1 Year From Orig ?? inal Mammogram ? Procedure(s): MM tomosynthesis screening BI ?? Accession Number(s): [id number] ? cc: Leesa Mcintosh MD ? EXAMINATION: ?? MM SCREENING DIGITAL BREAST TOMOSYNTHESIS, BILATERAL ? CLINICAL INFORMATION: ? Screening. Asymptomatic. ? COMPARISON: ?? Mammography: This study is compared with prior exams dating back to ?? 2018. ? TECHNIQUE: ?? Digital breast tomosynthesis is performed in both the craniocaudal and ?? mediolateral oblique views along with computer-aided detection (CAD). ?? Synthesized 2D images are generated from the tomosynthesis. ? FINDINGS: ?? There are scattered areas of fibroglandular density (ACR BI-RADS breast ?? composition Category b). ? There are no significant masses, abnormal calcifications, or other ?? abnormalities. ? MM/MM tomosynthesis screening BI ?? IMPRESSION: ?? No mammographic evidence of malignancy. ? ASSESSMENT: ? BI-RADS BI-RADS 1 - Negative ? RECOMMENDATION: ?? Routine annual mammography screening. ? 1 year F/U ? This examination should not preclude the clinical evaluation of a ?? suspicious palpable abnormality. ? This patient's information was entered into a reminder system with a ?? target due date for their next mammogram. ? Dictated By: ?Charley Shahid MD ? Signed By: ?<Electronically signed by Charley Shahid MD in OV> ? 12/20/23 0946 ? DD/ 1120 ? TD/TT: ? Head Piece Assembler: ? Procedure Note Felicity Concepcion - 12/20/2023 [facility] [address] [place] [address] Mammography Report Signed Patient: Tana Barriga#: [id number] : 1975Acct:[id number] Age/Sex: 48 / FADM Date: 11/21/23 Loc: MAMMO Attending Dr: Leesa Mcintosh MD Ordering Physician: Leesa Mcintoshesults: 1N egative Date of Service: 11/21/23Follow Up: 1 Year From Orig inal Mammogram Procedure(s): MM tomosynthesis screening BI Accession Number(s): [id number] cc: Leesa Mcintosh MD EXAMINATION: MM SCREENING DIGITAL BREAST TOMOSYNTHESIS, BILATERAL CLINICAL INFORMATION: Screening. Asymptomatic. COMPARISON: Mammography: This study is compared with prior exams dating back to 2018. TECHNIQUE: Digital breast tomosynthesis is performed in both the craniocaudal and mediolateral oblique views along with computer-aided detection (CAD). Synthesized 2D images are generated from the tomosynthesis. FINDINGS: There are scattered areas of fibroglandular density (ACR BI-RADS breast composition Category b). There are no significant masses, abnormal calcifications, or other abnormalities. MM/MM tomosynthesis screening BI IMPRESSION: No mammographic evidence of malignancy. ASSESSMENT: BI-RADS BI-RADS 1 - Negative RECOMMENDATION: Routine annual mammography screening. 1 year F/U This examination should not preclude the clinical evaluation of a suspicious palpable abnormality. This patient's information was entered into a reminder system with a target due date for their next mammogram. Dictated By: Charley Shahid MD Signed By: <Electronically signed by Charley Shahid MD in OV> 12/20/23 0946 DD/ 1120 TD/TT: Head Piece Assembler: Leesa Mcintosh MD IMG BI PROCEDURES Final Re sult * Hepatitis C Antibody with Reflex to HCV, RNA, Quantitative, Real-Time PCR (04/25/2023 5:09 PM EST) Hepatitis C Antibody Nonreactive Nonreactive [facility] Comment:Antibodies to HCV no t detected; does not exclude early acuteHCV infection. Blood Venous blood specimen / Unknown 04/25/2023 5:09 PM EST 04/25/2023 5:28 PM EST Leesa Mcintosh MD LAB BLOOD ORDERABLES Final Result [facility] [address] [place] [phone] * HIV-1/2 Antigen and Antibodies, Fourth Generation, with Reflexes (04/25/2023 5:09 PM EST) HIV AB/AG Nonreactive Nonreactive [facility] Comment:HIV-1 p24 Ag and/or HIV-1/HIV-2 Ab not detected.A test result that is nonreactive does not exclude thepossibility of exposure to or infection with HIV-1 and/orHIV-2. Nonreactive results in this assay for individualswith prior exposure to HIV-1 and/or HIV-2 may be due toantigen and antibody levels that are below the limit ofdetection of this assay.The [employer] HIV Ag/Ab Combo assay result andsupplemental assay results should be interpreted inconjunction with the patient's clinical presentation,history and other laboratory results. If the results areinconsistent with clinical evidence, additional testing issuggested to confirm the result. Blood Venous blood specimen / Unknown 04/25/2023 5:09 PM EST 04/25/2023 5:28 PM EST Leesa Mcintosh MD LAB BLOOD ORDERABLES Final Result [facility] [address] [place] [phone] * OCCULT BLOOD STOOL (04/28/2019 7:02 PM EST) Pathologist [facility] OCCULT BLOOD STOOL NEG NEG [facility] 04/28/2019 7:02 PM EST Steven Provider LAB BODY FLUIDS AND STOOL S ORDERABLES Final Result [facility] [address] * HPV E6/E7 RFLX RUFUS 16 18/45 (02/01/2018 9:10 AM EDT) Pathologist [facility] ADDITIONAL TESTING Not indicated () [facility] Comment: Test Performed by [employer], [facility], [address] [place], [place] Elian Moscoso M.D., Ph.D., Director of Laboratories , CLIA [id number] HPV mRNA E6/E7 Not Detected NOT DETECTED [facility] Comment: This test was performed using the APTIMA(R) HPV Assay ([employer] This assay detects E6/E7 viral messenger RNA (mRNA) from 14 high-risk HPV types (16,18,31,33,35,39,45,51, 52,56,58,59,66,68). For additional information please refer to: http://education.[employer]/faq/IWW810g5 (This link is being provided for informational/ educational purposes only.) The analytical performance characteristics of this assay have been determined by [employer] [place], [place]. The modifications have not been cleared or approved by the FDA. This assay has been validated pursuant to the CLIA regulations and is used for clinical purposes. Please note: ??Effective 02/07/2016, HPV testing will be performed using [employer] APTIMA test which targets mRNA. Detecting mRNA instead of DNA, as in older methods, offers significant improvements in specificity. HPV 16 RNA Test not performed [facility] HPV 18/45 RNA Test not performed [facility] 02/01/2018 9:10 AM EDT us Leesa Mcintosh MD HISTORICAL/NON ORDERABLE L ABS Final Result [facility] [address] from Last 3 Months or Most Recently Relevant to Health Maintenance Insurance [facility] [employer] Care Teams Biomedical Photographer Relationship Specialty Start Date End Date Dayna, MD Leesa [address] [place] [phone] PCP - General Family Medicine 06/04/17 Patricio Rosen MD [address] [place] [phone] Hematology and Oncology 05/14/24 Oniel Palacios MD [address] [place] [address] [address] [place] [address] Gastroenterology 05/14/24
[2024-07-02 21:04] LABS: Basophils Percent Auto 0.5 % (0-2); Hematocrit 22.1 % (37.0-47.0); Lymphocytes Absolute Auto 0.8 X10*3/uL (1.2-4.9); Lymphocytes Percent Auto 37.6 % (20-40); MANUAL DIFF FLAG SCAN; Mean Corpuscular Hemoglobin 21.4 pg (27.0-33.0); Mean Corpuscular Volume 73.9 fL (80.0-98.0); Mean Platelet Volume 9.7 fL (9.4-12.3); Monocytes Absolute Auto 0.3 X10*3/uL (0.1-1.2); Monocytes Percent Auto 16.1 % (2-11); Neutrophils Absolute Auto 0.9 x10*3/uL (2.0-8.3); Neutrophils Percent Auto 45.8 % (45-73); Platelet Count 208 X10*3/uL (160-400); Red Blood Count 2.99 X10*6/uL (4.20-5.50); SCAN SMEAR FLAG 1
[2024-07-02 21:12] LABS: White Blood Count 2.1 X10*3/uL (4.8-10.8)
[2024-07-02 21:15] LABS: Hemoglobin 6.4 g/dl (12.0-16.0)
[2024-07-02 21:21] LABS: Alanine Aminotransferase 11 U/L (0-31); Albumin Level 3.6 g/dL (3.5-5.0); Alkaline Phosphatase 64 U/L (39-117); Anion Gap 8 (12-20); Aspartate Amino Transferase 28 U/L (5-31); Bilirubin Total 0.2 mg/dL (0.0-1.0); Blood Urea Nitrogen 10 mg/dL (9-16); Calcium 7.9 mg/dL (8.4-10.2); Carbon Dioxide 23 mmol/L (22-29); Chloride 111 mmol/L (96-108); Creatinine Clr Calc Pharmacy 123.3; Estimated Glomerular Filt Rate > 60; Glucose Random 98 mg/dL (60-115); Lipase 50 U/L (8-78); Potassium 3.3 mmol/L (3.3-5.1); Sodium 139 mmol/L (135-145); Total Protein 7.1 g/dL (6.5-8.0)
--- NOTE | 2024-07-02 21:21 | ED.GENADULT ---
HPI - General Adult General Chief complaint: General Medical Stated complaint: weakness Time Seen by Provider: 07/02/24 20:17 Source: patient and EMS Mode of arrival: EMS Limitations: no limitations History of Present Illness ED Provider: Mary Ledezma NP HPI narrative: Patient is a 48-year-old female presents emergency department via EMS for evaluation. She endorses over the past 3 days she has been experiencing generalized malaise, fatigue, nonproductive cough, shortness of breath that she feels is consistent with her anemia and requiring a blood transfusion. Reports she was last seen here early May of 2024, she has an appointment for follow-up with her OBGYN but this is not scheduled until 06/29/2024. She does report that her menstrual period began 1 week ago she is currently still bleeding but it is just near the end. Denies any known sick contacts. Denies headache, dizziness, chest pain, nausea, vomiting, abdominal pain, hematochezia, melena, hematuria, urinary symptoms. Related Data Home Medications ?Medication ?Instructions ?Recorded ?Confirmed ferrous sulfate 325 mg (65 mg 325 mg PO DAILY 10/22/20 10/22/20 iron) tablet (Iron (ferrous sulfate)) Previous Rx's ?Medication ?Instructions ?Recorded medroxyprogesterone 10 mg tablet 10 mg PO DAILY #30 tabs 05/29/24 (Provera) Allergies Allergy/AdvReac Type Severity Reaction Status Date / Time No Known Allergies Allergy Verified 07/02/24 20:31 Review of Systems Review of Systems: Yes all other systems are reviewed and are negative PMFSH Past Medical History Attestation statement: The following information was validated with the patient. Source: old records reviewed Medical History Anemia Family History Family History Mother Breast cancer Maternal Aunt Breast cancer Maternal Grandmother Breast cancer Maternal Grandfather Skin cancer Social History Social History Alcohol intake: never Patient Tobacco Use Status: Never used Tobacco Advance Directives: No Advance Directives Information Provided: Yes Physical Exam ED Vital Signs: Vital Signs - 24 hr 07/02/24 20:28 07/02/24 22:06 07/02/24 22:50 Temperature 98.4 F 98.4 F 98 F Pulse Rate 85 73 72 Respiratory Rate 16 16 18 Blood Pressure 117/93 H 103/54 L 91/51 L Pulse Oximetry 100 99 Oxygen Delivery Method Room Air Room Air 07/02/24 22:59 07/02/24 23:09 07/03/24 00:00 Temperature 98.5 F Pulse Rate 77 72 71 Respiratory Rate 18 18 18 Blood Pressure 95/54 L 99/53 L 102/60 Pulse Oximetry 98 97 Oxygen Delivery Method Room Air Room Air 07/03/24 00:43 07/03/24 00:53 07/03/24 00:56 Temperature 98.5 F 98.5 F 98.5 F Pulse Rate 71 72 72 Respiratory Rate 18 16 16 Blood Pressure 102/60 94/51 L 94/51 L Pulse Oximetry 97 97 Oxygen Delivery Method Room Air Room Air BMI result Body Mass Index 33.3 Appearance: Alert.?Oriented to person, place and time. No acute distress.?Normal affect. Eyes: Pupils equal, round and reactive to light.? ENT: Pharynx normal.?? Neck: Normal inspection.? Neck supple.?? CVS: Heart sounds normal. Normal heart rate and rhythm.? Pulses normal.?? Respiratory: No respiratory distress.? Lung sounds clear to auscultation bilaterally?? Abdomen: Soft and non-tender. Normoactive bowel sounds. ? Skin: Skin warm and dry.? Skin color appears pale for ethnicity Extremities: No lower extremity edema.? Neuro: Moves all extremities spontaneously. Sensation intact bilaterally. No focal neuro deficits. Ambulates with normal steady gait. Course Reevaluation(s) Reevaluation #1: Received call from lab regarding critical hemoglobin 6.4, patient received 2 units PRBC transfusion. She is agreeable. We reviewed indications for blood transfusion, possible side effects/complications. Blood consent form was reviewed and signed placed in chart. Nursing staff aware of plan. She was also noted to be influenza A positive she was made aware of this. Time: 21:21 Medical Decision Making Medical Decision Making MDM Narrative: Patient is a 48-year-old female with history of iron-deficiency anemia requiring iron transfusions and blood transfusions in the past, dysfunctional uterine bleeding awaiting outpatient follow-up with OBGYN scheduled for 07/09/2024 who presents for symptomatic anemia as per HPI. On evaluation she has chronic baseline leukopenia, microcytic anemia lower than baseline; H and H 6.4/22.1. No hemodynamic instability, no hypotension, no tachycardia, can not vaginal bleeding at this time has just finished her menses I suspect this is secondary to a contributing worsening anemia. 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 This is chronic in nature, I do not suspect that she will require admission at this time, anticipate that once stable she may be discharged home Differential Diagnosis Differential Diagnoses: The differential diagnosis associated with the presentation includes (See narrative above) Admission/Observation Consideration of admission/observation: Escalation of care including admission/observation considered Lab Data MDM Lab Attestation statement: I reviewed the patient's lab results. (See narrative above) 07/03/24 02:35 07/02/24 20:54 Labs: Lab Results 07/02/24 07/02/24 07/03/24 Range/Units 20:54 21:31 02:35 WBC 2.1 L 2.5 L (4.8-10.8) X10*3/uL RBC 2.99 L 3.65 L D (4.20-5.50) X10*6/uL Hgb 6.4 L* 8.5 L D (12.0-16.0) g/dl Hct 22.1 L 28.2 L D (37.0-47.0) % MCV 73.9 L 77.3 L (80.0-98.0) fL MCH 21.4 L 23.3 L (27.0-33.0) pg MCHC 29.0 L 30.1 L (31.0-35.0) g/dl RDW 19.0 H 19.8 H (11.0-16.0) % Plt Count 208 184 (160-400) X10*3/uL MPV 9.7 9.4 (9.4-12.3) fL Immature Gran % (Auto) 0.0 0.0 (0.0-0.4) % Neut % (Auto) 45.8 44.9 L (45-73) % Lymph % (Auto) 37.6 38.9 (20-40) % [place] % (Auto) 16.1 H 15.4 H (2-11) % Eos % (Auto) 0.0 0.0 (0-4) % Baso % (Auto) 0.5 0.8 (0-2) % Lymph # (Auto) 0.8 L 1.0 L (1.2-4.9) X10*3/uL [place] # (Auto) 0.3 0.4 (0.1-1.2) X10*3/uL Eos # (Auto) 0.0 0.0 (0.0-0.4) X10*3/uL Baso # (Auto) 0.0 0.0 (0.0-0.2) X10*3/uL Abs Immat Gran (auto) 0.00 0.00 (0.00-0.03) X10*3/uL Absolute Neuts (auto) 0.9 L 1.1 L (2.0-8.3) x10*3/uL Absolute Nucleated RBC 0.000 0.000 (0.0-0.012) X10*3/uL Nucleated RBC % (auto) 0.0 0.0 (0.0-0.2) /100WBC Smear Tech's Comments VERIFIED PT 12.0 (10.9-12.4) SEC INR 1.0 (0.9-1.1) Sodium 139 (135-145) mmol/L Potassium 3.3 (3.3-5.1) mmol/L Chloride 111 H (96-108) mmol/L Carbon Dioxide 23 (22-29) mmol/L Anion Gap 8 L (12-20) BUN 10 (9-16) mg/dL Creatinine 0.59 (0.5-1.4) mg/dL Estim Creat Clear Calc 123.3 Estimated GFR > 60 Random Glucose 98 (60-115) mg/dL Calcium 7.9 L D (8.4-10.2) mg/dL Magnesium 2.0 (1.6-2.6) mg/dL Total Bilirubin 0.2 (0.0-1.0) mg/dL AST 28 (5-31) U/L ALT 11 (0-31) U/L Alkaline Phosphatase 64 (39-117) U/L Total Protein 7.1 (6.5-8.0) g/dL Albumin 3.6 (3.5-5.0) g/dL Lipase 50 (8-78) U/L Influenza Type A (PCR) POSITIVE A (Negative) Influenza Type B (PCR) NEGATIVE (Negative) RSV RNA Qual (PCR) NEGATIVE (Negative) SARS-CoV-2 RNA (RT-PCR) NEGATIVE (Negative) Blood Type O Positive Antibody Screen NEGATIVE Crossmatch See Detail Independent Interpretation I performed an independent interpretation of an: Plain X-Ray Radiology Impression Discussion of test interpretation with radiology: I have reviewed the radiologist's reading. Radiologist Impression: 2 view chest x-ray Comparison: Chest x-ray from 01/06/2016 Findings: Mild opacities partly obscure right heart border. No lobar consolidation. Mild emphysematous changes. No pneumothorax or pleural effusion. Imaged mediastinum and osseous structures appear unchanged. IMPRESSION: Mild atelectasis and/or pneumonitis of the right heart border.. Independent Historian Clinical information obtained from an independent historian. History obtained from or confirmed by: EMS External Record Review External record reviewed: Outpatient record Chronic Conditions Patient?s care impacted by: Other (See narrative above) Critical Care Time Critical Care Time Critical Care Time: Yes Total Critical Care Time: 40 Attestation: I personally attest to this critical care time spent taking care of the patient exclusive of all other billable procedures was approximately 40 minutes including initial evaluation of patient, ordering tests, x-ray interpretation, symptomatic anemia, requiring 2units PRBC transfusion, documentation, re-evaluation. Discharge Plan Discharge Clinical Impression: Iron deficiency anemia, Influenza A Patient Disposition: Home, Self-Care Instructions: Influenza (ED), Anemia (ED) Additional Instructions: You were evaluated in the emergency department today for your symptoms, you were noted to be anemic for which received 2 units of packed red blood cell transfusion. You were also found to be flu positive. Please be sure that you follow-up as scheduled with your OBGYN on 07/09/2024 for further evaluation of your heavy menstrual bleeding and subsequent anemia requiring a total of 4 units of blood transfused over the past month. Prescription for Tamiflu has been sent to the pharmacy, you may use this at your own discretion. This is used lymph symptoms have started within the past 48 hours with the hope that it will shorten the duration of time that you are ill. It is not curative. It is not required to be taken for you to get better. It may come with side effects which can include nausea, vomiting, headaches. Return to emergency department any new or worsening symptoms or concerns Prescriptions: No Action ferrous sulfate [Iron (ferrous sulfate)] 325 mg (65 mg iron) Tablet 325 mg PO DAILY medroxyprogesterone [Provera] 10 mg tablet 10 mg PO DAILY Qty: 30 0RF Interventions: ED Discharge Assessment Last Done: 07/03/24 00:56 Discharge Date/Time: 07/03/24 07:44 Print Language: Bengali
[2024-07-02 21:41] LABS: Influenza A PCR POSITIVE (Negative); Influenza B PCR NEGATIVE (Negative); Resp Syncy Virus RNA Qual PCR NEGATIVE (Negative); SARS COV2 PCR INHOUSE NEGATIVE (Negative)
[2024-07-02 21:52] LABS: SLIDE REVIEW VERIFIED
[2024-07-02 22:06] VITALS: BP 103/54; PULSE 73; RESP 16; TEMP 36.9; O2SAT 99
[2024-07-02 22:50] VITALS: BP 91/51; PULSE 72; RESP 18; TEMP 36.6
[2024-07-02 22:59] VITALS: BP 95/54; PULSE 77; RESP 18; O2SAT 98
--- NOTE | 2024-07-02 22:59 | PC.NURSE ---
1st unit of RBCs infusing per provider orders. Initiated at 22:54 on 07/02/2024. Two daughters at bedside. Infusing via 20g IV access in left AC. No acute distress at this time. Occasionally coughing, Flu A+.
[2024-07-02 23:09] VITALS: BP 99/53; PULSE 72; RESP 18; TEMP 36.9
[2024-07-03] VITALS: BP 102/60; PULSE 71; RESP 18; O2SAT 97
[2024-07-03 00:43] VITALS: BP 102/60; PULSE 71; RESP 18; TEMP 36.9
[2024-07-03 00:53] VITALS: BP 94/51; PULSE 72; RESP 16; TEMP 36.9; O2SAT 97
[2024-07-03 00:56] VITALS: BP 94/51; PULSE 72; RESP 16; TEMP 36.9; O2SAT 97
[2024-07-03 05:09] LABS: Basophils Percent Auto 0.8 % (0-2); Hematocrit 28.2 % (37.0-47.0); Hemoglobin 8.5 g/dl (12.0-16.0); Lymphocytes Percent Auto 38.9 % (20-40); Mean Corpuscular HGB Conc 30.1 g/dl (31.0-35.0); Mean Corpuscular Hemoglobin 23.3 pg (27.0-33.0); Mean Corpuscular Volume 77.3 fL (80.0-98.0); Mean Platelet Volume 9.4 fL (9.4-12.3); Monocytes Absolute Auto 0.4 X10*3/uL (0.1-1.2); Monocytes Percent Auto 15.4 % (2-11); Neutrophils Absolute Auto 1.1 x10*3/uL (2.0-8.3); Neutrophils Percent Auto 44.9 % (45-73); Platelet Count 184 X10*3/uL (160-400); Red Blood Count 3.65 X10*6/uL (4.20-5.50); Red Cell Distribution Width 19.8 % (11.0-16.0); SCAN SMEAR FLAG 1; White Blood Count 2.5 X10*3/uL (4.8-10.8)
[2024-07-03 05:10] LABS: MANUAL DIFF FLAG NO
== END 2024-07-03 07:44 | disposition home or self-care (01) ==
PROVIDERS: Nurse Practitioner Family; Emergency Provider Emergency Medicine
DX: D50.9 Iron deficiency anemia, unspecified (principal); J10.1 Influenza due to other identified influenza virus with other respiratory manifestations; R05.9 Cough, unspecified; R53.83 Other fatigue
CPT/HCPCS: 0241U; 36415; 36430; 71046; 80053; 83690; 83735; 85025; 85610; 86850; 86900; 86901; 86923; 99284; 99285; P9016

== ENCOUNTER → 2024-07-02 20:25 | Outpatient (BNV) | payer MEDICAID, SELFPAY | PROVIDERS: Emergency Provider Emergency Medicine; Visit Provider Radiology Neuroradiology | DX: R05.9 Cough, unspecified (principal); R53.1 Weakness | CPT/HCPCS: 71046 ==

== ENCOUNTER 2024-10-15 18:29 | Emergency (ER) | payer MEDICAID, SELFPAY ==
[2024-10-15] VITALS (7 sets, daily range): BP systolic 97–108; BP diastolic 55–67; PULSE 75–81; RESP 18–20; TEMP 36.2–36.9; O2SAT 99–100; BMI 33.7
--- NOTE | 2024-10-15 18:57 | ED.GENADULT ---
HPI - General Adult General Chief complaint: Recheck/Abnormal Lab/Rx Stated complaint: hemoglobin 6.9 from urgent care Time Seen by Provider: 10/15/24 19:18 Source: patient Mode of arrival: ambulatory Limitations: no limitations History of Present Illness ED Provider: DR. Marino HPI narrative: 48 yo F w/PMHx anemia presenting to the ED sent in from [facility] for low H/H on outpatient labs today 6.9. Admits to fatigue, blurry vision (typical sx for her with anemia). Last transfusion around . Admits to having heavy menses last week & Menses is is ophthalmic technologist for the past 2 days now. No rectal bleed, no use of blood thinner. Patient had blood transfusion several times in her life because of Heavy menses. Related Data Home Medications ?Medication ?Instructions ?Recorded ?Confirmed ferrous sulfate 325 mg (65 mg 325 mg PO DAILY 10/22/20 10/22/20 iron) tablet (Iron (ferrous sulfate)) Previous Rx's ?Medication ?Instructions ?Recorded medroxyprogesterone 10 mg tablet 10 mg PO DAILY #30 tabs 05/29/24 (Provera) Allergies Allergy/AdvReac Type Severity Reaction Status Date / Time No Known Allergies Allergy Verified 10/15/24 18:59 Review of Systems Review of Systems: All other systems are reviewed and are negative Constitutional: Reports as per HPI and Reports no additional constitutional complaints Eyes: Reports as per HPI and Reports no additional eye complaints Reports system reviewed and no additional complaints, except as documented Cardiovascular: Reports as per HPI and Reports no additional cardiovascular complaints Respiratory: Reports as per HPI and Reports no additional respiratory complaints Gastrointestinal: Reports as per HPI and Reports no additional gastrointestinal complaints Genitourinary: Reports no additional female genitourinary complaints Musculoskeletal: Reports no additional musculoskeletal complaints Skin/Breast: Reports system reviewed and no additional complaints, except as docu Psychiatric: Reports no additional psychiatric complaints Endocrine: Reports no additional endocrine complaints Hematologic/Lymphatic: Reports no additional hematologic/lymphatic complaints Allergic/Immunologic: Reports no additional allergic/immunologic complaints Reports system reviewed and no additional complaints, except as documented and Reports Abnormal speech present [facility] Past Medical History Medical History Anemia Family History Family History Mother Breast cancer Maternal Aunt Breast cancer Maternal Grandmother Breast cancer Maternal Grandfather Skin cancer Social History Social History Alcohol intake: never Patient Tobacco Use Status: Never used Tobacco Smoked in Last 30 Days: No Use of substances other than those prescribed or required for medical reasons: No Advance Directives: No Advance Directives Information Provided: Yes Do you have a plan to hurt others: No Plan Physical Exam ED Vital Signs: Vital Signs - 24 hr 10/15/24 18:57 10/15/24 20:02 10/15/24 20:47 Temperature 97.1 F 98.4 F 98.3 F Pulse Rate 76 80 75 Respiratory Rate 18 20 18 Blood Pressure 108/62 108/67 107/55 L Pulse Oximetry 100 99 Oxygen Delivery Method Room Air Room Air 10/15/24 21:03 10/15/24 22:31 10/15/24 23:01 Temperature 98.1 F 98 F Pulse Rate 81 78 76 Respiratory Rate 20 20 Blood Pressure 108/63 97/64 102/61 Pulse Oximetry 100 Oxygen Delivery Method Room Air 10/15/24 23:17 Temperature 98.1 F Pulse Rate 75 Respiratory Rate 20 Blood Pressure 97/66 Pulse Oximetry Oxygen Delivery Method BMI result Body Mass Index 33.7 Vital signs have been reviewed and appear to be correct. Blood pressure elevated. Heart rate normal. Respiratory rate normal. Temperature normal. Oxygen saturation normal. Appearance: Alert. Oriented X3. No acute distress. Head: Normal external exam. Normocephalic. Atraumatic. No Martinez signs noted. No raccoon eyes noted Eyes: pale mucous membrane, PERRLA. EOMI. Conjunctiva and sclera normal. Eyelids normal. ENT: TM's Normal. Pharynx normal. Uvula midline. Moist mucous membranes. No trismus noted. No drooling noted. No muffled voice noted. Neck: Normal inspection. Neck supple. FROM. No adenopathy. Thyroid Normal. No meningeal signs. No neck mass noted. CVS: Normal heart rate and rhythm. Heart sound normal. No murmurs noted. Pulses normal throughout. Respiratory: No respiratory distress. Painless inspiration. Breath sounds normal. No wheezes/rales/rhonchi noted. Chest nontender. No accessory muscle usage noted or decreased air movement noted. Abdomen: Soft and nontender. Bowel sounds normal in all 4 quadrants. No distention noted. No organomegaly noted. No visible injury noted. Back: No CVA tenderness. Full range of motion noted. Skin: Skin warm and dry. Normal skin color. Normal skin turgor. No rashes/lesions/lacerations noted. Extremities: No lower extremity edema. Extremities exhibit normal range of motion. Extremities nontender. Neuro: Oriented X 3. Cranial nerve exam: II-XII are grossly intact No motor deficit. No sensory deficit. Reflexes normal. Course Course Course Narrative: This is a Rapid Medical Exam performed in triage by Aide Eddy PA-C. Full HPI, ROS and PE to be performed by primary ED provider. came in for evaluation of generalized weakness. PE: pale, NAD, ambulating w/steady gait Plan: EKG, labs, UA Reevaluation(s) Reevaluation #1: hemoglobin has 6.5 required 1 unit of RBCs transfusion in the ED, repeat H&H has improved, patient stated that her menses is getting ophthalmic technologist and ophthalmic technologist now, patient has no symptoms After that transfusion. Time: 00:04 Medical Decision Making Differential Diagnosis Differential Diagnoses: The differential diagnosis associated with the presentation includes ( Anemia, electrolyte derangement, need for blood transfusion.) Admission/Observation Consideration of admission/observation: Escalation of care including admission/observation considered Lab Data MDM Lab Attestation statement: I reviewed the patient's lab results. 10/15/24 23:48 10/15/24 19:27 Labs: Lab Results 10/15/24 10/15/24 10/15/24 Range/Units 19:27 19:31 23:48 WBC 4.9 5.6 (4.8-10.8) X10*3/uL RBC 2.83 L D 3.06 L (4.20-5.50) X10*6/uL Hgb 6.5 L* D 7.6 L (12.0-16.0) g/dl Hct 21.0 L* D 23.5 L (37.0-47.0) % MCV 74.2 L 76.8 L (80.0-98.0) fL MCH 23.0 L 24.8 L (27.0-33.0) pg MCHC 31.0 32.3 (31.0-35.0) g/dl RDW 18.3 H 19.0 H (11.0-16.0) % Plt Count 218 214 (160-400) X10*3/uL MPV 9.0 L 9.2 L (9.4-12.3) fL Immature Gran % (Auto) 0.2 0.2 (0.0-0.4) % Neut % (Auto) 46.1 57.0 (45-73) % Lymph % (Auto) 41.5 H 32.4 (20-40) % [place] % (Auto) 10.0 9.4 (2-11) % Eos % (Auto) 1.2 0.5 (0-4) % Baso % (Auto) 1.0 0.5 (0-2) % Lymph # (Auto) 2.0 1.8 (1.2-4.9) X10*3/uL [place] # (Auto) 0.5 0.5 (0.1-1.2) X10*3/uL Eos # (Auto) 0.1 0.0 (0.0-0.4) X10*3/uL Baso # (Auto) 0.1 0.0 (0.0-0.2) X10*3/uL Abs Immat Gran (auto) 0.01 0.01 (0.00-0.03) X10*3/uL Absolute Neuts (auto) 2.3 3.2 (2.0-8.3) x10*3/uL Absolute Nucleated RBC 0.000 0.000 (0.0-0.012) X10*3/uL Nucleated RBC % (auto) 0.0 0.0 (0.0-0.2) /100WBC PT 11.1 (10.9-12.4) SEC INR 1.0 (0.9-1.1) Sodium 140 (135-145) mmol/L Potassium 3.9 (3.3-5.1) mmol/L Chloride 109 H (96-108) mmol/L Carbon Dioxide 25 (22-29) mmol/L Anion Gap 10 L (12-20) BUN 12 (9-16) mg/dL Creatinine 0.56 (0.5-1.4) mg/dL Estim Creat Clear Calc 130.6 Estimated GFR > 60 Random Glucose 96 (60-115) mg/dL Calcium 8.4 D (8.4-10.2) mg/dL Magnesium 1.9 (1.6-2.6) mg/dL Total Bilirubin 0.2 (0.0-1.0) mg/dL Direct Bilirubin < 0.2 (0.0-0.5) mg/dL AST 21 (5-31) U/L ALT 10 (0-31) U/L Alkaline Phosphatase 77 (39-117) U/L Total Protein 6.7 (6.5-8.0) g/dL Albumin 3.8 (3.5-5.0) g/dL Beta HCG, Quant < 2 mIU/mL Blood Type O Positive Antibody Screen NEGATIVE Crossmatch See Detail Discharge Plan Discharge Clinical Impression: Menorrhagia, Anemia Patient Disposition: Home, Self-Care Instructions: Menorrhagia (ED), Anemia (ED) Prescriptions: No Action ferrous sulfate [Iron (ferrous sulfate)] 325 mg (65 mg iron) Tablet 325 mg PO DAILY medroxyprogesterone [Provera] 10 mg tablet 10 mg PO DAILY Qty: 30 0RF Referrals: Leesa Mcintosh MD [Primary Care Provider] - Print Language: Khmer
--- NOTE | 2024-10-15 18:59 | ECG_ITS ---
Test Reason : fatigue Blood Pressure : */* mmHG Vent. Rate : 71 BPM Atrial Rate : 71 BPM P-R Int : 138 ms QRS Dur : 82 ms QT Int : 412 ms P-R-T Axes : 59 9 14 degrees QTcB Int : 447 ms Normal sinus rhythm Normal ECG When compared with ECG of 29-May-2024 15:21, No significant change was found Referred By: Aide Eddy Electronically Signed By: SUNDAY BOUCHER MD
[2024-10-15 19:31] LABS: MANUAL DIFF FLAG NO
[2024-10-15 19:33] LABS: Basophils Absolute Auto 0.1 X10*3/uL (0.0-0.2); Eosinophils Absolute Auto 0.1 X10*3/uL (0.0-0.4); Eosinophils Percent Auto 1.2 % (0-4); Imm Gran Abs Auto 0.01 X10*3/uL (0.00-0.03); Imm Gran Pct Auto 0.2 % (0.0-0.4); Lymphocytes Percent Auto 41.5 % (20-40); Mean Corpuscular Volume 74.2 fL (80.0-98.0); Monocytes Absolute Auto 0.5 X10*3/uL (0.1-1.2); Neutrophils Absolute Auto 2.3 x10*3/uL (2.0-8.3); Neutrophils Percent Auto 46.1 % (45-73); Platelet Count 218 X10*3/uL (160-400); Red Blood Count 2.83 X10*6/uL (4.20-5.50); Red Cell Distribution Width 18.3 % (11.0-16.0); White Blood Count 4.9 X10*3/uL (4.8-10.8)
[2024-10-15 19:38] LABS: Hemoglobin 6.5 g/dl (12.0-16.0)
[2024-10-15 19:39] LABS: Prothrombin Time 11.1 SEC (10.9-12.4)
[2024-10-15 19:59] LABS: Alanine Aminotransferase 10 U/L (0-31); Albumin Level 3.8 g/dL (3.5-5.0); Alkaline Phosphatase 77 U/L (39-117); Anion Gap 10 (12-20); Aspartate Amino Transferase 21 U/L (5-31); Bilirubin Direct < 0.2 mg/dL (0.0-0.5); Bilirubin Total 0.2 mg/dL (0.0-1.0); Blood Urea Nitrogen 12 mg/dL (9-16); Calcium 8.4 mg/dL (8.4-10.2); Carbon Dioxide 25 mmol/L (22-29); Chloride 109 mmol/L (96-108); Creatinine Clr Calc Pharmacy 130.6; Estimated Glomerular Filt Rate > 60; Glucose Random 96 mg/dL (60-115); Magnesium 1.9 mg/dL (1.6-2.6); Potassium 3.9 mmol/L (3.3-5.1); Sodium 140 mmol/L (135-145); Total Protein 6.7 g/dL (6.5-8.0)
[2024-10-15 20:02] LABS: HCG Quantitative < 2 mIU/mL
--- NOTE | 2024-10-15 21:44 | PC.NURSE ---
Pt tolerating blood transfusion without and issues. Pt resting comfortably on stretcher, callbell in reach and reinforced use.
[2024-10-15 23:54] LABS: MANUAL DIFF FLAG NO
[2024-10-15 23:55] LABS: Basophils Percent Auto 0.5 % (0-2); Eosinophils Percent Auto 0.5 % (0-4); Hematocrit 23.5 % (37.0-47.0); Hemoglobin 7.6 g/dl (12.0-16.0); Imm Gran Abs Auto 0.01 X10*3/uL (0.00-0.03); Imm Gran Pct Auto 0.2 % (0.0-0.4); Lymphocytes Absolute Auto 1.8 X10*3/uL (1.2-4.9); Lymphocytes Percent Auto 32.4 % (20-40); Mean Corpuscular HGB Conc 32.3 g/dl (31.0-35.0); Mean Corpuscular Hemoglobin 24.8 pg (27.0-33.0); Mean Corpuscular Volume 76.8 fL (80.0-98.0); Mean Platelet Volume 9.2 fL (9.4-12.3); Monocytes Absolute Auto 0.5 X10*3/uL (0.1-1.2); Monocytes Percent Auto 9.4 % (2-11); Neutrophils Absolute Auto 3.2 x10*3/uL (2.0-8.3); Platelet Count 214 X10*3/uL (160-400); Red Blood Count 3.06 X10*6/uL (4.20-5.50); White Blood Count 5.6 X10*3/uL (4.8-10.8)
[2024-10-16 00:16] VITALS: BP 97/66; PULSE 75; RESP 20; TEMP 36.7; O2SAT 100
== END 2024-10-16 00:17 | disposition home or self-care (01) ==
PROVIDERS: Physician Assistant; Emergency Provider Emergency Medicine; PCP Family Medicine
DX: D64.9 Anemia, unspecified (principal); N92.0 Excessive and frequent menstruation with regular cycle; R79.89 Other specified abnormal findings of blood chemistry; R10.2 Pelvic and perineal pain; R53.83 Other fatigue; Z79.899 Other long term (current) drug therapy
CPT/HCPCS: 36415; 36430; 80048; 80076; 83735; 84702; 85025; 85610; 86850; 86900; 86901; 86923; 93005; 99284; 99285; P9016

== ENCOUNTER → 2024-10-15 18:59 | Outpatient (BNV) | payer MEDICAID, SELFPAY | PROVIDERS: Emergency Provider Emergency Medicine; PCP Family Medicine; Visit Provider Internal Medicine Cardiovascular Disease | DX: R53.83 Other fatigue (principal) | CPT/HCPCS: 93010 ==

== ENCOUNTER → 2024-11-24 11:00 | Outpatient (BNV) | payer SELFPAY | PROVIDERS: PCP Family Medicine; Visit Provider Internal Medicine | DX: Z12.31 Encounter for screening mammogram for malignant neoplasm of breast (principal) | CPT/HCPCS: 77063; 77067 ==

== ENCOUNTER 2024-11-24 11:01 | Outpatient (REF) | payer SELFPAY ==
--- OUTSIDE RECORDS SUMMARY | 2024-11-24 11:54 | XMS_ITS | Encounter Summary ---
Author Organization [employer] Address [address] [place] [address] Care Team Providers Care Functional Architect Name Role Phone Leesa Mcintosh MD Primary Care Provider [phone] Patricio Rosen MD Unavailable [phone] Oniel Palacios MD Unavailable [phone] Reason for Referral * Consultation (Routine) - Closed Specialty Diagnoses / Procedures Referred By Contac t Referred To Contact Hematology and Oncology Diagnoses Iron deficiency anemia, unspecified iron deficiency anemia type Leesa Mcintosh MD [address] [place] [address] Phone: tel: fax: [facility] Referral ID Status Reason Start Date Expiration Date V isits Requested Visits Authorized [id number] Closed Specialty Services Required 01/17/2024 01/16/2025 10 10 Encounter Details Date Type Department Care Team (Late st Contact Info) Description 01/17/2024 Orders Only [facility] [address] [place], [place] [id number] Leesa Mcintosh MD [address] [place], [place] [id number] Iron deficiency anemia, unspecified iron deficiency anemia [...] as of this encounter Plan of Treatment Upcoming Encounters Date Type Department Care Team (Late st Contact Info) Description 01/30/2025 9:30 AM EDT Office Visit [facility] [address] [place] [address] Leesa Mcintosh MD [address] [place] [address] Scheduled Referrals Name Type Priority Associated Diagnoses Orde r Schedule Referral to Hematology / Oncology Outpatient Referral Routine Iron deficiency anemia, unspecified iron deficiency anemia type Expected: 01/17/2024 (Approximate), Expires: 01/16/2025 documented as of this encounter Visit Diagnoses Diagnosis Iron deficiency anemia, unspecified iron deficiency anemia type- Primary documented in this encounter Care Teams Functional Architect Relationship Specialty Start Date End Date Leesa Mcintosh MD [address] [place] [address] PCP - General Family Medicine 06/04/17 Patricio Rosen MD [address] [place] [id number] Hematology and Oncology 05/14/24 Oniel Palacios MD [address] [place] [address] Drive [address] [place] [address] Gastroenterology 05/14/24 documented as of this encounter
== END 2024-11-24 11:02 | disposition home or self-care (01) ==
LOC: HO.MAMMO 11:01
PROVIDERS: PCP Family Medicine; Visit Provider Family Medicine
DX: Z12.31 Encounter for screening mammogram for malignant neoplasm of breast (principal)
CPT/HCPCS: 77063; 77067

== ENCOUNTER 2025-01-09 08:34 | Emergency (ER) | payer SELFPAY ==
[2025-01-09] VITALS (11 sets, daily range): BP systolic 99–121; BP diastolic 52–72; PULSE 76–88; RESP 14–18; TEMP 36.6–36.9; O2SAT 99–100; BMI 33.7
--- NOTE | 2025-01-09 08:53 | ECG_ITS ---
Test Reason : dizziness Blood Pressure : */* mmHG Vent. Rate : 84 BPM Atrial Rate : 84 BPM P-R Int : 128 ms QRS Dur : 84 ms QT Int : 376 ms P-R-T Axes : 54 14 26 degrees QTcB Int : 444 ms Normal sinus rhythm Low voltage QRS Borderline ECG When compared with ECG of 15-Oct-2024 19:12, No significant change was found Referred By: Generic ED Physician Electronically Signed By: Louie Long
--- NOTE | 2025-01-09 09:05 | ED_ITS ---
HPI - General Adult General Chief complaint: General Medical Stated complaint: dizzy sob Time Seen by Provider: 01/09/25 09:04 Source: patient, RN notes reviewed and old records reviewed Mode of arrival: ambulatory Limitations: no limitations History of Present Illness ED Provider: Arina ROBERTS narrative: Patient is a 49-year-old female with history of AUB, GENESIS, has required blood transfusions in the past presenting with a few days of lightheadedness, fatigue. LMP was 2 weeks ago, denies current vaginal bleeding. States symptoms feel similar to when her H&H has been low in the past. Denies chest pain, palpitations, dyspnea. Denies any hematuria, hematochezia, melena. complaint: lightheaded Onset (ago): day(s) Related Data Home Medications ?Medication ?Instructions ?Recorded ?Confirmed ferrous sulfate 325 mg (65 mg 325 mg PO DAILY 10/22/20 10/22/20 iron) tablet (Iron (ferrous sulfate)) Previous Rx's ?Medication ?Instructions ?Recorded medroxyprogesterone 10 mg tablet 10 mg PO DAILY #30 ta bs 05/29/24 (Provera) Allergies Allergy/AdvReac Type Severity Reaction Status Date / Time No Known Allergies Allergy Verified 01/09/25 08:51 Review of Systems 2 Review of Systems: As per HPI Yes all other systems are reviewed and are negative Constitutional: Constitutional: Reports as per HPI PMFSH Past Medical History Medical History Anemia Family History Family History Mother Breast cancer Maternal Aunt Breast cancer Maternal Grandmother Breast cancer Maternal Grandfather Skin cancer Social History Social History Alcohol intake: never Patient Tobacco Use Status: Never used Tobacco Smoked in Last 30 Days: No Use of substances other than those prescribed or required for medical reasons: No Advance Directives: No Advance Directives Information Provided: Yes Do you have a plan to hurt others: No Plan Patient : No Physical Exam ED Vital Signs: Vital Signs - 24 hr 01/09/25 08:50 01/09/25 10:19 01/09/25 10:36 Temperature 98 F 98.5 F 98.5 F Pulse Rate 86 84 84 Respiratory Rate 18 16 16 Blood Pressure 99/54 L 99/52 L 99/52 L Pulse Oximetry 99 99 Oxygen Delivery Method Room Air 01/09/25 10:42 01/09/25 14:41 01/09/25 14:44 Temperature 98.2 F 98.3 F Pulse Rate 88 79 78 Respiratory Rate 16 18 14 Blood Pressure 100/52 L 105/63 105/63 Pulse Oximetry 100 Oxygen Delivery Method Room Air 01/09/25 15:06 01/09/25 15:14 01/09/25 17:27 Temperature 98.2 F 98.2 F Pulse Rate 86 84 76 Respiratory Rate 14 18 16 Blood Pressure 105/65 102/58 L 121/72 Pulse Oximetry Oxygen Delivery Method 01/09/25 17:42 Temperature 98.2 F Pulse Rate 76 Respiratory Rate 16 Blood Pressure 121/72 Pulse Oximetry Oxygen Delivery Method BMI result Body Mass Index 33.7 Vital signs have been reviewed and appear to be correct. Blood pressure slightly low. Heart rate normal. Respiratory rate normal. Temperature normal. Oxygen saturation normal. Const General: cooperative and no acute distress Nutritional Appearance: average body habitus Orientation/consciousness: oriented to person, oriented to place, oriented to time and patient oriented x3 Limitations: no limitations HENMT Head: Yes normocephalic and Yes atraumatic Ears: external ears normal General nose exam: Normal external nose present Face and sinus: Yes face symmetric Mouth: oropharynx normal and moist mucous membranes Throat: Yes uvula midline Eyes Pupils: Equal, round and reactive pupils present Neck Neck: Yes normal visual inspection and Yes supple Resp Effort & Inspection: normal respiratory effort and able to speak in complete sentences Auscultation: clear to auscultation bilaterally Cardio Rate: regular rate Rhythm: regular rhythm Heart sounds: S1 normal heart sound present and S2 normal heart sound present GI Palpation (GI): Soft to palpation and nontender Auscultation: normoactive bowel sounds General: Yes no CVA tenderness Back/Spine/Pelvis Back: no CVA tenderness Skin General skin exam: elasticity normal, turgor normal and pallor Neuro General: oriented to person, oriented to place, oriented to time, patient oriented x3, moves all extremities, no focal motor deficits and CN's II-XI intact bilaterally Cranial nerves: Yes Equal, round and reactive pupils present Cognition (Neuro): normal cognition Extrem General: Yes full ROM, Yes no pedal edema and Yes no calf tenderness Psych Mental Status: mental status grossly normal Affect: normal affect Thought process: Normal thought process present Medical Decision Making Medical Decision Making [facility] Narrative: Patient is a 49-year-old female with history of AUB, GENESIS, has required blood transfusions in the past presenting with a few days of lightheadedness, fatigue. On exam patient is awake, A+Ox3, VS WNL, afebrile, normal neurological exam without focal deficits, physical exam findings as above. Given reported symptoms and physical exam findings, initial differential includes but is not limited to anemia, electrolyte abnormality, dehydration. Labs notable for anemia with H&H of 6.0/22.7, no significant electrolyte abnormalities. Given that patient is symptomatic, will order 2 units RBCs, written consent obtained. 2 units transfused without incident. A repeat CBC reveals improved H&H of 8.5/28.7. Patient reports improvement in symptoms. Feel she is stable for discharge home. Advised follow up with PCP for repeat labs within the next 48 hours. Return precautions discussed at bedside. Patient verbalized understanding of and agreement with plan. Differential Diagnosis Differential Diagnoses: The differential diagnosis associated with the presentation includes As per [facility] Admission/Observation Consideration of admission/observation: Escalation of care including admission/observation considered Patient would have been admitted to the hospital had their clinical presentation warranted hospital admission. Lab Data [facility] Lab Attestation statement: I reviewed the patient's lab results. as per [facility] 01/09/25 17:39 01/09/25 09:06 Labs: Lab Results 01/09/25 01/09/25 Range/Units 09:06 17:39 WBC 2.9 L 6.1 (4.8-10.8) X10*3/uL RBC 3.52 L 4.08 L (4.20-5.50) X10*6/uL Hgb 6.0 L* D 8.5 L D (12.0-16.0) g/dl Hct 22.7 L 28.7 L D (37.0-47.0) % MCV 64.5 L 70.3 L D (80.0-98.0) fL MCH 17.0 L 20.8 L (27.0-33.0) pg MCHC 26.4 L 29.6 L (31.0-35.0) g/dl RDW 18.5 H 23.2 H (11.0-16.0) % Plt Count 256 256 (160-400) X10*3/uL MPV 9.2 L 9.3 L (9.4-12.3) fL Immature Gran % (Auto) 0.3 0.2 (0.0-0.4) % Neut % (Auto) 54.8 65.5 (45-73) % Lymph % (Auto) 30.3 22.5 (20-40) % [place] % (Auto) 11.5 H 10.0 (2-11) % Eos % (Auto) 1.4 0.8 (0-4) % Baso % (Auto) 1.7 1.0 (0-2) % Lymph # (Auto) 0.9 L 1.4 (1.2-4.9) X10*3/uL [place] # (Auto) 0.3 0.6 (0.1-1.2) X10*3/uL Eos # (Auto) 0.0 0.1 (0.0-0.4) X10*3/uL Baso # (Auto) 0.1 0.1 (0.0-0.2) X10*3/uL Abs Immat Gran (auto) 0.01 0.01 (0.00-0.03) X10*3/uL Absolute Neuts (auto) 1.6 L 4.0 (2.0-8.3) x10*3/uL Absolute Nucleated RBC 0.000 0.000 (0.0-0.012) X10*3/uL Nucleated RBC % (auto) 0.0 0.0 (0.0-0.2) /100WBC Sodium 136 (135-145) mmol/L Potassium 3.9 (3.3-5.1) mmol/L Chloride 108 (96-108) mmol/L Carbon Dioxide 22 (22-29) mmol/L Anion Gap 10 L (12-20) BUN 8 L (9-16) mg/dL Creatinine 0.57 (0.5-1.4) mg/dL Estim Creat Clear Calc 126.9 Estimated GFR > 60 Random Glucose 120 H (60-115) mg/dL Calcium 8.8 (8.4-10.2) mg/dL Troponin I High Sens < 2.7 (<3.5-17.0) ng/L Blood Type O Positive Antibody Screen NEGATIVE Crossmatch See Detail External Record Review External record reviewed: Inpatient record, Office record and Outpatient record Critical Care Time Critical Care Time Critical Care Time: Yes Total Critical Care Time: 40 Attestation: I have personally provided critical care time exclusive of time spent on separately billable procedures. Time includes review of lab data, radiology results, discussion with consultants, and monitoring for potential decompensation. Intervention performed as documented. Discharge Plan Discharge Clinical Impression: Iron deficiency anemia Patient Disposition: Home, Self-Care Instructions: Anemia (ED), Iron Rich Diet (ED) Additional Instructions: You were evaluated in the emergency department today for weakness and dizziness. Your labs showed evidence of anemia. You were given 2 units of red blood cells. Your a globin and hematocrit improved after the transfusions. We recommend that you follow-up with your primary care provider for repeat labs within the next 2 days. Return to the emergency department if you develop worsening dizziness or lightheadedness, chest pain or shortness of breath, palpitations, fainting, blood in your urine, blood in your stool, or any other new or concerning symptoms. Prescriptions: No Action ferrous sulfate [Iron (ferrous sulfate)] 325 mg (65 mg iron) Tablet 325 mg PO DAILY medroxyprogesterone [Provera] 10 mg tablet 10 mg PO DAILY Qty: 30 0RF Print Language: Slovak
[2025-01-09 09:15] LABS: Hematocrit 22.7 % (37.0-47.0); Imm Gran Abs Auto 0.01 X10*3/uL (0.00-0.03); Imm Gran Pct Auto 0.3 % (0.0-0.4); Lymphocytes Absolute Auto 0.9 X10*3/uL (1.2-4.9); MANUAL DIFF FLAG NO; Mean Corpuscular HGB Conc 26.4 g/dl (31.0-35.0); Mean Corpuscular Hemoglobin 17.0 pg (27.0-33.0); NRBC Abs Auto 0.000 X10*3/uL (0.0-0.012); NRBC Pct Auto 0.0 /100WBC (0.0-0.2); Platelet Count 256 X10*3/uL (160-400); Red Blood Count 3.52 X10*6/uL (4.20-5.50); White Blood Count 2.9 X10*3/uL (4.8-10.8)
[2025-01-09 09:16] LABS: Mean Corpuscular Volume 64.5 fL (80.0-98.0)
[2025-01-09 09:18] LABS: Hemoglobin 6.0 g/dl (12.0-16.0)
--- OUTSIDE RECORDS SUMMARY | 2025-01-09 09:25 | XMS_ITS | Encounter Summary ---
Author Organization [employer] Address [address] [facility] [address] [place] [address] Care Team Providers Care [employer] Installer Name Role Phone Leesa Mcintosh MD Primary Care Provider [phone] Patricio Rosen MD Unavailable [phone] Oniel Palacios MD Unavailable [phone] Reason for Referral * Consultation (Routine) - Closed Specialty Diagnoses / Procedures Referred By Contac t Referred To Contact Hematology and Oncology Diagnoses Iron deficiency anemia, unspecified iron deficiency anemia type Leesa Mcintosh MD [address] [place] [address] Phone: tel: fax: [facility] Referral ID Status Reason Start Date Expiration Date V isits Requested Visits Authorized [id number] Closed Specialty Services Required 01/17/2024 01/16/2025 10 10 Encounter Details Date Type Department Care Team (Late st Contact Info) Description 01/17/2024 Orders Only [facility] [address], [place] [phone] Leesa Mcintosh MD [address] [place] [address], [place] [id number] Iron deficiency anemia, unspecified iron deficiency anemia [...] Description 01/30/2025 9:30 AM EDT Office Visit [facility] [address] [place] [address] Leesa Mcintosh MD [address] [place] [address] Scheduled Referrals Name Type Priority Associated Diagnoses Orde r Schedule Referral to Hematology / Oncology Outpatient Referral Routine Iron deficiency anemia, unspecified iron deficiency anemia type Expected: 01/17/2024 (Approximate), Expires: 01/16/2025 documented as of this encounter Visit Diagnoses Diagnosis Iron deficiency anemia, unspecified iron deficiency anemia type- Primary documented in this encounter Care Teams [employer]er Relationship Specialty Start Date End Date Leesa Mcintosh MD [address] [place] [address] PCP - General Family Medicine 06/04/17 Patricio Rosen MD [address] [place] [id number] Hematology and Oncology 05/14/24 Oniel Palacios MD [address] [place] [address] Drive [address] [place] [address] Gastroenterology 05/14/24 documented as of this encounter
[2025-01-09 09:36] LABS: Anion Gap 10 (12-20); Blood Urea Nitrogen 8 mg/dL (9-16); Calcium 8.8 mg/dL (8.4-10.2); Carbon Dioxide 22 mmol/L (22-29); Chloride 108 mmol/L (96-108); Creatinine Clr Calc Pharmacy 126.9; Estimated Glomerular Filt Rate > 60; Potassium 3.9 mmol/L (3.3-5.1); Sodium 136 mmol/L (135-145)
[2025-01-09 09:45] LABS: Troponin-I High Sensitivity < 2.7 ng/L (<3.5-17.0)
--- NOTE | 2025-01-09 10:38 | PC.NURSE ---
Blood transfusion begun per orders; vss; no adverse reaction noted at this time; pt has no complaints
--- NOTE | 2025-01-09 17:41 | PC.NURSE ---
RBC's completed; repeat labs obtained/results pending; pt's vss and pt has no concerns at this time
[2025-01-09 17:42] LABS: MANUAL DIFF FLAG NO
[2025-01-09 17:43] LABS: Hematocrit 28.7 % (37.0-47.0); Hemoglobin 8.5 g/dl (12.0-16.0); Imm Gran Abs Auto 0.01 X10*3/uL (0.00-0.03); Imm Gran Pct Auto 0.2 % (0.0-0.4); Lymphocytes Absolute Auto 1.4 X10*3/uL (1.2-4.9); Mean Corpuscular HGB Conc 29.6 g/dl (31.0-35.0); Mean Corpuscular Hemoglobin 20.8 pg (27.0-33.0); Mean Corpuscular Volume 70.3 fL (80.0-98.0); NRBC Abs Auto 0.000 X10*3/uL (0.0-0.012); NRBC Pct Auto 0.0 /100WBC (0.0-0.2); Platelet Count 256 X10*3/uL (160-400); Red Blood Count 4.08 X10*6/uL (4.20-5.50); White Blood Count 6.1 X10*3/uL (4.8-10.8)
== END 2025-01-09 18:24 | disposition home or self-care (01) ==
PROVIDERS: Registered Nurse Emergency; Emergency Provider Emergency Medicine; PCP Family Medicine
DX: D64.9 Anemia, unspecified (principal); R42 Dizziness and giddiness; R06.02 Shortness of breath; R94.31 Abnormal electrocardiogram [ECG] [EKG]; Z79.899 Other long term (current) drug therapy
CPT/HCPCS: 36415; 36430; 80048; 84484; 85025; 86850; 86900; 86901; 86923; 93005; 99284; 99285; P9016

== ENCOUNTER → 2025-01-09 08:53 | Outpatient (BNV) | payer SELFPAY | PROVIDERS: Emergency Provider Emergency Medicine; PCP Family Medicine; Visit Provider Internal Medicine Cardiovascular Disease | DX: R42 Dizziness and giddiness (principal) | CPT/HCPCS: 93010 ==

== ENCOUNTER 2025-04-15 19:18 | Emergency (ER) | payer MEDICAID, SELFPAY ==
--- NOTE | ~2025-04-15 | US_ITS ---
CLINICAL HISTORY: heavy vaginal bleeding US pelvis transabdominal and transvaginal Comparison: US - US PELVIC AND TRANSVAGINAL - 05/29/24 19:25 EST Findings: Transabdominal scanning performed for overall anatomy. Transvaginal scanning performed for additional detail. Uterus measures 10.8 cm x 5.5 cm x 6.3 cm and is anteverted. A 1.4 cm x 1.1 cm x 1.2 cm and a 1.8 cm x 0.9 cm x 1.4 cm fibroids are visualized. Endometrium 5 mm thickness. No lesions. Right ovary measures 3 cm x 2.5 cm x 3 cm and contains a 2.7 cm x 1.7 cm x 2.3 cm cyst. Left ovary not visualized. No free fluid. IMPRESSION: 1. No evidence of endometrial thickening. Endometrium measures 5 mm. 2. Small fibroids. 3. Right ovarian 2.7 cm cyst. Left ovary not visualized. This document has been electronically signed by: Smitha Schafer MD on 04/16/2025 00:01:47
[2025-04-15 19:37] VITALS: BP 110/57; PULSE 87; RESP 20; TEMP 36.3; O2SAT 100; BMI 31.9
--- NOTE | 2025-04-15 19:39 | ED.GENADULT ---
HPI - General Adult General Chief complaint: Weakness Stated complaint: ? got to get transfused Time Seen by Provider: 04/15/25 20:46 Source: patient Mode of arrival: ambulatory Limitations: no limitations History of Present Illness ED Provider: Dr. Madrigal HPI narrative: 49-year-old female history of iron-deficiency anemia presented hospital today for lightheadedness fatigue and vaginal bleeding. Patient stated that she is currently going menopause. Her periods are irregular. Recent. Is 7 days ago. Is lasting longer than usual her periods are normally lasting up to 3 days. She noticed that her periods has light and up be since yesterday. However she has been feeling more dizzy and fatigued and lightheaded. Patient presents to the ER for further evaluation. Denies any dark rectal stool denies any blood in her stool. Related Data Home Medications ?Medication ?Instructions ?Recorded ?Confirmed ferrous sulfate 325 mg (65 mg 325 mg PO DAILY 10/22/20 10/22/20 iron) tablet (Iron (ferrous sulfate)) Previous Rx's ?Medication ?Instructions ?Recorded medroxyprogesterone 10 mg tablet 10 mg PO DAILY #30 tabs 05/29/24 (Provera) ondansetron 4 mg disintegrating 4 mg PO Q6H PRN nausea and 04/16/25 tablet vomiting #15 tabs tranexamic acid 650 mg tablet 1,300 mg (2 x 650 mg) PO TID 5 04/16/25 days #30 tabs Allergies Allergy/AdvReac Type Severity Reaction Status Date / Time No Known Allergies Allergy Verified 04/15/25 19:39 Review of Systems Review of Systems: Pertinent review of systems as mentioned in HPI. All other system otherwise negative. [facility] Past Medical History [facility] Narrative: Iron-deficiency anemia Medical History Anemia Family History Family History Mother Breast cancer Maternal Aunt Breast cancer Maternal Grandmother Breast cancer Maternal Grandfather Skin cancer Social History Social History Alcohol intake: never Patient Tobacco Use Status: Never used Tobacco Advance Directives: No Advance Directives Information Provided: No Physical Exam ED Exam Exam: General: Pleasant, no distress, interacting appropriately Head: Normacephalic, atraumatic ENT: oral mucosa moist, neck supple, no tracheal deviation, pale conjunctiva, pale lips Cardiovascular: regular rate, regular rhythm, no murmurs, rubbing, gallops Respiratory: CTAB, no wheeze, rales, rhonchi Gastrointestinal: Soft, non distended, non tender, non guarding Neurological: Awake and alert, no facial droop noted Skin: Warm and dry Psychiatric: Appropriate mood and thoughts Vital Signs: Vital Signs - 24 hr 04/15/25 19:37 04/15/25 20:58 04/15/25 21:45 Temperature 97.4 F 98.0 F 98.1 F Pulse Rate 87 84 86 Respiratory Rate 20 18 18 Blood Pressure 110/57 L 110/46 L 108/41 L Pulse Oximetry 100 99 Oxygen Delivery Method Room Air Room Air 04/15/25 21:54 04/15/25 22:00 04/16/25 00:18 Temperature 98.1 F 97.7 F 98.1 F Pulse Rate 82 81 75 Respiratory Rate 18 18 14 Blood Pressure 103/56 L 107/53 L 104/47 L Pulse Oximetry 98 Oxygen Delivery Method Room Air 04/16/25 00:47 04/16/25 01:01 04/16/25 01:05 Temperature 98.1 F 97.8 F Pulse Rate 81 74 74 Respiratory Rate 15 15 Blood Pressure 86/40 L 92/52 L 95/50 L Pulse Oximetry Oxygen Delivery Method 04/16/25 03:08 04/16/25 03:42 04/16/25 05:14 Temperature 97.9 F 97.7 F Pulse Rate 72 71 Respiratory Rate 18 19 Blood Pressure 106/66 119/71 104/54 L Pulse Oximetry Oxygen Delivery Method 04/16/25 05:27 04/16/25 05:30 Temperature 97.6 F Pulse Rate 73 Respiratory Rate 16 Blood Pressure 113/70 Pulse Oximetry 98 Oxygen Delivery Method Room Air BMI result Body Mass Index 31.9 Course Course Course Narrative: This is a Rapid Medical Exam performed in triage by Aide Eddy PA-C. Full HPI, ROS and PE to be performed by primary ED provider. 49-year-old female with past medical history anemia, abnormal uterine bleeding presenting to the ED complaining of vaginal bleeding x7 days with clots. Suspect she needs a transfusion - has had them in the past for similar events. Reports associated fatigue/weakness and headache PE: NAD/nontoxic appearing, ambulating with steady gait Plan: labs, UA Medications Administered Discontinued Medications Generic Name Dose Route Start Last Admin Trade Name Cindy PRN Reason Stop Dose Admin Tranexamic Acid 1,000 mg/ 60 mls @ 360 mls/hr 04/15/25 22:05 04/15/25 23:00 Sodium Chloride IV 04/15/25 22:14 Infused ONCE ONE Infusion Medical Decision Making Medical Decision Making [facility] Narrative: 49-year-old female history of iron-deficiency anemia presented hospital today for low hemoglobin and symptomatic anemia. Patient has a hemoglobin of 5. We will plan to transfuse the patient. Patient consented for blood transfusion. Discussed with the patient given her symptoms we will plan to admit the patient to the hospital. 2 units of PRBC ordered for the patient. She does not have any hypotension or tachycardic indicative for hemorrhagic shock. I did discuss the patient's about transvaginal ultrasound. Patient is a bit hesitant about obtain this ultrasound. However I discussed with her that the hospitalist recommend further evaluation of her vaginal bleeding at this time. And this is likely a next step to identify any obvious source of bleeding for her uterine bleed. Did discuss about given her TXA to help with the bleeding. Patient is agreeable to this. Discussed the case with the hospitalist who is recommending OBGYN involvement in his case. Patient will be signed out to oncoming provider pending ultrasound results. She is hemodynamically stable at this time. I received sign-out from my colleague Dr. Morales -OBGYN is not on-call today Patient has had multiple episodes of heavy vaginal bleeding in the past, low hemoglobin requiring blood transfusions. On pelvic exam, there is small to moderate amount of blood, no active bleeding through the cervical os Pelvic ultrasound shows no evidence of endometrial thickening, endometrium measures 5 mm, small fibroids, right ovarian cyst 2.7 cm. Blood transfusion in progress After the initial blood transfusion of 2 units, patient's hemoglobin improved to 7.3. Patient states that she is feeling a bit better, however, patient's baseline is around 8. I discussed with the patient that ideally she should get an additional unit of blood, patient agreeable. After the initial dose of IV tranexamic acid, patient states that the vaginal bleeding has significantly decreased. Patient's neck is dose of tranexamic acid 1300 mg is due at 07:00. Current blood pressure 110 systolic, no fever, heart rate in the low 70s I have personally provided 50 minutes of critical care time. Time includes review of lab data, radiology results, discussion with consultants, and monitoring for potential decompensation. Intervention performed as documented. Differential Diagnosis Differential Diagnoses: The differential diagnosis associated with the presentation includes Uterine bleed, hemorrhagic shock, symptomatic anemia Admission/Observation Consideration of admission/observation: Escalation of care including admission/observation considered (Given patient's low hemoglobin and history of bleeding, observation/admission was considered) Lab Data MDM Lab Attestation statement: I reviewed the patient's lab results. 04/16/25 03:55 04/15/25 20:08 Labs: Lab Results 04/15/25 04/16/25 Range/Units 20:08 03:55 WBC 4.5 L (4.8-10.8) X10*3/uL RBC 2.89 L D (4.20-5.50) X10*6/uL Hgb 5.0 L* D 7.3 L D (12.0-16.0) g/dl Hct 19.0 L* D 25.0 L D (37.0-47.0) % MCV 65.7 L (80.0-98.0) fL MCH 17.3 L (27.0-33.0) pg MCHC 26.3 L (31.0-35.0) g/dl RDW 17.8 H (11.0-16.0) % Plt Count 291 (160-400) X10*3/uL MPV 9.5 (9.4-12.3) fL Immature Gran % (Auto) 0.2 (0.0-0.4) % Neut % (Auto) 45.8 (45-73) % Lymph % (Auto) 40.3 H (20-40) % [place] % (Auto) 11.7 H (2-11) % Eos % (Auto) 0.7 (0-4) % Baso % (Auto) 1.3 (0-2) % Lymph # (Auto) 1.8 (1.2-4.9) X10*3/uL [place] # (Auto) 0.5 (0.1-1.2) X10*3/uL Eos # (Auto) 0.0 (0.0-0.4) X10*3/uL Baso # (Auto) 0.1 (0.0-0.2) X10*3/uL Abs Immat Gran (auto) 0.01 (0.00-0.03) X10*3/uL Absolute Neuts (auto) 2.1 (2.0-8.3) x10*3/uL Absolute Nucleated RBC 0.000 (0.0-0.012) X10*3/uL Nucleated RBC % (auto) 0.0 (0.0-0.2) /100WBC Sodium 139 (135-145) mmol/L Potassium 3.4 (3.3-5.1) mmol/L Chloride 111 H (96-108) mmol/L Carbon Dioxide 20 L (22-29) mmol/L Anion Gap 11 L (12-20) BUN 11 (9-16) mg/dL Creatinine 0.59 (0.5-1.4) mg/dL Estim Creat Clear Calc 119.3 Estimated GFR > 60 Random Glucose 116 H (60-115) mg/dL Calcium 8.6 (8.4-10.2) mg/dL Magnesium 2.0 (1.6-2.6) mg/dL Total Bilirubin 0.2 (0.0-1.0) mg/dL Direct Bilirubin < 0.2 (0.0-0.5) mg/dL AST 21 (5-31) U/L ALT 11 (0-31) U/L Alkaline Phosphatase 78 (39-117) U/L Total Protein 6.8 (6.5-8.0) g/dL Albumin 4.1 (3.5-5.0) g/dL Beta HCG, Quant < 2 mIU/mL Blood Type O Positive Antibody Screen NEGATIVE Crossmatch See Detail Independent Interpretation I performed an independent interpretation of an: Ultrasound Radiology Impression Discussion of test interpretation with radiology: I have reviewed the radiologist's reading. Radiologist Impression: Transabdominal scanning performed for overall anatomy. Transvaginal scanning performed for additional detail. Uterus measures 10.8 cm x 5.5 cm x 6.3 cm and is anteverted. A 1.4 cm x 1.1 cm x 1.2 cm and a 1.8 cm x 0.9 cm x 1.4 cm fibroids are visualized. Endometrium 5 mm thickness. No lesions. Right ovary measures 3 cm x 2.5 cm x 3 cm and contains a 2.7 cm x 1.7 cm x 2.3 cm cyst. Left ovary not visualized. No free fluid. IMPRESSION: 1. No evidence of endometrial thickening. Endometrium measures 5 mm. 2. Small fibroids. 3. Right ovarian 2.7 cm cyst. Left ovary not visualized. Critical Care Time Critical Care Time Critical Care Time: Yes Total Critical Care Time: 40 Attestation: Time is exclusive of separately billable procedures. Time includes: direct patient care, patient reassessment, coordination of patient care, interpretation of data (laboratory data, pulse oximetry, arterial blood gases and chest xrays), review of patient's medical records, medical consultation and documentation of patient care. Procedures excluded from critical care time: central intravenous line placement and electrocardiography. Discharge Plan Discharge Clinical Impression: Iron deficiency anemia, Abnormal uterine bleeding (AUB) Patient Disposition: Home, Self-Care Instructions: Abnormal (Dysfunctional) Uterine Bleeding (ED), Anemia (ED) Additional Instructions: Please follow-up with your primary care physician tomorrow. If you have any worsening or new symptoms, please return to the emergency room or call 911 Prescriptions: New tranexamic acid 650 mg tablet 1,300 mg PO TID 5 Days Qty: 30 0RF ondansetron 4 mg tablet,disintegrating 4 mg PO Q6H PRN (Reason: nausea and vomiting) Qty: 15 0RF No Action ferrous sulfate [Iron (ferrous sulfate)] 325 mg (65 mg iron) Tablet 325 mg PO DAILY medroxyprogesterone [Provera] 10 mg tablet 10 mg PO DAILY Qty: 30 0RF Referrals: Mo Horan MD [Physician, [employer]] Print Language: Vietnamese
[2025-04-15 20:19] LABS: MANUAL DIFF FLAG NO
[2025-04-15 20:22] LABS: Imm Gran Abs Auto 0.01 X10*3/uL (0.00-0.03); Imm Gran Pct Auto 0.2 % (0.0-0.4); Lymphocytes Absolute Auto 1.8 X10*3/uL (1.2-4.9); Mean Corpuscular HGB Conc 26.3 g/dl (31.0-35.0); Mean Corpuscular Hemoglobin 17.3 pg (27.0-33.0); Mean Corpuscular Volume 65.7 fL (80.0-98.0); NRBC Abs Auto 0.000 X10*3/uL (0.0-0.012); NRBC Pct Auto 0.0 /100WBC (0.0-0.2); Platelet Count 291 X10*3/uL (160-400); Red Blood Count 2.89 X10*6/uL (4.20-5.50); White Blood Count 4.5 X10*3/uL (4.8-10.8)
[2025-04-15 20:43] LABS: Hematocrit 19.0 % (37.0-47.0); Hemoglobin 5.0 g/dl (12.0-16.0)
[2025-04-15 20:56] LABS: Alanine Aminotransferase 11 U/L (0-31); Albumin Level 4.1 g/dL (3.5-5.0); Alkaline Phosphatase 78 U/L (39-117); Anion Gap 11 (12-20); Aspartate Amino Transferase 21 U/L (5-31); Blood Urea Nitrogen 11 mg/dL (9-16); Calcium 8.6 mg/dL (8.4-10.2); Carbon Dioxide 20 mmol/L (22-29); Chloride 111 mmol/L (96-108); Creatinine Clr Calc Pharmacy 119.3; Estimated Glomerular Filt Rate > 60; Magnesium 2.0 mg/dL (1.6-2.6); Potassium 3.4 mmol/L (3.3-5.1); Sodium 139 mmol/L (135-145); Total Protein 6.8 g/dL (6.5-8.0)
[2025-04-15 20:58] VITALS: BP 110/46; PULSE 84; RESP 18; TEMP 36.7; O2SAT 99
--- NOTE | 2025-04-15 21:03 | PC.NURSE ---
18 g IV placed in right AC
--- NOTE | 2025-04-15 21:27 | PC.NURSE ---
20 g IV placed in left AC
[2025-04-15 21:45] VITALS: BP 108/41; PULSE 86; RESP 18; TEMP 36.7
[2025-04-15 21:54] VITALS: BP 103/56; PULSE 82; RESP 18; TEMP 36.7; O2SAT 98
[2025-04-15 22:00] VITALS: BP 107/53; PULSE 81; RESP 18; TEMP 36.5
--- NOTE | 2025-04-15 22:03 | PC.NURSE ---
15 min vitals all WNL after starting blood transfusion. No symptoms of any reaction at this time.
[2025-04-15] MEDS: Tranexamic Acid 1,000 MG in 0.9 % Sodium Chloride 50 ML 360 MG IV (22:49)
[2025-04-16] VITALS (12 sets, daily range): BP systolic 86–121; BP diastolic 40–71; PULSE 71–81; RESP 14–19; TEMP 36.4–36.7; O2SAT 98–100
--- NOTE | 2025-04-16 00:55 | PC.NURSE ---
Addendum entered by Missy Sorto RN 04/16/25 00:57: in 2 hours, 1 pad changed. Original Note: MD made aware of BP, pt denies abnormal sx other than feeling tired. axox4 speaking full clear sentences. per MD to put pt in trendelenberg position and continue with blood transfusion, no others orders received.
--- NOTE | 2025-04-16 03:06 | PC.NURSE ---
Pt ambulated to bathroom with standby assist. Small amount of blood on pad, notified.
--- NOTE | 2025-04-16 03:57 | PC.NURSE ---
2nd blood transfusion complete, repeat H&H drawn and sent to lab. Pt reports feeling better, still just very tired.
[2025-04-16 04:01] LABS: Hematocrit 25.0 % (37.0-47.0); Hemoglobin 7.3 g/dl (12.0-16.0)
--- OUTSIDE RECORDS SUMMARY | 2025-04-16 05:19 | XMS_ITS | Encounter Summary ---
Author Organization [employer] Address [address] [place] [id number] Care Team Providers Care Forest And Conservation Worker Name Role Phone Leesa Mcintosh MD Primary Care Provider [phone] Patricio Rosen MD Unavailable [phone] Oniel Palacios MD Unavailable [phone] Reason for Referral * Consultation (Routine) - Closed Specialty Diagnoses / Procedures Referred By Contac t Referred To Contact Obstetrics and Gynecology Diagnoses Iron deficiency anemia, unspecified iron deficiency anemia type Leesa Mcintosh MD [address] [place] [address] Phone: tel: fax: [address] Phone: tel: fax: Referral ID Status Reason Start Date Expiration Date V isits Requested Visits Authorized [id number] Closed Specialty Services Required 03/13/2024 03/13/2025 9 9 Encounter Details Date Type Department Care Team (Late st Contact Info) Description 03/13/2024 Orders Only [facility] [address] [place], [place] [phone] Leesa Mcintosh MD [address] [place], [place] [phone] Iron deficiency anemia, unspecified iron deficiency anemia [...] AM EDT documented as of this encounter Functional Status * Over the past 2 weeks, how often have you been bothered by any of the following problems? Question Answer Date of Assessment Author Patient Health Questionnaire-2 Score 0 03/13/2024 11:01 AM EDT Nia Marie MA * Over the past 2 weeks, how often have you been bothered by any of the following problems? Question Answer Date of Assessment Author Little interest or pleasure in doing things Not at all 03/13/2024 11:01 AM Nia Bedoya [place] Feeling down, depressed, or hopeless Not at all 03/13/2024 11:01 AM Nia Bedoya [place] Trouble falling or staying asleep, or sleeping too much Not at all 03/13/2024 11:01 AM BHARATHIT Nia Morris [place] Feeling tired or having little energy Not at all 03/13/2024 11:01 AM Nia Bedoya MA Poor appetite or overeating Not at all 03/13/2024 11 :01 AM Nia Bedoya MA Feeling bad about yourself - or that you are a failure or have let yourself or your family down Not at all 03/13/2024 11:01 AM Nia Bedoya [place] Trouble concentrating on things, such as reading the newspaper or watching television Not at all 03/13/2024 11:01 AM Nia Bedoya MA Moving or speaking so slowly that other people could have noticed? Or the opposite - being so fidgety or restless that you have been moving around a lot more than usual. Not at all 03/13/2024 11:01 AM Nia Macias MA Thoughts that you would be better off or hurting yourself in some way Not at all 03/13/2024 11:01 AM Nia Bedoya MA Patient Health Questionnaire-9 Score 0 03/13/2024 11:01 AM Nia Sheikh [place] documented as of this encounter Plan of [...] documented as of this encounter Care Teams Forest And Conservation Worker Relationship Specialty Start Date End Date Leesa Mcintosh MD [address] [place] [address] PCP - General Family Medicine 06/04/17 Patricio Rosen MD [address] [place] [address] Hematology and Oncology 05/14/24 Oniel Palacios MD [address]rd [place] [address] Gastroenterology 05/14/24 documented as of this encounter
--- OUTSIDE RECORDS SUMMARY | 2025-04-16 05:19 | XMS_ITS | Encounter Summary ---
Author Organization [employer] Address [address] [facility] [address] [place] [address] Care Team Providers Care Bar Machine Operator Production Name Role Phone Leesa Mcintosh MD Primary Care Provider [phone] Patricio Rosen MD Unavailable [phone] Oniel Palacios MD Unavailable [phone] Encounter Details Date Type Department Care Team (Late st Contact Info) Description 05/05/2022 Abstract [facility] [address] [place] [address] Provider, MD Steven Social History Tobacco Use [...] on filedocumented in this encounter Care Teams Bar Machine Operator Production Relationship Specialty Start Date End Date Leesa Mcintosh MD [address] [place] [address] PCP - General Family Medicine 06/04/17 Patricio Rosen MD [address] [place] [address] Hematology and Oncology 05/14/24 Onile Palacios MD [address] [place] [address] [address] [place] [address] Gastroenterology 05/14/24 documented as of this encounter
--- OUTSIDE RECORDS SUMMARY | 2025-04-16 05:19 | XMS_ITS | Encounter Summary ---
Author Organization [employer] Address [address] [facility] [address]t [place] [address] Care Team Providers Care Family Service Assistant Name Role Phone Leesa Mcintosh MD Primary Care Provider [phone] Patricio Rosen MD Unavailable [phone] Oniel Palacios MD Unavailable [phone] Encounter Details Date Type Department Care Team (Late st Contact Info) Description 04/25/2023 Orders Only [facility] [address] [place], [place] [phone] Leesa Mcintosh MD [address] [place], [place] [phone] Iron deficiency anemia, unspecified iron deficiency anemia [...] Folate 15.0 > or = 4.0 ng/mL [facility] Comment:Reference Values:> o r = 4.0 ng/mL< 4.0 ng/mL suggests folate deficiency Methotrexate, aminopterin and folinic acid(leucovorin) are chemotherapeutic agents whose molecularstructures are similar to folate; therefore, the Architectfolate assay cannot be used for patients using these drugs. Blood Venous blood specimen / Unknown 04/25/2023 5:09 PM EST 04/25/2023 5:28 PM EST Leesa Mcintosh MD LAB BLOOD ORDERABLES Final Result [facility] [address] [place] [address] [phone] * Vitamin B12 (04/25/2023 5:09 PM EST) Vitamin B12 484 200 - 900 pg/mL [facility] Comment:NORMAL 200-900 PG/ML INDETERMINATE 160-199 PG/ML DEFICIENT < 160 PG/ML Blood Venous blood specimen / Unknown 04/25/2023 5:09 PM EST 04/25/2023 5:28 PM EST Leesa Mcintosh MD LAB BLOOD ORDERABLES Final Result Performing Organization Address [facility] de Phone Number [facility] [address] [place] [phone] * TSH W/Reflex to FT4 (04/25/2023 5:09 PM EST) Pathologist [facility] TSH reflex Free T4 0.66 0.32 - 4.0 uIU/mL [facility] Blood 04/25/2023 5:09 PM EST 04/25/2023 5:28 PM EST Leesa Mcintosh MD LAB BLOOD ORDERABLES Final Result Performing Organization Address [facility] Phone Number [facility] [address] [place] [phone] * (ABNORMAL) Iron And Total Iron Binding Capacity (04/25/2023 5:09 PM EST) [facility] Iron 15(L) 30 - 160 mcg/dL [facility] Total Iron Binding Capacity 416 228 - 428 mcg/dL [facility] Percent Iron Saturation 4(L) 15 - 50 % [facility] Unsaturated Iron Binding 401 ug/dL [facility] Blood Venous blood specimen / Unknown 04/25/2023 5:09 PM EST 04/25/2023 5:28 PM EST Leesa Mcintosh MD LAB BLOOD ORDERABLES Final Result Performing Organization Address [facility] Co de Phone Number [facility] [address] [place] [phone] * (ABNORMAL) CBC auto differential (04/25/2023 5:09 PM EST) Pathologist [facility] White Blood Count 4.6(L) 4.8 - 10.8 X10*3/uL [facility] Red Blood Count 3.63(L) 4.20 - 5.50 X10*6/uL [facility] Hemoglobin 5.8(LL) 12.0 - 16.0 g/dl [facility] Comment:Results of HGB valenzuela d to and read back by ASHLEY Coffmanon 04/25/23 at 1808 by NIK. Hematocrit 23.0(L) 37.0 - 47.0 % [facility] Mean Corpuscular Volume 63.4(L) 80.0 - 98.0 fL [facility] Mean Corpuscular Hemoglobin 16.0(L) 27.0 - 33.0 pg [facility] Mean Corpuscular HGB Conc 25.2(L) 31.0 - 35.0 g/dl [facility] Red Cell Distribution Width 19.3(H) 11.0 - 16.0 % [facility] Platelet Count 325 160 - 400 X10*3/uL [facility] Mean Platelet Volume 9.2(L) 9.4 - 12.3 fL [facility] Neutrophils Percent Auto 50.6 45 - 73 % [facility] Imm Gran Pct Auto 0.4 0.0 - 0.4 % [facility] Lymphocytes Percent Auto 33.3 20 - 40 % [facility] Monocytes Percent Auto 13.7(H) 2 - 11 % [facility] Eosinophils Percent Auto 1.1 0 - 4 % [facility] Basophils Percent Auto 0.9 0 - 2 % [facility] NRBC Pct Auto 0.0 0.0 - 0.2 /100WBC [facility] Neutrophils Absolute Auto 2.3 2.0 - 8.3 x10*3/uL [facility] Imm Gran Abs Auto 0.02 0.00 - 0.03 X10*3/uL [facility] Lymphocytes Absolute Auto 1.5 1.2 - 4.9 X10*3/uL [facility] Monocytes Absolute Auto 0.6 0.1 - 1.2 X10*3/uL [facility] Eosinophils Absolute Auto 0.1 0.0 - 0.4 X10*3/uL [facility] Basophils Absolute Auto 0.0 0.0 - 0.2 X10*3/uL [facility] NRBC Abs Auto 0.000 0.0 - 0.012 X10*3/uL [facility] Blood Venous blood specimen / Unknown 04/25/2023 5:09 PM EST 04/25/2023 5:28 PM EST Leesa Mcintosh MD LAB BLOOD ORDERABLES Final Result Performing Organization Address City/[facility]/ZIP Co de Phone Number [facility] [address] [place] [phone] * (ABNORMAL) Ferritin (04/25/2023 5:09 PM EST) Ferritin <2(L) 10 - 250 ng/mL [facility] Blood Venous blood specimen / Unknown 04/25/2023 5:09 PM EST 04/25/2023 5:28 PM EST Leesa Mcintosh MD LAB BLOOD ORDERABLES Final Result Performing Organization Address City/[facility]/ZIP Co de Phone Number [facility] [address] [place] [phone] documented in this encounter Visit Diagnoses Diagnosis Iron deficiency anemia, unspecified iron deficiency anemia type- Primary documented in this encounter Care Teams Family Service Assistant Relationship Specialty Start Date End Date Leesa Mcintosh MD [address] [place] [phone] PCP - General Family Medicine 06/04/17 Patricio Rosen MD [address] [place] [address] Hematology and Oncology 05/14/24 Oniel Palacios MD [address]rd [place] [address] Gastroenterology 05/14/24 documented as of this encounter
--- OUTSIDE RECORDS SUMMARY | 2025-04-16 05:19 | XMS_ITS | Clinical Summary ---
Author Organization [employer] Address [address] [facility] [address] [place] [address] Care Team Providers Care Interventional Pain Physician Name Role Phone Leesa Mcintosh MD Primary Care Provider [phone] Patricio Rosen MD Unavailable [phone] Oniel Palacios MD Unavailable [phone] Allergies No known active allergies Medications norgestimate-et hinyl estradiol (Ortho-Cyclen) 0.25-35 MG-MCG tabletIndicatio ns:Heavy Menstrual Bleeding,Therap eutic Amenorrhea,plea se allow pt to pickle sorter every 2 months as she is taking [...] this study. Colon cancer screening 07/05/2023 Overview (11/19/2024): -referral placed to Dr. Palacios 04/16/2023 -GI scheduled for Jun 2024 -colonoscopy apt for 02/2025 Excessive and frequent menstruation 04/05/2023 04/05/2023 Overview [...] bleeding who has not followed up with switchboard receptionist or hematology in the past year due to the pandemic. Multiple transfusions in past with Hgb of 5.8. Seen by Commercial Loan Analyst and hematology. Referral to GI 04/16/23 -agrees to call hematology and Commercial Loan Analyst 03/2023, referred again 01/17/24 -rereferred to [employer] [employer] [facility] 03/13/24 Other specified health status 04/05/2023 Overview (11/19/2024): -next physical exam due after -eye care facilitated by Jorge -dental home is [facility] Herniation of intervertebral disc between L5 and S1 10/10/2022 Assessment & Plan (10/10/2022 8:37 AM EDT): Acute low back pain associated with LLE numbness/weakness evaluated in [facility] 10/06/22 Explained pathophysiology of condition, answered all questions Denies hx of chronic back pain, known injury No red flag symptoms Strict ED precautions reviewed Referral to [facility] Pain [facility] and PT for further eval and tx. 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 ) from Last 3 Months Immunizations Immunization Administration Dates Next Due Hep B, adult 03/13/2024 Influenza, Split (incl. purified surface antigen ) 06/04/2012 Tdap 03/13/2024 Family History Medical History Relation Name Comments Anemia Daughter Autism Son Relation Name Status Comments Daughter Son Social History Tobacco Use Types Packs/Day Years Used Date Smoking Tobacco: Never Passive Smoke Exposure: Never Smokeless Tobacco: Never Tobacco Cessation:Counseling Given: Not Answered Alcohol Use Standard Drinks/Week Comments Never 0 (1 standard drink = 0.6 oz pur e alcohol) Depression Answer Date Recorded Patient Health Questionnaire-9 Score 0 03/13/2024 Patient Health Questionnaire-9 Score 0 03/13/2024 Last PHQ-9: Questionnaire Data Not on file 1 Housing Stability Answer Date Recorded What is your housing situation today? I have whitcameron lanza 03/13/[address] you [...] the past 12 months, has t he [employer], gas, oil or water company threatened to [...] Sign Reading Time Taken Comments Blood Pressure 116/70 10/15/2024 5:52 PM EDT Pulse 80 10/15/2024 5:52 PM EDT Temperature 36.1 C (96.9 F) 10/15/2024 5:52 PM EDT Respiratory Rate 20 10/15/2024 5:52 PM EDT Oxygen Saturation 90% 10/15/2024 5:52 PM EDT Inhaled Oxygen Concentration - - Weight 87.7 kg (193 lb 6.4 oz) 10/15/2024 5:52 P M EDT Height 160 cm (5' 3 ) 10/15/2024 5:52 PM EDT Body Mass Index 34.26 10/15/2024 5:52 PM EDT Plan of Treatment Health Maintenance Due Date Last Done Comments CT Colonography 1977 Colonoscopy 1977 FIT DNA/Cologuard 1977 FIT 1977 Sigmoidoscopy 1975 Disability Screening 1977 Alcohol/Substance Use Screening 1989 Family Planning (PISQ) 1992 Pap Smear 1998 Colorectal Cancer Screening 04/28/2020 FOBT 04/28/2020 04/28/2019 Cervical Cancer Screening 02/01/2023 HPV/Cotest 02/01/2023 02/01/2018 Hepatitis B Vaccines (2 of 3 - 19+ 3-dose series) 04/10/2024 03/13/2024 COVID-19 Vaccine ( - season) 2025 05/05/2021, 09/18/2020, 08/21/2020 Influenza Vaccine (#1) 2025 06/04/2012 Depression Screening 03/13/2025 03/13/2024, 03/13/20 SDOH Screening 03/13/2025 03/13/2024 Tobacco Screening 10/15/2025 10/15/2024 Mammogram 11/24/2026 11/24/2024, 10/27, 04/20/2020, Additional history exists Zoster Vaccines (1 [...] patient's age to complete this topic Meningococcal B Vaccine Aged Out No l onger eligible based on patient's age to complete this topic Meningococcal Vaccine Aged Out No luann charlotte eligible based on patient's age to complete this topic Pneumococcal Vaccine: Pediatrics (0 to 5 Years) and At-Risk Patients (6 to 49) Years Aged Out No longer eligible based on patient's age to complete this topic RSV under 20 months Aged Out No longe r eligible based on patient's age to complete this topic Rotavirus Vaccines Aged Out No longer eligible based on patient's age to complete this topic Procedures Procedure Name Priority Date/Time Associated Diagnosis Comments HEMOGLOBIN + HEMATOCRIT Routine 04/16/2025 3:55 AM EST US PELVIS TRANSVAGINAL Routine 12:01 AM EST RED BLOOD COUNT Routine 04/15/2025 8:08 PM EST TYPE AND SCREEN Routine 04/15/2025 8:08 PM EST HCG, TOTAL, QN Routine 04/15/2025 8:08 PM EST MAGNESIUM Routine 04/15/2025 8:08 PM EST BASIC METABOLIC PANEL Routine 04/15/2025 8:08 PM EST HEPATIC FUNCTION PANEL Routine 8:08 PM EST CBC WITH AUTO DIFFERENTIAL Routine 04/15/2025 8:08 PM EST BI MAMMOGRAM SCREENING TOMOSYNTHESIS BILATERAL Routine 11/24/2024 11:10 AM EDT HEPATITIS C AB W/REFL TO HCV RNA, QN, PCR Routine 04/25/2023 5:09 PM EST Routine screening for STI (sexually transmitted infection) HIV 1/2 ANTIGEN/ANTIBODY, FOURTH GENERATION W/RFL Routine 04/25/2023 5:09 PM EST Routine screening for STI (sexually transmitted infection) OCCULT BLOOD, FECAL, IMMUNOASSAY Routine 04/28/2019 7:02 PM EST ZZZ HISTORICAL HPV E6/E7 RFLX RUFUS 16 18/45 Routine 02/01/2018 9:10 AM EDT from Last 3 Months or Most Recently Relevant to Health Maintenance Results * (ABNORMAL) Hemoglobin and Hematocrit (04/16/2025 3:55 AM EST) Hemoglobin 7.3(L) 12.0 - 16.0 g/dl [facility] Hematocrit 25.0(L) 37.0 - 47.0 % [facility] 04/16/2025 3:55 AM EST 04/16/2025 4:00 AM EST us Generic External Data Provider LAB BLOOD ORDERAB LES Final Result Performing Organization Address City/State/[facility] Co de Phone Number [facility] [address] [place] [phone] * US Pelvis Transvaginal (04/16/2025 12:01 AM EST) Anatomical Region Laterality Modality Pelvis Ultrasound 04/16/2025 12:0 1 AM EST Narrative 04/16/2025 12:03 AM EST [address] [address] Ultrasound Report Signed Patient: Tana Barriga MR#: [id number] 1632 : 1975 Acct:[id number] Age/Sex: 49 / F ADM Date: 04/15/25 Loc: HO.ED Attending Dr: Ordering Physician: Ivette Landers MD Date of Service: 04/15/25 Procedure(s): US pelvic and transvaginal Accession Number(s): [id number] cc: Leesa Mcintosh MD; Ivette Landers MD Reason for Exam: heavy vaginal bleeding CLINICAL HISTORY: heavy vaginal bleeding US pelvis transabdominal and transvaginal Comparison: US - US PELVIC AND TRANSVAGINAL - 05/29/24 19:25 EST Findings: Transabdominal scanning performed for overall anatomy. Transvaginal scanning performed for additional detail. Uterus measures 10.8 cm x 5.5 cm x 6.3 cm and is anteverted. A 1.4 cm x 1.1 cm x 1.2 cm and a 1.8 cm x 0.9 cm x 1.4 cm fibroids are visualized. Endometrium 5 mm thickness. No lesions. Right ovary measures 3 cm x 2.5 cm x 3 cm and contains a 2.7 cm x 1.7 cm x 2.3 cm cyst. Left ovary not visualized. No free fluid. IMPRESSION: 1. No evidence of endometrial thickening. Endometrium measures 5 mm. 2. Small fibroids. 3. Right ovarian 2.7 cm cyst. Left ovary not visualized. This document has been electronically signed by: Smitha Schafer MD on 04/16/2025 00:01:47 Dictated By: Smitha Schafer MD Signed By: <Electronically signed by Smitha Schafer MD in OV> 04/16/25 0003 DD/ 0001 TD/TT: 04/16/25 0001 Rehabilitation Assistant: Procedure Note Donotuseinterpreter, Image - 04/16/2025 [place] [id number] Ultrasound Report Signed Patient: Monie Barriga#: [id number] 1632 : 1975Acct:[id number] Age/Sex: 49 / FADM Date: 04/15/25 Loc: HO.ED Attending Dr: Ordering Physician: Ivette Landers MD Date of Service: 04/15/25 Procedure(s): US pelvic and transvaginal Accession Number(s): [id number] cc: Leesa Mcintosh MD; Ivette Landers MD Reason for Exam: heavy vaginal bleeding CLINICAL HISTORY: heavy vaginal bleeding US pelvis transabdominal and transvaginal Comparison: US - US PELVIC AND TRANSVAGINAL - 05/29/24 19:25 EST Findings: Transabdominal scanning performed for overall anatomy. Transvaginal scanning performed for additional detail. Uterus measures 10.8 cm x 5.5 cm x 6.3 cm and is anteverted. A 1.4 cm x 1.1 cm x 1.2 cm and a 1.8 cm x 0.9 cm x 1.4 cm fibroids are visualized. Endometrium 5 mm thickness. No lesions. Right ovary measures 3 cm x 2.5 cm x 3 cm and contains a 2.7 cm x 1.7 cm x 2.3 cm cyst. Left ovary not visualized. No free fluid. IMPRESSION: 1. No evidence of endometrial thickening. Endometrium measures 5 mm. 2. Small fibroids. 3. Right ovarian 2.7 cm cyst. Left ovary not visualized. This document has been electronically signed by: Smitha Schafer MD on 04/16/2025 00:01:47 Dictated By: Smitha Schafer MD Signed By: <Electronically signed by Smitha Schafer MD in OV> 04/16/25 0003 DD/ 0001 TD/TT: 04/16/25 0001 Rehabilitation Assistant: us [facility] External Provider IMG US PROCEDURES Edited Result - Final * (ABNORMAL) CBC auto differential (04/15/2025 8:08 PM EST) White Blood Count 4.5(L) 4.8 - 10.8 X10*3/uL [facility] Red Blood Count 2.89(L) 4.20 - 5.50 X10*6/uL [facility] Hemoglobin 5.0(LL) 12.0 - 16.0 g/dl [facility] Comment:RESULTS OF HGB CABRALES D TO AND READ BACK BY YESSI 04/15/25 AT 2034 BY HIPOLITO. Hematocrit 19.0(LL) 37.0 - 47.0 % [facility] Comment:RESULTS OF HCT CABRALES D TO AND READ BACK BY YESSI 04/15/25 AT 2042 BY HIPOLITO. Mean Corpuscular Volume 65.7(L) 80.0 - 98.0 fL [facility] Mean Corpuscular Hemoglobin 17.3(L) 27.0 - 33.0 pg [facility] Mean Corpuscular HGB Conc 26.3(L) 31.0 - 35.0 g/dl [facility] Red Cell Distribution Width 17.8(H) 11.0 - 16.0 % [facility] Platelet Count 291 160 - 400 X10*3/uL [facility] Mean Platelet Volume 9.5 9.4 - 12.3 fL [facility] Neutrophils Percent Auto 45.8 45 - 73 % [facility] Imm Gran Pct Auto 0.2 0.0 - 0.4 % [facility] Lymphocytes Percent Auto 40.3(H) 20 - 40 % [facility] Monocytes Percent Auto 11.7(H) 2 - 11 % [facility] Eosinophils Percent Auto 0.7 0 - 4 % [facility] Basophils Percent Auto 1.3 0 - 2 % [facility] NRBC Pct Auto 0.0 0.0 - 0.2 /100WBC [facility] Neutrophils Absolute Auto 2.1 2.0 - 8.3 x10*3/uL [facility] Imm Gran Abs Auto 0.01 0.00 - 0.03 X10*3/uL [facility] Lymphocytes Absolute Auto 1.8 1.2 - 4.9 X10*3/uL [facility] Monocytes Absolute Auto 0.5 0.1 - 1.2 X10*3/uL [facility] Eosinophils Absolute Auto 0.0 0.0 - 0.4 X10*3/uL [facility] Basophils Absolute Auto 0.1 0.0 - 0.2 X10*3/uL [facility] NRBC Abs Auto 0.000 0.0 - 0.012 X10*3/uL [facility] 04/15/2025 8:08 PM EST 04/15/2025 8:17 PM EST us Generic External Data Provider LAB BLOOD ORDERAB LES Final Result Performing Organization Address [facility]/ZIP Co de Phone Number [facility] [address] [place] [address] [phone] * Red blood count (04/15/2025 8:08 PM EST) Red Blood Cells: [id number] OP RC TRANSFUSED 04/15/25 2131 [id number] OP RC TRANSFUSED 04/16/25 0037 [id number] OP RC TRANSFUSED 04/16/25 0506 [facility] 04/15/2025 8:08 PM EST 04/15/2025 8:20 PM EST us Generic External Data Provider LAB BLOOD ORDERAB LES Final Result [facility] [address] [place] [phone] * Type and screen (04/15/2025 8:08 PM EST) Blood Type OP [facility] Antibody Screen NEGATIVE [facility] 04/15/2025 8:08 PM EST 04/15/2025 8:20 PM EST Narrative [facility] - 04/16/2025 5:15 AM EST Results at Issue Units as of 04/15/25 2132 ...Test View Group: Most Recent HGB HCT Results LABORATORYDate Time Test Result Flag Normal Range04/15/252007 HGB 5.0 #*L 12.0-16.0 g/dlRESULTS OF HGB CALLED TO AND [facility] 04/15/25 AT 2034 BY HIPOLITO.04/15/252007 HCT 19.0 #*L 37.0-47.0 %RESULTS OF HCT CALLED TO AND READ BACK [facility] 04/15/25 AT 2042 BY HIPOLITO. Results at Issue Units as of 04/16/257 ...Test View Group: Most Recent HGB HCT Results LABORATORYDate Time Test Result Flag Normal Range04/15/252007 HGB 5.0 #*L 12.0-16.0 g/dlRESULTS OF HGB CALLED TO AND READ BACK [facility] 04/15/25 AT 2034 BY HIPOLITO.04/15/252007 HCT 19.0 #*L 37.0-47.0 %RESULTS OF HCT CALLED TO AND READ BACK BY [facility] 04/15/25 AT 2042 BY HIPOLITO. Results at Issue Units as of 04/16/25 0507 ...Test View Group: Most Recent HGB HCT Results LABORATORYDate Time Test Result Flag Normal Range04/16/25 0355 HGB 7.3 # L 12.0-16.0 g/dl04/16/25 0355 HCT 25.0 # L 37.0-47.0 % Hgb < 7 gmNo [email or web address] External Data Provider LAB BLOOD BANK TE ST ORDERABLES Final Result [facility] [address] [place] [phone] * hCG, Total, Quantitative (04/15/2025 8:08 PM EST) HCG Quantitative <2 mIU/mL [facility] Comment:Weeks post LMP Appro ximate hCG(Last Menstrual Period) Range (mIU/ml)3 - 4 weeks 9 - 1304 - 5 weeks 75 - 2,6005 - 6 weeks 850 - 20,8006 - 7 weeks 4000 - 100,2007 - 12 weeks 11,500 - 289,12970 - 16 weeks 18,300 - 137,00680 - 29 weeks (2nd trimester) 1,400 - 53,73746 - 41 weeks (3rd trimester) 940 - 60,000The [place] B- hCG assay is used for the early detection ofpregnancy; it cannot be used to diagnose any conditionunrelated to . If a B-hCG level is not supportedby the clinical evidence, results should be confirmed by analternative method (qualitative urine hCG, for example). 04/15/2025 8:08 PM EST 04/15/2025 8:17 PM EST Generic External Data Provider LAB BLOOD ORDERAB LES Final Result Performing Organization Address City/[facility]/ZIP Co de Phone Number [facility] [address] [place] [phone] * Magnesium (04/15/2025 8:08 PM EST) [facility] Magnesium 2.0 1.6 - 2.6 mg/dL [facility] 04/15/2025 8:08 PM EST 04/15/2025 8:17 PM EST Generic External Data Provider LAB BLOOD ORDERAB LES Final Result Performing Organization Address [facility] Phone Number [facility] [address] [place] [phone] * Hepatic Function Panel (04/15/2025 8:08 PM EST) [facility] Bilirubin, Total 0.2 0.0 - 1.0 mg/dL [facility] Bilirubin, Direct <0.2 0.0 - 0.5 mg/dL [facility] Aspartate Amino Transferase 21 5 - 31 U/L [facility] Alanine Aminotransferase 11 0 - 31 U/L [facility] Total Protein 6.8 6.5 - 8.0 g/dL [facility] Albumin Level 4.1 3.5 - 5.0 g/dL [facility] Alkaline Phosphatase 78 39 - 117 U/L [facility] 04/15/2025 8:08 PM EST 04/15/2025 8:17 PM EST Generic External Data Provider LAB BLOOD ORDERAB LES Final Result Performing Organization Address [facility] Co de Phone Number [facility] [address] [place] [phone] * (ABNORMAL) Basic Metabolic Panel (04/15/2025 8:08 PM EST) [facility] Sodium 139 135 - 145 mmol/L [facility] Potassium 3.4 3.3 - 5.1 mmol/L [facility] Chloride 111(H) 96 - 108 mmol/L [facility] Carbon Dioxide 20(L) 22 - 29 mmol/L [facility] Anion Gap 11(L) 12 - 20 [facility] Urea Nitrogen (BUN) 11 9 - 16 mg/dL [facility] Creatinine, Serum 0.59 0.5 - 1.4 mg/dL [facility] Creatinine Clr Calc Pharmacy 119.3 [facility] Comment:Provided height and weight: 160.02 cm,81.647 kg.eGFR (calculated from the MDRD study equation) and eCrCl(calculated from the Cockcroft-Gault equation) are based ondifferent parameters and may not yield comparable results.If eCrCl result is absurd, please check patient'sheight/weight. Estimated Glomerular Filt Rate >60 [facility] Comment:Chronic Kidney Disea se: Estimated GFR < 60 mL/min/1.15g8Raevhg Kidney Disease: Estimated GFR < 15 mL/min/1.73m2 Glucose 116(H) 60 - 115 mg/dL [facility] Calcium 8.6 8.4 - 10.2 mg/dL [facility] 04/15/2025 8:08 PM EST 04/15/2025 8:17 PM EST us Generic External Data Provider LAB BLOOD ORDERAB LES Final Result Performing Organization Address City/State/[facility] Co de Phone Number [facility] [address] [place] [address] [place] [phone] * BI Mammogram Screening Tomosynthesis Bilateral (11/24/2024 11:10 AM EDT) Anatomical Region Laterality Modality Breast Bilateral Mammography 11/24/2024 11:1 0 AM EDT Narrative 12/07/2024 2:03 PM EDT [facility] [address] [place] [address] Mammography Report Signed Patient: Tana Barriga MR#: [id number] 1632 : 1975 Acct:[id number] Age/Sex: 49 / F ADM Date: 11/24/24 Loc: DESIREEO Attending Dr: Leesa Mcintosh MD Ordering Physician: Leesa Mcintosh MD Results: 1N egative Date of Service: 11/24/24 Follow Up: 1 Year From Orig ina Mammogram Procedure(s): MM tomosynthesis screening BI Accession Number(s): [id number] cc: Leesa Mcintosh MD EXAMINATION: MM SCREENING DIGITAL BREAST TOMOSYNTHESIS, BILATERAL CLINICAL INFORMATION: Screening. Asymptomatic. COMPARISON: Mammography: Comparison is made with available priors TECHNIQUE: Digital breast mammography with tomosynthesis is performed in both the craniocaudal and mediolateral oblique views along with computer-aided detection (CAD). FINDINGS: There are scattered areas of fibroglandular [...] target due date for their next mammogram. Electronically signed by: Francie Werner DO 12/07/2024 02:01 PM EDT Dictated By: Francie Werner DO Signed By: <Electronically signed by Francie Werner DO in OV> 12/07/24 1401 DD/ 1110 TD/TT: 11/24/24 1120 Rehabilitation Assistant: Procedure Note Donotuseinterpreter, Image - 12/07/2024 [facility] [address] [place], [place] [address] Mammography Report Signed Patient: Monie Barriga#: [id number] 1632 : 1975Acct:[id number] Age/Sex: 49 / FADM Date: 11/24/24 Loc: DESIREEO Attending Dr: Leesa Mcintosh MD Ordering Physician: Leesa Mcintosh MDResults: 1N egative Date of Service: 11/24/24Follow Up: 1 Year From [facility]a Mammogram Procedure(s): MM tomosynthesis screening BI Accession Number(s): [id number] cc: Leesa Mcintosh MD EXAMINATION: MM SCREENING DIGITAL BREAST TOMOSYNTHESIS, BILATERAL CLINICAL INFORMATION: Screening. Asymptomatic. COMPARISON: Mammography: Comparison is made with available priors TECHNIQUE: Digital breast mammography with tomosynthesis is performed in both the craniocaudal and mediolateral oblique views along with computer-aided detection (CAD). FINDINGS: There are scattered areas of fibroglandular [...] target due date for their next mammogram. Electronically signed by: Francie Werner DO 12/07/2024 02:01 PM EDT Dictated By: Francie Werner DO Signed By: <Electronically signed by Francie Werner DO in OV> 12/07/24 1401 DD/ 1110 TD/TT: 11/24/24 1120 Rehabilitation Assistant: Leesa Mcintosh MD IMG BI PROCEDURES Final Re sult * Hepatitis C Antibody with Reflex to HCV, RNA, Quantitative, Real-Time PCR (04/25/2023 5:09 PM EST) Hepatitis C Antibody Nonreactive Nonreactive [facility] Comment:Antibodies to HCV no t detected; does not exclude early acuteHCV infection. Blood Venous blood specimen / Unknown 04/25/2023 5:09 PM EST 04/25/2023 5:28 PM EST Leesa Mcintosh MD LAB BLOOD ORDERABLES Final Result Performing Organization Address [facility]/ZIP Co de Phone Number [facility] [address] [place] [phone] * HIV-1/2 Antigen and Antibodies, Fourth Generation, with Reflexes (04/25/2023 5:09 PM EST) HIV AB/AG Nonreactive Nonreactive [facility] Comment:HIV-1 p24 Ag and/or HIV-1/HIV-2 Ab not detected.A test result that is nonreactive does not exclude thepossibility of exposure to or infection with HIV-1 and/orHIV-2. Nonreactive results in this assay for individualswith prior exposure to HIV-1 and/or HIV-2 may be due toantigen and antibody levels that are below the limit ofdetection of this assay.The [employer] HIV Ag/Ab Combo assay result andsupplemental assay results should be interpreted inconjunction with the patient's clinical presentation,history and other laboratory results. If the results areinconsistent with clinical evidence, additional testing issuggested to confirm the result. Blood Venous blood specimen / Unknown 04/25/2023 5:09 PM EST 04/25/2023 5:28 PM EST Leesa Mcintosh MD LAB BLOOD ORDERABLES Final Result Performing Organization Address [facility] Co de Phone Number [facility] [address] [place] [phone] * OCCULT BLOOD STOOL (04/28/2019 7:02 PM EST) OCCULT BLOOD STOOL [facility] 04/28/2019 7:02 PM EST [facility] Center Provider LAB BODY FLUIDS AND STOOL S ORDERABLES Final Result Performing Organization Address City/[facility]/ZIP Co de Phone Number [facility] [address] [place] [address], * HPV E6/E7 RFLX RUFUS 16 18/45 (02/01/2018 9:10 AM EDT) ADDITIONAL TESTING Not indicated () [facility] Comment: Test Performed by [employer], [employer] [place] [place], [address] [place], [place] Elian Moscoso M.D., Ph.D., Director of Laboratories , CLIA [id number] HPV mRNA E6/E7 Not Detected NOT DETECTED [facility] Comment: This test was performed using the APTIMA(R) HPV Assay ([employer] This assay detects E6/E7 viral messenger RNA (mRNA) from 14 high-risk HPV types (16,18,31,33,35,39,45,51, 52,56,58,59,66,68). For additional information please refer to: http://education.StorPool/faq/CZG034x3 (This link is being provided for informational/ educational purposes only.) The analytical performance characteristics of this assay have been determined by [facility] [place], [place]. The modifications have not been cleared or approved by the FDA. This assay has been validated pursuant to the CLIA regulations and is used for clinical purposes. Please note: Effective 02/07/2016, HPV testing will be performed using [employer]'s APTIMA test which targets mRNA. Detecting mRNA instead of DNA, as in older methods, offers significant improvements in specificity. HPV 16 RNA Test not performed [facility] HPV 18/45 RNA Test not performed [facility] 02/01/2018 9:10 AM EDT us Leesa Mcintosh MD HISTORICAL/NON ORDERABLE L ABS Final Result [facility] [address] from Last 3 Months or Most Recently Relevant to Health Maintenance Insurance [facility] STAND[facility] Care Teams Interventional Pain Physician Relationship Specialty Start Date End Date [place], MD Leesa [address] [place] [phone] PCP - General Family Medicine 06/04/17 Patricio Rosen MD [address] [place] [phone] Hematology and Oncology 05/14/24 Oniel Palacios MD [address] [place] [address] 3rd [place] [address] Gastroenterology 05/14/24
--- OUTSIDE RECORDS SUMMARY | 2025-04-16 05:19 | XMS_ITS | Encounter Summary ---
Author Organization [employer] Address [address] [facility] 7t [place] [address] Care Team Providers Care Income Auditor Name Role Phone Leesa Mcintosh MD Primary Care Provider [phone] Patricio Rosen MD Unavailable [phone] Oniel Palacios MD Unavailable [phone] Reason for Referral * Consultation (Routine) - Closed Specialty Diagnoses / Procedures Referred By Contac t Referred To Contact Hematology and Oncology Diagnoses Iron deficiency anemia, unspecified iron deficiency anemia type Leesa Mcintosh MD [address] [place] [address] Phone: tel: fax: [facility] Referral ID Status Reason Start Date Expiration Date V isits Requested Visits Authorized [id number] Closed Specialty Services Required 01/17/2024 01/16/2025 10 10 Encounter Details Date Type Department Care Team (Late st Contact Info) Description 01/17/2024 Orders Only [facility] MEDICINE [address] [place], [place] [phone] Leesa Mcintosh MD [address] [place], [place] [phone] Iron deficiency anemia, unspecified iron deficiency anemia [...] Primary documented in this encounter Care Teams Income Auditor Relationship Specialty Start Date End Date Leesa Mcintosh MD [address] [place] [address] PCP - General Family Medicine 06/04/17 Patricio Rosen MD [address] [place] [phone] Hematology and Oncology 05/14/24 Oniel Palacios MD [address] [place] [address] 3[address] [place] [address] Gastroenterology 05/14/24 documented as of this encounter
--- OUTSIDE RECORDS SUMMARY | 2025-04-16 05:19 | XMS_ITS | Encounter Summary ---
Author Organization [employer] Address [address] [facility] 7t [place] [address] Care Team Providers Care Pastry Chef Name Role Phone Leesa Mcintosh MD Primary Care Provider [phone] Patricio Rosen MD Unavailable [phone] Oniel Palacios MD Unavailable [phone] Encounter Details Date Type Department Care Team (Late st Contact Info) Description 11/04/2024 Telephone [facility] MEDICINE [address] [place], [place] [phone] Leesa Mcintosh MD [address] [place], [place] [phone] Social History Tobacco Use Types Packs/Day Years Used Date Smoking Tobacco: Never Passive Smoke Exposure: Never Smokeless Tobacco: Never Alcohol Use Standard [...] on file documented as of this encounter Visit Diagnoses Not on filedocumented in this encounter Additional Health Concerns Assessment Noted Time PHQ-9 Depression Total Score: 0 03/13/20 11:01 AM EDT documented as of this encounter Care Teams Pastry Chef Relationship Specialty Start Date End Date Leesa Mcintosh MD [address] [place] [address] PCP - General Family Medicine 06/04/17 Patricio Rosen MD [address] [place] [address] Hematology and Oncology 05/14/24 Oniel Palacios MD [address] 3rd [place] [address] Gastroenterology 05/14/24 documented as of this encounter
--- OUTSIDE RECORDS SUMMARY | 2025-04-16 05:19 | XMS_ITS | Encounter Summary ---
Author Organization [employer] Address [address] [facility] 7t [place] [address] Care Team Providers Care Legal Arbitrator Name Role Phone Leesa Mcintosh MD Primary Care Provider [phone] Patricio Rosen MD Unavailable [phone] Oniel Palacios MD Unavailable [phone] Encounter Details Date Type Department Care Team (Late st Contact Info) Description 04/16/2025 Orders Only GENERIC EXTERNAL DATA DEPARTMENT Provider, Generic External Data Social History Tobacco Use Types Packs/Day Years [...] + HEMATOCRIT Routine 04/16/2025 3:55 AM EST documented in this encounter Results * (ABNORMAL) Hemoglobin and Hematocrit (04/16/2025 3:55 AM EST) Hemoglobin 7.3(L) 12.0 - 16.0 g/dl [facility] Hematocrit 25.0(L) 37.0 - 47.0 % [facility] 04/16/2025 3:55 AM EST 04/16/2025 4:00 AM EST us Generic External Data Provider LAB BLOOD ORDERAB LES Final Result [facility] [address] [place] [address] [phone] documented in this encounter Visit Diagnoses Not on filedocumented in this encounter Additional Health Concerns Assessment Noted Time PHQ-9 Depression Total Score: 0 03/13/20 24 11:01 AM EDT documented as of this encounter Care Teams Legal Arbitrator Relationship Specialty Start Date End Date Leesa Mcintosh MD [address] [place] [phone] PCP - General Family Medicine 06/04/17 Patricio Rosen MD [address] [place] [address] Hematology and Oncology 05/14/24 Oniel Palacios MD [address] [place] [address] 3rd [place] [address] Gastroenterology 05/14/24 documented as of this encounter
--- OUTSIDE RECORDS SUMMARY | 2025-04-16 05:20 | XMS_ITS | Encounter Summary ---
Author Organization [employer] Address [address] [facility] 7t [place] [address] Care Team Providers Care Rail Detector Car Operator Name Role Phone Leesa Mcintosh MD Primary Care Provider [phone] Patricio Rosen MD Unavailable [phone] Oniel Palacios MD Unavailable [phone] Encounter Details Date Type Department Care Team (Late st Contact Info) Description 04/15/2025 Orders Only GENERIC EXTERNAL DATA DEPARTMENT [...] Priority Date/Time Associated Diagnosis Comments US PELVIS TRANSVAGINAL Routine 04/16/2025 12:01 AM EST CBC WITH AUTO DIFFERENTIAL Routine 04/15/2025 8:08 PM EST RED BLOOD COUNT Routine 04/15/2025 8:08 PM EST TYPE AND SCREEN Routine 04/15/2025 8:08 PM EST HCG, TOTAL, QN Routine 04/15/2025 8:08 PM EST MAGNESIUM Routine 04/15/2025 8:08 PM EST HEPATIC FUNCTION PANEL Routine 04/15/2025 8:08 PM EST BASIC METABOLIC PANEL Routine 04/15/2025 8:08 PM EST documented in this encounter Results * US Pelvis Transvaginal (04/16/2025 12:01 AM EST) Anatomical Region Laterality Modality Pelvis Ultrasound 04/16/2025 12:0 1 AM EST Narrative 04/16/2025 12:03 AM EST [address] [place] [address] Ultrasound Report Signed Patient: Tana Barriga MR#: [id number] : 1975 Acct:[id number] Age/Sex: 49 / F ADM Date: 04/15/25 Loc: HO.ED Attending Dr: Ordering Physician: Ivette Landers MD Date of Service: 04/15/25 Procedure(s): US pelvic and transvaginal Accession Number(s): [id number] cc: Leesa Mcintosh MD; Ivette Landers MD [...] 04/16/25 0003 DD/ 0001 TD/TT: 04/16/25 0001 Info Print Press Operator: Procedure Note Donotuseinterpreter, Image - 04/16/[address] [address] Ultrasound Report Signed Patient: Tana BarrigaMR#: [id number] : 1975Acct:[id number] Age/Sex: 49 / FADM Date: 04/15/25 Loc: HO.ED Attending Dr: Ordering Physician: Ivette Landers MD Date of Service: 04/15/25 Procedure(s): US pelvic and transvaginal Accession Number(s): [id number] cc: Leesa Mcintosh MD; Ivette Landers MD [...] 04/16/25 0003 DD/ 0001 TD/TT: 04/16/25 0001 Info Print Press Operator: [facility] External Provider IMG US PROCEDURES Edited Result - Final * Red blood count (04/15/2025 8:08 PM EST) Red Blood Cells: [id number] OP RC TRANSFUSED 04/15/25 2131 [id number] OP RC TRANSFUSED 04/16/25 0037 [id number] OP RC TRANSFUSED 04/16/25 0506 [facility] 04/15/2025 8:08 PM EST 04/15/2025 8:20 PM EST us Generic External Data Provider LAB BLOOD ORDERAB LES Final Result [facility] [address] [place] [phone] * Type and screen (04/15/2025 8:08 PM EST) Blood Type OP [facility] Antibody Screen NEGATIVE [facility] 04/15/2025 8:08 PM EST 04/15/2025 8:20 PM EST Narrative [facility] - 04/16/2025 5:15 AM EST Results at Issue Units as of 04/15/252 ...Test View Group: Most Recent HGB HCT Results LABORATORYDate Time Test Result Flag Normal Range04/15/252007 HGB 5.0 #*L 12.0-16.0 g/dlRESULTS OF HGB CALLED TO AND READ BACK BY YESSI 04/15/25 AT 2034 BY HIPOLITO.04/15/252007 HCT 19.0 #*L 37.0-47.0 %RESULTS OF HCT CALLED TO AND READ BACK BY YESSI 04/15/25 AT 2042 BY HIPOLITO. Results at Issue Units as of 04/16/257 ...Test View Group: Most Recent HGB HCT Results LABORATORYDate Time Test Result Flag Normal Range04/15/252007 HGB 5.0 #*L 12.0-16.0 g/dlRESULTS OF HGB CALLED TO AND READ BACK BY YESSI 04/15/25 AT 2034 BY HIPOLITO.04/15/252007 HCT 19.0 #*L 37.0-47.0 %RESULTS OF HCT CALLED TO AND READ BACK BY YESSI 04/15/25 AT 2043 BY HIPOLITO. Results at Issue Units as of 04/16/25 0507 ...Test View Group: Most Recent HGB HCT Results LABORATORYDate Time Test Result Flag Normal Range04/16/25 0355 HGB 7.3 # L 12.0-16.0 g/dl04/16/25354 HCT 25.0 # L 37.0-47.0 % Hgb < 7 gmNo Generic External Data Provider LAB BLOOD BANK [facility] ORDERABLES Final Result [facility] [address] [place] [phone] * hCG, Total, Quantitative (04/15/2025 8:08 PM EST) HCG Quantitative <2 mIU/mL [facility] Comment:Weeks post LMP Appro ximate hCG(Last Menstrual Period) Range (mIU/ml)3 - 4 weeks 9 - 1304 - 5 weeks 75 - 2,6005 - 6 weeks 850 - 20,8006 - 7 weeks 4000 - 100,2007 - 12 weeks 11,500 - 289,68063 - 16 weeks 18,300 - 137,72653 - 29 weeks (2nd trimester) 1,400 - 53,72687 - 41 weeks (3rd trimester) 940 - [...] ORDERAB LES Final Result Performing Organization Address City/[facility] Co de Phone Number [facility] [address] [place] [address] [phone] * Magnesium (04/15/2025 8:08 PM EST) Magnesium 2.0 1.6 - 2.6 mg/dL [facility] 04/15/2025 8:08 PM EST 04/15/2025 8:17 PM EST [employer] External Data Provider LAB BLOOD ORDERAB LES Final Result Performing Organization Address [facility] Phone Number [facility] [address] [place] [address] [phone] * (ABNORMAL) Basic Metabolic Panel (04/15/2025 8:08 PM EST) Pathologist [facility] Sodium 139 135 - 145 mmol/L [facility] Potassium 3.4 3.3 - 5.1 mmol/L [facility] Chloride 111(H) 96 - 108 mmol/L [facility] Carbon Dioxide 20(L) 22 - 29 mmol/L [facility] Anion Gap 11(L) 12 - 20 [facility] Urea Nitrogen (BUN) 11 9 - 16 mg/dL [facility] Creatinine, Serum 0.59 0.5 - 1.4 mg/dL [facility] Creatinine Clr Calc Pharmacy 119.3 [facility] Comment:Provided height and weight: 160.02 cm,81.647 kg.eGFR (calculated from the MDRD study equation) and eCrCl(calculated from the Cockcroft-Gault equation) are based ondifferent parameters and may not yield comparable results.If eCrCl result is absurd, please check patient'sheight/weight. Estimated Glomerular Filt Rate >60 [facility] Comment:Chronic Kidney Disea se: Estimated GFR < 60 mL/min/1.50j9Hjjuii Kidney Disease: Estimated GFR < 15 mL/min/1.73m2 Glucose 116(H) 60 - 115 mg/dL [facility] Calcium 8.6 8.4 - 10.2 mg/dL [facility] 04/15/2025 8:08 PM EST 04/15/2025 8:17 PM EST Generic External Data Provider LAB BLOOD ORDERAB LES Final Result Performing Organization Address [facility] Co de Phone Number [facility] [address] [place] [phone] * Hepatic Function Panel (04/15/2025 8:08 PM EST) Pathologist [facility] Bilirubin, Total 0.2 0.0 - 1.0 mg/dL [facility] Bilirubin, Direct <0.2 0.0 - 0.5 mg/dL [facility] Aspartate Amino Transferase 21 5 - 31 U/L [facility] Alanine Aminotransferase 11 0 - 31 U/L [facility] Total Protein 6.8 6.5 - 8.0 g/dL [facility] Albumin Level 4.1 3.5 - 5.0 g/dL [facility] Alkaline Phosphatase 78 39 - 117 U/L [facility] 04/15/2025 8:08 PM EST 04/15/2025 8:17 PM EST [employer] External Data Provider LAB BLOOD ORDERAB LES Final Result Performing Organization Address [facility] Co de Phone Number [facility] [address] [place] [phone] * (ABNORMAL) CBC auto differential (04/15/2025 8:08 PM EST) White Blood Count 4.5(L) 4.8 - 10.8 X10*3/uL [facility] Red Blood Count 2.89(L) 4.20 - 5.50 X10*6/uL [facility] Hemoglobin 5.0(LL) 12.0 - 16.0 g/dl [facility] Comment:RESULTS OF HGB CABRALES D TO AND READ BACK BY YESSI 04/15/25 AT 2034 BY HIPOLITO. Hematocrit 19.0(LL) 37.0 - 47.0 % [facility] Comment:RESULTS OF HCT CABRALES D TO AND READ BACK BY YESSI 04/15/25 AT 2042 BY HIPOLITO. Mean Corpuscular Volume 65.7(L) 80.0 - 98.0 fL [facility] Mean Corpuscular Hemoglobin 17.3(L) 27.0 - 33.0 pg [facility] Mean Corpuscular HGB Conc 26.3(L) 31.0 - 35.0 g/dl [facility] Red Cell Distribution Width 17.8(H) 11.0 - 16.0 % [facility] Platelet Count 291 160 - 400 X10*3/uL [facility] Mean Platelet Volume 9.5 9.4 - 12.3 fL [facility] Neutrophils Percent Auto 45.8 45 - 73 % [facility] Imm Gran Pct Auto 0.2 0.0 - 0.4 % [facility] Lymphocytes Percent Auto 40.3(H) 20 - 40 % [facility] Monocytes Percent Auto 11.7(H) 2 - 11 % [facility] Eosinophils Percent Auto 0.7 0 - 4 % [facility] Basophils Percent Auto 1.3 0 - 2 % [facility] NRBC Pct Auto 0.0 0.0 - 0.2 /100WBC [facility] Neutrophils Absolute Auto 2.1 2.0 - 8.3 x10*3/uL [facility] Imm Gran Abs Auto 0.01 0.00 - 0.03 X10*3/uL [facility] Lymphocytes Absolute Auto 1.8 1.2 - 4.9 X10*3/uL [facility] Monocytes Absolute Auto 0.5 0.1 - 1.2 X10*3/uL [facility] Eosinophils Absolute Auto 0.0 0.0 - 0.4 X10*3/uL [facility] Basophils Absolute Auto 0.1 0.0 - 0.2 X10*3/uL [facility] NRBC Abs Auto 0.000 0.0 - 0.012 X10*3/uL [facility] 04/15/2025 8:08 PM EST 04/15/2025 8:17 PM EST us Generic External Data Provider LAB BLOOD ORDERAB LES Final Result [facility] [address] [place] [address] [phone] documented in this encounter Visit Diagnoses Not on filedocumented in this encounter Additional Health Concerns Assessment Noted Time PHQ-9 Depression Total Score: 0 03/13/20 24 11:01 AM EDT documented as of this encounter Care Teams Rail Detector Car Operator Relationship Specialty Start Date End Date Leesa Mcintosh MD [address] [place] [phone] PCP - General Family Medicine 06/04/17 Patricio Rosen MD [address] [place] [address] Hematology and Oncology 05/14/24 Oniel Palacios MD [address]rd [place] [address] Gastroenterology 05/14/24 documented as of this encounter
== END 2025-04-16 08:10 | disposition home or self-care (01) ==
PROVIDERS: Physician Assistant; Emergency Provider Emergency Medicine; PCP Family Medicine
DX: D50.9 Iron deficiency anemia, unspecified (principal); N93.9 Abnormal uterine and vaginal bleeding, unspecified; R53.1 Weakness
CPT/HCPCS: 36415; 36430; 76830; 76856; 80048; 80076; 83735; 84702; 85014; 85018; 85025; 86850; 86900; 86901; 86923; 96374; 99285; J2151; P9016

== ENCOUNTER → 2025-04-15 21:58 | Outpatient (BNV) | payer MEDICAID, SELFPAY | PROVIDERS: Emergency Provider Emergency Medicine; PCP Family Medicine; Visit Provider Specialist | DX: N83.291 Other ovarian cyst, right side (principal); D25.9 Leiomyoma of uterus, unspecified; N93.9 Abnormal uterine and vaginal bleeding, unspecified | CPT/HCPCS: 76830; 76856 ==